=== PATIENT | female | born 1985 | race Caucasian/White ===

== ENCOUNTER 2018-02-16 07:00 | Inpatient (IN) | payer OTHER, SELFPAY ==
[2018-02-16 07:14] VITALS: BMI 42.7
[2018-02-16] MEDS: Lactated Ringers 1,000 ML 50 ML IV ×3 (07:30→11:59)
[2018-02-16 07:57] LABS: Hematocrit 37.3 % (37-47); Hemoglobin 12.9 g/dl (12.0-15.0); Mean Corp Hgb Conc 34.6 g/gl (32-36); Mean Corpuscular Hgb 30.1 pg (27.0-32.0); Mean Corpuscular Volume 87.1 fL (81-99); Mean Platelet Vol. 11.5 fl (6.2-12.0); Platelet Count 181 K/mm3 (150-450); RBC Distribution Width CV 13.4 % (11.6-14.6); RBC Distribution Width SD 41.1 fl (35.1-43.9); Red Blood Count 4.28 M/mm3 (4.2-5.4); Scan Indicated on CBC? Y/N NO; White Blood Count 13.9 K/mm3 (4.4-11.0)
[2018-02-16] MEDS: Oxytocin 30 units/NS 500 ml 30 UNITS/500 ML IV.SOLN IV (07:57)
[2018-02-16] MEDS: fentaNYL-bupivacaine (epidural) 100 ML BAG EPIDURAL ×2 (09:15→13:30)
[2018-02-16 10:41] LABS: Bedside Glucose 97 mg/dL (70-110)
[2018-02-16] MEDS: proMETHazine 25 MG/ML Syringe IV (14:07)
[2018-02-16] MEDS: Oxytocin 30 units/NS 500 ml 30 UNITS/500 ML IV.SOLN 334 UNITS IV (16:33)
[2018-02-16] MEDS: Oxytocin 30 units/NS 500 ml 30 UNITS/500 ML IV.SOLN 167 UNITS IV (17:03)
[2018-02-16] MEDS: 0.9% Saline Lock 10 ML Syringe IV (18:36)
[2018-02-16 20:10] VITALS: BP 120/65; PULSE 79; RESP 17; TEMP 36.6; O2SAT 99
[2018-02-16] MEDS: Naproxen 250 MG Tablet PO (21:39)
[2018-02-16 23:40] VITALS: BP 125/62; PULSE 66; RESP 18; TEMP 36.2; O2SAT 100
[2018-02-17] MEDS: Acetaminophen 500 MG Tablet 1000 MG PO (02:41)
[2018-02-17 04:30] VITALS: BP 128/66; PULSE 53; RESP 18; TEMP 35.8; O2SAT 99
[2018-02-17] MEDS: Naproxen 250 MG Tablet PO ×2 (05:49→18:12)
--- NOTE | 2018-02-17 07:47 | PCM.HP.OB ---
History Date of Admission: 02/16/18 Final MIGUEL: 02/14/18 Gestational age: 40 Weeks and 3 Days History of this : 35 yo @ 40w3d presents IOL postdates and AMA Pertinent Past Medical History: PFSH PMH negative PSH negative Family History Grandmother Diabetes Mother Cancer Brain Tumor Social History Smoking Status: Never smoker alcohol intake: never substance use type: does not use caffeine: Yes frequency: 3-4 times per week seatbelt use: always do you feel safe at home: Yes additional social history: [employer] History 4 Elective abortions Hx Para 2 Spontaneous abortions Hx # Term Pregnancies Ectopic pregnancies Hx # Pregnancies Multiple births # of living children Past Pregnancies Del. Date Name GA/Weeks Outcome Route Bth Weight Infant Gen Labor Lgth Anesthesia Del Locatn Provider FOB Unknown 2002 Daniella Unknown 2005 Mary Allergies shellfish derived Allergy (Verified 02/16/18 20:56) Vomiting Current Medications Acetaminophen (Tylenol) 1,000 mg PO Q8H PRN PRN PRN Reason: MILD PAIN (1-3/10)/Temp>99.6F Last Admin: 02/17/18 02:41 Dose: 1,000 mg Bisacodyl (Dulcolax) 10 mg RECTAL UD PRN PRN Reason: If no BM Dibucaine (Dibucaine) 1 applic TOPICAL TID PRN PRN; Protocol PRN Reason: Discomfort Hydrocortisone (Hytone) 1 applic TOPICAL TID PRN PRN; Protocol PRN Reason: Discomfort Lactated Ringer's () 1,000 mls @ 15 mls/hr IV .Q48H MARY PRN Reason: KVO Last Admin: 02/16/18 19:45 Dose: Not Given Methylergonovine Maleate (Methergine) 0.2 mg IM X1 PRN PRN Reason: Excess bleeding/uterine atony Naproxen (Naprosyn) 250 - 500 mg PO Q8H PRN PRN PRN Reason: MILD PAIN (1-3/10) Last Admin: 02/17/18 05:49 Dose: 500 mg Ondansetron HCl (Zofran) 4 mg IV Q4H PRN PRN PRN Reason: Nausea Oxycodone HCl (Oxyir) 5 - 10 mg PO Q4H PRN PRN PRN Reason: MOD-SEVERE PAIN (-09/05) Senna/Docusate Sodium (Senokot-S, Babs-Colace) 1 - 2 tablet PO DAILY PRN PRN PRN Reason: Constipation Simethicone (Mylicon) 80 mg PO PCHS PRN PRN Reason: Indigestion/Stomach pain Sodium Chloride () 5 - 15 ml IV UD PRN PRN Reason: SALINE FLUSH Smoking Status: Never smoker Alcohol: None Drug Use: none Number of Fetus(es): 1 - 130s moderate variability reactive no decls Review of Systems Constitutional: Denies: Chills, Fever, Weight Change HEENT: Denies: Head Aches, Sinus Congestion, Sinus Drainage Cardiovascular: Denies: Chest Pain, Palpitations Respiratory: Denies: Cough, Shortness of breath at rest, Sputum production Gastrointestinal: Denies: Abdominal Pain, Nausea, Vomiting Genitourinary: Denies: Dysuria Musculoskeletal: Denies: Joint Pain, Joint Tenderness Skin: Denies: Rash, Wounds Neurological: Denies: Numbness, Tingling, Focal weakness Psychiatric: Denies: Anxiety, Depression, Homicidal Ideations, Suicidal Ideations Hematologic/ Lymphatic: Denies: Easy Bruising, Easy Bleeding Physical Exam Vitals: Vital Signs Temp Pulse Resp BP Pulse Ox 96.5 F L 53 L 18 128/66 H 99 02/17/18 04:30 02/17/18 04:30 02/17/18 04:30 02/17/18 04:30 02/17/18 04:30 General: Alert, Oriented x3, No apparent distress Cardiovascular: Regular rate Lungs: Normal air movement Abdomen: Soft, Non Tender, Gravid Estimated gestational size: Appropriate for gestational size Presentation: Cephalic Cervix Dilation (cm): 4 Station: -2 Effacement (%): 50 Assessment/Plan 35 yo G3P 2 @ 40w3d IOL postdates ama pit iol arom clear flui epi prn
--- NOTE | 2018-02-17 07:49 | PCM.OB.VAG ---
Vaginal Delivery Maternal Presentation: Medically Indicated Induction iol postdates ama 40w3d Method of Induction: Pitocin Amniotic Membrane Rupture Type: Artificial Amniotic Fluid Description: Clear Final MIGUEL: 02/14/18 Gestational age: 40 Weeks and 3 Days Date of Procedure: 02/16/18 Pre-Operative Diagnosis: iol Post-Operative Diagnosis: same Surgery/ Procedure Performed: Spontaneous Vaginal Delivery Type of Anesthesia: Epidural Description of Procedure: Patient began pushing and delivered the head in the ANTON presentation. The head was delivered atraumatically. The anterior and posterior shoulders delivered without complication followed by the rest of the and the was placed on the maternal abdomen. Delayed cord clamping was employed for approximately 60 seconds. Cord was clamped and cut and gentle traction was applied to the cord and the placenta delivered spontaneously immediately following it was noted to be intact with three-vessel cord. The perineum and vagina were inspected and noted to have no laceration. EBL was 100 cc. Patient and tolerated delivery well. Presentation: ANTON Placental Delivery Description: Spontaneous Episiotomy Description: None Laceration: None Medications given after delivery: IV Pitocin Complications: None
--- NOTE | 2018-02-17 07:52 | PCM.PN.OB ---
Subjective: doing well no complaints - Physical Exam General: Alert, Oriented x3 Abdomen: Soft, Non Tender Vital Signs Temp Pulse Resp BP Pulse Ox 96.5 F L 53 L 18 128/66 H 99 02/17/18 04:30 02/17/18 04:30 02/17/18 04:30 02/17/18 04:30 02/17/18 04:30 Oxygen Delivery Method Room Air Weight: 240 lb 15.444 oz Body Mass Index (BMI) 42.7 Intake and Output for Last 24 Hours 02/15/18 02/16/18 02/17/18 23:59 23:59 23:59 Output Total 1500 / 1500 Balance -1500 / -1500 Laboratory Tests Past 24 Hrs 02/16/18 02/16/18 07:30 07:30 WBC 13.9 H RBC 4.28 Hgb 12.9 Hct 37.3 MCV 87.1 MCH 30.1 MCHC 34.6 RDW 13.4 RDW Differential 41.1 Plt Count 181 MPV 11.5 Blood Type A POSITIVE Antibody Screen NEGATIVE POC Glucose 02/16/18 09:51 POC Glucose 97 Medical Necessity - Tobacco Use Smoking Status: Never smoker Assessment/Plan s/p routine care de home
--- NOTE | 2018-02-17 07:53 | DCINST_ITS ---
Discharge Diet: No Restrictions Discharge Activity: Return to Normal Activity, May not drive while taking narcotic pain medications., May Shower May resume sexual activity in: 4-6 weeks Call your doctor if your incision/area has: Continuous Slow Oozing, Sudden Increased Bleeding, Increased Pain/ Swelling, Increased Redness, Foul Smelling Discharge Additional Instructions: If you experience any of the following, contact your healthcare provider. * Bleeding that soaks a pad every hour for 2 hours * Fever 100.4 or higher * Unrelieved incision or abdominal pain * Swelling, redness, discharge or bleeding from your incision or episiotomy site * Your incision begins to separate * Problems urinating (including inability to urinate or burning while urinating) . * Visual changes * Severe headache * Flu-like symptoms * Pain or redness in one of both of your breasts * Pain, warmth, tenderness or swelling in your legs, especially the calf area * Frequent nausea and vomiting * Symptoms of depression or anxiety If you experience any of the following, call 911 or go to the nearest Emergency Room. * Chest pain * Problems breathing * Seizure activity * Partial or complete paralysis of a body part, slurred speech, weakness or drooping of the face, or a sudden inability to walk or hold your balance Allergies/Adverse Reactions: Allergies shellfish derived Allergy (Verified 02/16/18 20:56) Vomiting Medications to take at Discharge Naproxen [Naprosyn] 250 - 500 mg PO Q8H PRN PRN #30 tab 02/17/18 The following prescriptions were given: Naproxen [Naprosyn] 250 - 500 mg PO Q8H PRN PRN #30 tab PRN Reason: MILD PAIN Please Follow Up With: Rut Main MD - [phone] When: Call to make an appointment with your doctor in 6 weeks. If you had elevated Blood pressure or 4th degree laceration you will need to be seen in 2 weeks. Primary Care Physician: Care Physician,No Primary [Primary Care Provider] -
--- NOTE | 2018-02-17 07:53 | PCM.DCVAG ---
Discharge Diet: No Restrictions Discharge Activity: Return to Normal Activity, May not drive while taking narcotic pain medications., May Shower May resume sexual activity in: 4-6 weeks Call your doctor if your incision/area has: Continuous Slow Oozing, Sudden Increased Bleeding, Increased Pain/ Swelling, Increased Redness, Foul Smelling Discharge Additional Instructions: If you experience any of the following, contact your healthcare provider. Bleeding that soaks a pad every hour for 2 hours Fever 100.4 or higher Unrelieved incision or abdominal pain Swelling, redness, discharge or bleeding from your incision or episiotomy site Your incision begins to separate Problems urinating (including inability to urinate or burning while urinating). Visual changes Severe headache Flu-like symptoms Pain or redness in one of both of your breasts Pain, warmth, tenderness or swelling in your legs, especially the calf area Frequent nausea and vomiting Symptoms of depression or anxiety If you experience any of the following, call 911 or go to the nearest Emergency Room. Chest pain Problems breathing Seizure activity Partial or complete paralysis of a body part, slurred speech, weakness or drooping of the face, or a sudden inability to walk or hold your balance Allergies/Adverse Reactions: Allergies shellfish derived Allergy (Verified 02/16/18 20:56) Vomiting Medications to take at Discharge Naproxen [Naprosyn] 250 - 500 mg PO Q8H PRN PRN #30 tab 02/17/18 The following prescriptions were given: Naproxen [Naprosyn] 250 - 500 mg PO Q8H PRN PRN #30 tab PRN Reason: MILD PAIN Please Follow Up With: Rut Main MD - [phone] When: Call to make an appointment with your doctor in 6 weeks. If you had elevated Blood pressure or 4th degree laceration you will need to be seen in 2 weeks. Primary Care Physician: Care Physician,No Primary [Primary Care Provider] -
[2018-02-17 07:55] VITALS: BP 135/60; PULSE 60; RESP 16; TEMP 36.3; O2SAT 99
[2018-02-17 12:10] VITALS: BP 118/64; PULSE 68; RESP 18; TEMP 36.2; O2SAT 99
[2018-02-17 16:27] VITALS: BP 128/69; PULSE 60; RESP 16; TEMP 36.1; O2SAT 99
== END 2018-02-17 18:40 | disposition home or self-care (01) | DRG 775 ==
PROVIDERS: Admitting Provider Obstetrics & Gynecology; Visit Provider Obstetrics & Gynecology
DX: O48.0 Post-term pregnancy (principal); Z37.0 Single live birth; Z3A.40 40 weeks gestation of pregnancy
CPT/HCPCS: 59025; 59050; 82962; 85027; 86850; 86900; 99218; J7120; A4216; G0378

== ENCOUNTER 2018-06-14 11:17 | Day surgery (SDC) | payer OTHER, SELFPAY ==
[2018-06-14] VITALS (7 sets, daily range): BP systolic 118–127; BP diastolic 60–78; PULSE 56–84; RESP 18; TEMP 36.2–36.8; O2SAT 97–100; BMI 48.2
--- NOTE | 2018-06-14 | GALL_PTH ---
PATIENT: JUVENAL CHOE LOC: [facility] [place] U#:[id number] AGE/SX: 33/F ROOM: RE06/14/[address]: Dr. Bonnie Vasquez MD : [id number] BED: DIS: 06/14/2018 SPEC #: [id number] RECD: 06/15/18 14:28 STATUS: ANY JILLIAN #: [id number] DARINEL: 06/14/18 00:[address]: Bonnie Vasquez DEPT: SURGICAL PATHOLOGY RECD BY: Zan Herron ENTERED: 06/15/18 14:28 SP TYPE: RITA LEVINE DR: No Primary Care Phys Tissues: Gallbladder, NOS Procedures: Surgery Specimen Level III HEADER OPERATION: Laparoscopic cholecystectomy PRE-OP DIAGNOSIS: Cholelithiasis TISSUE SUBMITTED: Gallbladder MICROSCOPIC DIAGNOSIS Gallbladder: Chronic cholecystitis and cholelithiasis. SJ:mary 06/18/18 MICROSCOPIC DESCRIPTION Slides are reviewed. GROSS DESCRIPTION Received is one container labeled with the patient's name and designated gallbladder. The specimen consists of a gallbladder measuring 9 cm in length and up to 3 cm in diameter. The external surface is pink-arizmendi, smooth and glistening for the most part. Focally it is granular, hemorrhagic and contains cautery artifact. The gallbladder contains green-yellow mucoid bile and multiple greenish-brown to black stones, sludge material and stone fragments measuring in aggregate 7 x 5.5 x 1 cm and 0.3 to 1 cm in greatest dimension. The mucosa is bile-stained and without any mass lesions. The gallbladder wall measures up to 0.3 cm in thickness. Focal areas of mucosal ulceration are also noted. Panel Gluer sections from the gallbladder and the cystic duct are submitted in one cassette. / SJ:mary 06/15/18 TC:3 CPT: 89985
--- NOTE | 2018-06-14 11:25 | EKG12_ITS ---
Test Reason : PRE-OP Blood Pressure : / mmHG Vent. Rate : 076 BPM Atrial Rate : 076 BPM P-R Int : 156 ms QRS Dur : 084 ms QT Int : 366 ms P-R-T Axes : 040 045 034 degrees QTc Int : 411 ms Normal sinus rhythm with sinus arrhythmia Normal ECG No previous ECGs available Confirmed by YARA WILSON ([id number]), editor magazine SHAVON DUEÑAS ([id number]) on 06/19/2018 2:07:55 PM Referred By: Bonnie Vasquez Confirmed By:YARA WILSON
[2018-06-14 11:36] LABS: Internal QC Validated? YES +Cl - CLEAR BKGD; Pregnancy, Urine Negative Negative
--- NOTE | 2018-06-14 12:14 | OP.PN_ITS ---
Immediate Post-Op Note Date of Procedure: 06/14/18 Primary Surgeon/Physician: Bonnie Vasquez senior database engineer: Suzan Abdalla Pre-Operative Diagnosis: cholelithiasis Post-Operative Diagnosis: cholelithiasis Surgery/Procedure Performed:: laparoscopic cholecystectomy Description of Surgical Findings:: acute on chronic cholecystitis, large stone in gallbladder, IOC aborted - too technically difficult and critical angle was visualized Estimated Blood Loss: 20 ml Specimen's removed: gallbladder and contents Type of Anesthesia:: General ASA Class: ASA2 Mod Systematic Disease - Admit VTE Documentation VTE Present on Admission: Yes VTE Mechan Device Prophylaxis: SCD's
--- NOTE | 2018-06-14 12:15 | DCINST_ITS ---
Discharge Diet: No Restrictions Discharge Activity: Return to Normal Activity, May not drive while taking narcotic pain medications. Lifting Restrictions: no lifting greater than 20 pounds Call your doctor if your incision/area has: Continuous Slow Oozing, Foul Smelling Discharge Call your doctor if you observe: Fever of 101 or Higher Additional Dressing/Incision Instructions:: Leave dressings in place. May get wet in shower. Do not soak - no tub baths/swimming Allergies/Adverse Reactions: Allergies shellfish derived Allergy (Verified 06/12/18 09:32) Vomiting Medications to take at Discharge NK [NK] 06/12/18 Primary Care Physician: Care Physician,No Primary [Primary Care Provider] - Test Results: Test results from this visit will be discussed in further detail at your follow- up appointment, if applicable. Please Follow Up With: Bonnie Vasquez MD - call When: to be seen in 7-10 days, please call for date and time, thank you
[2018-06-14] MEDS: Bupivacaine 0.25% 30 ML Vial (13:41)
--- NOTE | 2018-06-14 13:41 | PCM.OPRPT ---
Report of Operation Date of Procedure: 06/14/18 Pre-Operative Diagnosis: cholelithiasis Post-Operative Diagnosis: cholelithiasis Surgery/Procedure Performed:: laparoscopic cholecystectomy Description of Surgical Findings:: acute on chronic cholecystitis, large stone in gallbladder, IOC aborted - too technically difficult and critical angle was visualized sales enablement manager: Suzan Abdalla Type of Anesthesia:: General Anesthesiologist: Manuel Chahal Specimen's removed: gallbladder and contents Drains: none Estimated Blood Loss (mL): 20 ml Fluids Replaced: 1000 ml RL Description of Procedure: After informed consent was given, the patient was brought to the Operating Room and placed in the supine position. Appropriate time out protocol was followed. The patient was then placed under general endotracheal anesthesia. The abdomen was then prepped with a sterile surgical skin preparation and sterile surgical drapes were placed. An area above the umbilical dimple was grasped with penetrating clamps and the skin and subcutaneous tissues were infiltrated with local anesthetic. A skin incision was then made with a 15 blade scalpel. The anterior abdominal wall was elevated and a Veress needle was carefully inserted into the intraabdominal cavity. It was checked to be in the proper position with a normal saline drop test. A CO2 pneumoperitoneum was then created. Once this was achieved, then the Veress needle was removed and an 11mm trocar was placed in its stead. A 10mm laparoscope was then inserted into the trocar and careful attention was directed to the intraabdominal contents. There was no evidence of injury to any intraabdominal organs from insertion of the Veress needle or the trocar. Under direct visualization, a 5mm subxiphoid trocar and two lateral 5mm right subcostal trocars were placed. The skin and subcutaneous tissues at these sites were infiltrated with local anesthetic prior to placement of these trocars. Attention was then directed to the right upper quadrant of the abdomen. Graspers were placed in the lateral trocars to grasp the distal aspect of the gallbladder and direct it cephalad and to grasp the gallbladder at Hartmans pouch and direct it laterally. Dissection then began on the proximal gallbladder continuing down to the area of the triangle of Calot to bluntly dissect out the cystic duct. The inferior border of the gallbladder was then also bluntly dissected out and thus the critical view of safety triangle was completely delineated. The lower portion of the gallbladder was from the liver bed, thus exposing the inferior edge of the liver. As the cystic duct was visualized, it was noted that the cystic artery was densely attached to it. The neck of the gallbladder was identified and blunt dissection continued to dissect out a segment of the cystic duct. A clip was then placed on the neck of the gallbladder. A small ductotomy was then made. A Ranfac catheter was brought in through a separate skin incision and attempted to be placed into the cystic duct. However, despite multiple attempts, this could not be achieved. The patient's body habitus precluded threading the catheter into the duct. Therefore the intraoperative cholangiogram was aborted. The Ranfac catheter was then removed and two clips were placed proximal to the ductotomy and the cystic duct was then transected. The cystic artery was also within these clips. The gallbladder was then from the liver bed using electrocautery and thus able to be brought out of the umbilical port. It was then forwarded to pathology for analysis. The liver bed was carefully examined. There was no evidence of bile leakage or bleeding. The cystic duct and cystic artery stump had their clips intact and there was no evidence of bile leakage or bleeding. The remainder of the abdomen was grossly normal. The CO2 was released and all trocars removed intact. The periumbilical fascia was approximated with a [id number]-[id number] 0 vicryl suture. All skin incision were closed with 4-0 monocryl in a subdermal fashion. Cavilol and Steristrips were used to reinforce the skin closure. Sterile dressings were applied to all wounds. The patient was extubated and brought to the Recovery Room in stable condition. - Complications none noted - Admit VTE Documentation VTE Present on Admission: Yes VTE Mechan Device Prophylaxis: SCD's
[2018-06-14] MEDS: HYDROcodone Bitartrate/Apap 5/325 Tablet PO (15:04)
== END 2018-06-14 15:39 | disposition home or self-care (01) ==
LOC: SDC 11:18 → AC 11:18
PROVIDERS: Visit Provider Surgery
PROC: (CPT 47610; principal; 2018-06-14 12:25)
DX: K80.10 Calculus of gallbladder with chronic cholecystitis without obstruction (principal); E66.09 Other obesity due to excess calories; Z68.39 Body mass index [BMI] 39.0-39.9, adult
CPT/HCPCS: 47562; 81025; 88304; 93005; J7120; J2405

== ENCOUNTER 2021-09-17 20:30 | Emergency (ER) | payer OTHER, SELFPAY ==
[2021-09-17 20:30] VITALS: BP 164/99; PULSE 114; RESP 18; TEMP 36.3; O2SAT 99; BMI 52.2
[2021-09-17 20:32] VITALS: BP 164/99; PULSE 114; RESP 18; TEMP 36.3; O2SAT 99
--- NOTE | 2021-09-17 20:54 | EDS_ITS ---
HPI History of Present Illness Chief Complaint: General Illness Informant: patient Narrative Narrative: Patient presents with 3 days of soft stools. This is not watery diarrhea. She was concerned because occasionally when she wipes she sees some dark spots. But the stool is not black and there is no visible blood. She occasionally gets a little bit of abdominal cramping but not all the time. She has no dysuria frequency or urgency. She does have some lower back pain across both sides of her back. She gets back pain on occasion. But she is concerned because she is also had UTIs when she has had back pain. Yet she has no urinary symptoms at this time. Last menstrual period is unknown as she is on Mirena ring and does not really have menstrual cycles. No abdominal surgery. No fevers. She has never had nausea or vomiting with this. She is eating and drinking normally. No known sick contacts. No antibiotics for approximately 3 months. No known exposures to infections. No exposure to bad water. No vqdr-xie-dghqlhj meds. Nothing specifically makes her symptoms better or worse. PFSH PFSH Medical History no medical history Home Medications hydrocodone-acetaminophen 1 tab PO Q6H PRN PRN 5 Days #15 tab 06/14/18 [Rx Last Taken Unknown] Allergy/AdvReac Type Severity Reaction Status Date / Time shellfish derived Allergy Vomiting Verified 09/17/21 20:34 Family History Grandmother Diabetes Mother Cancer Brain Tumor Social History Smoking Status: Never smoker alcohol intake: never substance use type: does not use caffeine: Yes frequency: 3-4 times per week seatbelt use: always do you feel safe at home: Yes additional social history: [employer] ROS ROS ED Constitutional Constitutional ED: Denies chills, fever(s) or subjective ENT ENT ED: Denies rhinorrhea or sore throat Cardiovascular Cardiovascular: Denies chest pain or palpitations Respiratory/Chest Respiratory/Chest: Denies cough, dyspnea or sputum Gastrointestinal Gastrointestinal: Reports diarrhea; Denies abdominal pain, constipation, melena, nausea or vomiting Genitourinary Genitourinary ED: Denies dysuria, hematuria or urinary frequency Musculoskeletal Musculoskeletal: Reports back pain; Denies arthralgias, myalgias or neck pain Integumentary Denies abscess or rash Neurologic Neurologic: Denies headache(s), paresthesias or weakness Endocrine Endocrinology: Denies polydipsia or polyuria Allergic/Immunologic Allergic/Immunologic ED: Denies urticaria EXAM Physical Exam Const Vital Signs: 09/17/21 20:30 09/17/21 20:32 09/17/21 20:36 Temperature 97.4 F L 97.4 F L Temperature Source Temporal Temporal Pulse Rate 114 H 114 H Respiratory Rate 18 18 Respiratory Effort Normal Non-Labored Blood Pressure 164/99 H 164/99 H Blood Pressure Mean 120 120 Pulse Ox 99 99 Oxygen Delivery Method Room Air Room Air Positive well nourished, well developed and obese General Appearance ED: well developed and NAD Nutritional Appearance: obese HEENT Reports moist mucous membranes Negative for trauma Eyes General Eye ED: Negative for pale conjunctiva or scleral icterus Neck no JVD Resp normal respiratory effort and clear to auscultation bilaterally Effort and Inspection: Negative for pain with movement Auscultation: Negative for rales, rhonchi or wheezes Cardio regular rate and regular rhythm GI normal to inspection, nondistended, normoactive bowel sounds and non-tender GI Narrative: Obese but there is no tenderness in any quadrant or suprapubic area. No rebound or guarding. Bowel sounds are normal. Palpation: soft Narrative: No CVA tenderness. No suprapubic tenderness. By history, she has no discharge or bleeding. Back/Spine no CVA tenderness Back/Spine Narrative: No real CVA tenderness. She has mild tenderness with very low paraspinal on both sides closer to L4-5 and the sacral area. No skin changes. Extremity normal to inspection Neuro oriented x3 Sensorium / Orientation: alert Psych mental status grossly normal Mood & Affect: anxious Skin no rashes or lesions noted and no wounds MDM MDM MDM Narrative Medical decision making narrative: Urine shows negative leukocyte esterase, negative nitrites, clear urine, 0-5 white cells. is negative. There is also no bacteria in the urine. This does not meet criteria for UTI. We will not treat with antibiotics. Patient will decrease her fluid intake. She has been drinking very large amounts of fluid with a sore back thinking that might have been a UTI. However she had no urinary symptoms. This might also be contributing to her soft stools. If she develops fevers pains or other concerns she should return. Lab Data Attestation: I reviewed the patient's lab results. Labs: Laboratory Results - last 24 hr 09/17/21 20:35 Urine Color Yellow Urine Clarity Clear Urine pH 6.5 Ur Specific [place] 1.010 Urine Protein Negative Urine Glucose (UA) Normal Urine Ketones Negative Urine Occult Blood 10 H Urine Nitrite Negative Urine Bilirubin Negative Urine Urobilinogen Normal Ur Leukocyte Esterase Negative Urine RBC 0 SEEN Urine WBC 0-5 SEEN Ur Squamous Epith Cells 0-5 SEEN Urine Bacteria 0 SEEN Urine Mucus 0 SEEN Urine Test Negative Discharge Plan Triage Chief Complaint: General Illness ED Provider: Pablo Mabry Dx/Rx/DC Orders Clinical Impression: Diarrhea Instructions: ED Diarrhea, Unknown Cause Prescriptions: No Action hydrocodone-acetaminophen 1 TABLET tablet 1 tab PO Q6H PRN PRN (Reason: Pain) 5 Days Qty: 15 RF: 0 Primary Care Provider: Shira Gates Referrals: Shira Gates MD [Primary Care Provider] - 3-5 Days if not improving Disposition Disposition: Home, Self Care
[2021-09-17 21:13] LABS: Bacteria 0 SEEN /hpf (None Seen); Mucous, Urine 0 SEEN /hpf (<or=2+); Red Blood Cells-Urine 0 SEEN /hpf (0-5)
[2021-09-17 21:16] LABS: Color, Urine Yellow (Yellow); Glucose, Dipstick Normal (Normal); Ketone-Dipstick Negative (Negative); Leukocyte Esterase-Dipstick Negative /ul (Negative); Nitrite-Dipstick Negative (Negative); Occult Blood-Urine 10 /ul (Negative); Protein-Dipstick Negative (Negative); Urine Bilirubin Dipstick Negative (Negative); Urine Clarity Clear (Clear); Urine Urobilinogen Normal (Normal); Urine pH 6.5 (5.0 - 8.0)
[2021-09-17 21:47] LABS: Internal QC Validated? YES +Cl - CLEAR BKGD; Pregnancy, Urine Negative Negative; Squamous Epithelial Cells - UA 0-5 SEEN /hpf (5-10); White Blood Cells 0-5 SEEN /hpf (0-5)
== END 2021-09-17 22:32 | disposition home or self-care (01) ==
PROVIDERS: Emergency Provider Emergency Medicine; PCP Internal Medicine
DX: R19.7 Diarrhea, unspecified (principal); M54.50 Low back pain, unspecified; E66.9 Obesity, unspecified; Z68.43 Body mass index [BMI] 50.0-59.9, adult
CPT/HCPCS: 81001; 81025; 99282

== ENCOUNTER 2024-03-06 14:16 | Emergency (ER) | payer OTHER, SELFPAY ==
[2024-03-06 14:17] VITALS: BP 152/94; PULSE 82; RESP 18; TEMP 36.1; O2SAT 96; BMI 51.3
--- NOTE | 2024-03-06 14:27 | EKG12_ITS ---
Test Reason : CP Blood Pressure : / mmHG Vent. Rate : 075 BPM Atrial Rate : 075 BPM P-R Int : 150 ms QRS Dur : 086 ms QT Int : 390 ms P-R-T Axes : 021 070 013 degrees QTc Int : 435 ms Normal sinus rhythm Normal ECG Confirmed by Ramses Yanes ([id number]), newspaper managing editor NAILA FR[place] ([id number]) on 03/08/2024 7:18:07 AM Referred By: AR/TA Confirmed By:Ramses Yanes
[2024-03-06 15:04] LABS: Absolute Lymphocyte Count 3.17 X10^3/uL (0.83-4.51); Absolute Neutrophil Count 10.2 X10^3/uL (2.0-7.7); Basophil% 0.7 % (0-1); Eosinophil# 0.34 X10^3/uL; Eosinophils% 2.3 % (0-5); Hematocrit 47.7 % (37-47); Hemoglobin 16.2 g/dL (12.0-15.0); Lymphocyte # 3.17 X10^3/ul (0.83-4.51); Lymphocyte % 21.6 % (19-41); Mean Corpuscular Hgb 30.6 pg (27.0-32.0); Mean Corpuscular Volume 90.2 fL (81-99); Mean Platelet Vol. 10.3 fl (6.2-12.0); Monocyte# 0.74 X10^3/uL; Monocyte% 5.1 % (0-10); NRBC Flagged by Analyzer 0 % (0-5); Neutrophil # 10.16 X10^3/uL (2.7-7.7); Neutrophil % 69.3 % (47-70); Platelet Count 280 K/mm3 (150-450); RBC Distribution Width CV 12.5 % (11.6-14.6); RBC Distribution Width SD 40.8 fl (35.1-43.9); Red Blood Count 5.29 M/mm3 (4.2-5.4); White Blood Count 14.7 K/mm3 (4.4-11.0)
--- NOTE | 2024-03-06 15:08 | EDS_ITS ---
HPI History of Present Illness Chief Complaint: Chest Pain Narrative Narrative: 39-year-old female who denies significant past medical history presents with left-sided chest pain that she has had since yesterday evening around 10 PM. She does state that she believes she has a diagnosis of irritable bowel syndrome, and may have had indigestion previously, but it never affects her chest. She states her pain which is hard for her to describe, is on the left side underneath her breast. She denies any fevers or chills, no cough, no nausea or vomiting, no diaphoresis. Pain is not pleuritic. No real exacerbating or alleviating factors. She denies any leg swelling. Of note, she does have a Mirena in place is a form of control. She states that lasted for few hours yesterday evening, then went away, and then when she woke up this morning, it had returned. Currently, she states she does not really feel any pain or pressure. [facility] Medical History (Updated 03/06/24 @ 17:57 by Tod Boyd MD) Miscarriage Home Medications hydrocodone-acetaminophen 5-325mg 5mg-325mg 1 tab PO Q6H PRN PRN Pain 5 days #15 tabs 06/14/18 [Rx Last Taken Unknown] Allergy/AdvReac Type Severity Reaction Status Date / Time shellfish derived Allergy Vomiting Verified 03/06/24 14:19 Family History Grandmother Diabetes Mother Cancer Brain Tumor Surgical History (Updated 03/06/24 @ 15:17 by Essie Jc) History of cholecystectomy Social History Smoking Status: Never smoker alcohol intake: never substance use type: does not use caffeine: Yes frequency: 3-4 times per week seatbelt use: always do you feel safe at home: Yes additional social history: [employer] ROS ROS ED ROS Narrative Constitutional: No fever, no chills. HEENT: No sore throat. No neck pain. No loss of vision. No rhinorrhea. Cardiovascular: Left-sided chest pain. No palpitations. No pedal edema. Respiratory: No cough, no shortness of breath. Abdominal: No abdominal pain. No nausea. No vomiting. Genitourinary: No dysuria. No hematuria. Musculoskeletal: No myalgias. No arthralgias. Neurologic: No headaches. No dizziness. No lightheadedness. Skin: No rash. No change in color. Psychiatric: No depression. No anxiety. EXAM Physical Exam Narrative Exam Narrative: Afebrile. Vital signs noted. HEENT: Normocephalic. Atraumatic. PERRL, EOMI. Neck soft and supple. No point tenderness or step off. Cardiovascular: Regular rate and rhythm. No murmurs, rubs, or gallops appreciated. Respiratory: No tachypnea. Lungs clear to auscultation bilaterally. Gastrointestinal: Abdomen soft, nontender, with normoactive bowel sounds. No rebound or guarding. Neurological: Awake. Alert. Nonfocal, nonlateralizing. Skin: No rash. Normal color. No pallor. Musculoskeletal: No pedal edema. Full range of motion extremities. Const Vital Signs: 03/06/24 14:17 03/06/24 15:15 03/06/24 15:15 Temperature 96.9 F L Temperature Source Temporal Pulse Rate 82 Respiratory Rate 18 Respiratory Pattern Normal Blood Pressure 152/94 H Blood Pressure Mean 113 Pulse Ox 96 Oxygen Delivery Method Room Air Room Air 03/06/24 15:17 03/06/24 16:00 03/06/24 17:00 Temperature Temperature Source Pulse Rate 77 81 79 Respiratory Rate 14 17 16 Respiratory Pattern Blood Pressure 166/69 H 154/85 H 138/84 H Blood Pressure Mean 101 104 102 Pulse Ox 97 94 98 Oxygen Delivery Method Room Air Room Air 03/06/24 18:00 03/06/24 18:00 Temperature 98.7 F Temperature Source Pulse Rate 79 79 Respiratory Rate 6 L 16 Respiratory Pattern Blood Pressure 128/80 H 128/80 H Blood Pressure Mean 96 96 Pulse Ox 97 97 Oxygen Delivery Method Room Air Heart Score History: Slightly/Non-Suspicious ECG: Normal Age: </= 45 years Risk Factors: No Risk Factors Score: 0 MDM MDM MDM Narrative Medical decision making narrative: In the differential diagnosis is ACS versus pneumonia versus pneumothorax versus pulmonary embolism. History and physical does not support pneumonia as she is not febrile. Additionally, does not support pneumothorax. EKG was obtained and interpreted by myself independently as normal sinus rhythm at 75 bpm without ectopy or acute ST changes. No STEMI. I reviewed her laboratory work and she has an elevated white count of 14.7 which I think is nonspecific, but appears chronic when compared to prior laboratories. Hemoglobin hemoconcentrated at 16.2. Hematocrit is 47.7 with normal platelet count of 280. D-dimer is negative at 0.32, I do not feel that she has a pulmonary embolism. I reviewed her basic metabolic panel and she has a chloride of 108 and elevated which I think is nonspecific, glucose appropriately elevated at 129 with anion gap low at 4 so I have low suspicion for diabetic ketoacidosis. Troponin initially is 14 with repeat being 13. I feel she has been ruled out with biomarkers for acute coronary syndrome/ischemia. Chest x-ray in 1 view interpreted by myself independently shows no evidence of pneumothorax or pneumonia. I reviewed the radiology report which confirms my independent interpretation. At this point in time I do not feel that she requires observation. I feel she can be discharged safely home with follow-up to her primary care provider. Return instructions to the emergency department were reviewed. There may be some anxiety component to her chest discomfort as well. Disposition is discharged home in stable condition. History & Record Review Discussion w/independent historian: Patient and Family Additional record(s) reviewed:: Prior labs Lab Data Attestation: I reviewed the patient's lab results. Labs: Laboratory Results - last 24 hr 03/06/24 03/06/24 03/06/24 14:45 15:20 17:10 WBC 14.7 H RBC 5.29 Hgb 16.2 H Hct 47.7 H MCV 90.2 MCH 30.6 MCHC 34.0 RDW Std Deviation 40.8 RDW Coeff of Richard 12.5 Plt Count 280 MPV 10.3 Immature Gran % (Auto) 1.000 H Neut % (Auto) 69.3 Lymph % (Auto) 21.6 Bonner % (Auto) 5.1 Eos % (Auto) 2.3 Baso % (Auto) 0.7 Absolute Neuts (auto) 10.2 H Absolute Lymphs (auto) 3.17 Nucleated RBC % 0 D-Dimer Quant (PE/DVT) 0.32 Sodium 137 Potassium 3.7 Chloride 108 H Carbon Dioxide 25.0 Anion Gap 4 L BUN 9 Creatinine 0.86 Estim Creat Clear Calc 114.23 Est GFR (MDRD) Af Amer 94 Est GFR (MDRD) Non-Af 78 BUN/Creatinine Ratio 10.5 Glucose 129 H Calcium 8.8 Troponin I High Sens 14 13 Radiography Diagnostic Testing: Clinical Impression(s) from Imaging Studies Chest X-Ray 03/06/24 15:25 IMPRESSION: Normal x-ray examination of the chest. Electronically Signed: Carlos Stahl MD at 15:40 EDT Reading Location ID and State: [facility] / [place] , Service support , Discharge Plan Triage Chief Complaint: Chest Pain ED Provider: Tod Boyd Dx/Rx/DC Orders Clinical Impression: Chest pain Instructions: ED Chest Pain, Uncertain Cause Prescriptions: No Action hydrocodone-acetaminophen 1 TABLET tablet 1 tab PO Q6H PRN PRN (Reason: Pain) 5 Days Qty: 15 0RF Primary Care Provider: Shira Gates Referrals: Shira Gates MD [Primary Care Provider] - 3-5 Days if not improving Disposition Disposition: Home, Self Care
[2024-03-06 15:16] LABS: Anion Gap 4 (5-15); BUN 9 mg/dL (7-18); BUN/Creat Ratio 10.5 RATIO (10-20); Calcium,Total 8.8 mg/dL (8.5-10.1); Chloride 108 mmol/L (98-107); Creatinine, Serum 0.86 mg/dL (0.55-1.02); EST Glomerular Filtration Rate 78 mL/min (>60); Est Glom Filt Rate - Afr Amer 94 mL/min (>60); Estimated Creatinine Clearance 114.23 ml/min; Glucose 129 mg/dL (74-106); Potassium 3.7 mmol/L (3.5-5.1); Sodium Level 137 mmol/L (136-145); Troponin-I HS (w/2H Reflex) 14 pg/mL (3.0-54.0)
[2024-03-06 15:17] VITALS: BP 166/69; PULSE 77; RESP 14; O2SAT 97
--- NOTE | 2024-03-06 15:25 | RAD_ITS ---
STUDY: X-RAY CHEST REASON FOR EXAM: Female, 39 years old. Chest pain TECHNIQUE: Single AP portable view of the chest. COMPARISON: None. FINDINGS: EKG electrodes are seen. The lungs are clear and expanded. There is no demonstrated pleural abnormality. Normal size heart. Normal mediastinum and joshua. Normal visualized pulmonary arteries. Normal visualized aortic arch and descending thoracic aorta. Normal visualized thoracic spine. Normal visualized ribs, clavicles, and shoulders. There is no demonstrated abnormality of the visualized soft tissue structures of the upper abdomen. RAD/Chest 1 View (Portable) IMPRESSION: Normal x-ray examination of the chest. Electronically Signed: Carlos Stahl MD at 15:40 EDT ,
[2024-03-06 15:41] LABS: D-Dimer Quantitative (DVT/PE) 0.32 FEU/ug/m (0.27-0.49)
[2024-03-06 16:00] VITALS: BP 154/85; PULSE 81; RESP 17; O2SAT 94
[2024-03-06 16:57] LABS: Reflex Troponin-HS? (from REC) Y
[2024-03-06 17:00] VITALS: BP 138/84; PULSE 79; RESP 16; O2SAT 98
[2024-03-06 17:41] LABS: Troponin-I HS 13 pg/mL (3.0-54.0)
[2024-03-06 18:00] VITALS: BP 128/80; PULSE 79; RESP 16; RESP 6; TEMP 37.1; O2SAT 97
== END 2024-03-06 18:25 | disposition home or self-care (01) ==
PROVIDERS: Emergency Provider Emergency Medicine; PCP Internal Medicine; Visit Provider Emergency Medicine
DX: R07.9 Chest pain, unspecified (principal)
CPT/HCPCS: 71045; 80048; 84484; 85025; 85379; 93005; 99284; A4216

== ENCOUNTER 2025-05-20 05:29 | Emergency (ER) | payer OTHER, SELFPAY ==
[2025-05-20 05:29] VITALS: BP 186/62; PULSE 92; RESP 18; TEMP 35.5; O2SAT 98; BMI 52.2
[2025-05-20 05:36] VITALS: BP 186/62; PULSE 85; RESP 16; TEMP 36.1; O2SAT 99
--- NOTE | 2025-05-20 05:55 | CT_ITS ---
PROCEDURE: ORB SELLA POST FOSSA EAR W/O 05/20/2025 REASON FOR EXAM: BILAT EAR DISCOMFORT, DYSEQUILIBRIUM TECHNIQUE: ORB SELLA POST FOSSA EAR W/O CONTRAST: None. One or more dose reduction techniques were used (e.g., Automated exposure control, adjustment of the mA and/or kV according to patient size, use of iterative reconstruction technique). RADIATION DOSE SUMMARY: CTDlvol: 67.58 mGy DLP: 624 mGycm COMPARISON: None. FINDINGS: Minimal bilateral soft tissue thickening/secretions in the mastoid air cells, possibly minimal acute inflammatory pathology. Unremarkable middle ear cavities. Unremarkable middle ear ossicles. Unremarkable internal auditory canals and the cerebellopontine angles. Unremarkable external auditory canals. CT/Orb Sella Post Fossa Ear w/o IMPRESSION: Minimal bilateral soft tissue thickening/secretions in the mastoid air cells, p ossibly minimal acute inflammatory pathology. No other abnormality is noted. Reading [facility]
--- NOTE | 2025-05-20 05:57 | EX.ED.DYSGE1 ---
HPI History of Present Illness Chief Complaint: Ear Problem Informant: patient Narrative Narrative: Patient presents for disequilibrium she has had for a couple days now that is making her feel nauseated. It is worse with position changes. She denies any syncope or lateralizing peripheral neurologic symptoms, vision changes. She has had issues with the left ear and some hearing loss for about a year, she has been having pain and some crackling in both ears for the past 3 to 4 weeks. She saw [facility] urgent care and was placed on a course of antibiotics although she was told that her ears look like maybe there was fluid behind them and not necessarily an infection, some of the pain improved, but then it got worse and she was having more trouble with ear discomfort so she was placed on prednisone but it made her blood sugar go up so she stopped that 3 or 4 days ago, after taking it for about 5 days. Now she has disequilibrium. She is having trouble with balance. She has fullness in her head and ears. She denies otorrhea. Denies neck stiffness. No fevers or chills. Feels like she has problem popping her ears. When she tries she gets crackling. [facility] Medical History Miscarriage Home Medications ?Medication ?Instructions ?Recorded ?Last Taken ?Type fluticasone propionate 50 1 spray intranasal DAILY 05/20/25 Unknown History mcg/actuation nasal spray,suspension meclizine 25 mg tablet 25 mg PO TID PRN dizziness #20 tabs 05/20/25 Unknown Rx ondansetron 8 mg disintegrating 8 mg PO Q8H PRN nausea and 05/20/25 Unknown Rx tablet vomiting #20 tabs Allergy/AdvReac Type Severity Reaction Status Date / Time shellfish derived Allergy Vomiting Verified 05/20/25 05:30 Family History Grandmother Diabetes Mother Cancer Brain Tumor Surgical History History of cholecystectomy Social History Smoking Status: Never smoker alcohol intake: never substance use type: does not use caffeine: Yes frequency: 3-4 times per week seatbelt use: always do you feel safe at home: Yes additional social history: Brian- ROS ROS ED Constitutional Constitutional ED: Denies chills or fever(s) Eyes Eyes: Denies change in vision or diplopia ENT ENT ED: Reports as per HPI, abnormal hearing, disequillibrium, ear pain bilateral and other Details: Some tinnitus yesterday, resolved ; Denies ear discharge, rhinorrhea or sore throat Cardiovascular Cardiovascular: Denies chest pain or palpitations Respiratory/Chest Respiratory/Chest: Denies cough or dyspnea Gastrointestinal Gastrointestinal: Reports nausea; Denies abdominal pain, diarrhea or vomiting Genitourinary Genitourinary ED: Denies dysuria or hematuria Musculoskeletal Musculoskeletal: Denies back pain or neck pain Integumentary Denies abscess or rash Neurologic Neurologic: Reports headache(s); Denies paresthesias or weakness Psychiatric Psychiatric: Denies suicidal thoughts EXAM Physical Exam Const Vital Signs: 05/20/25 05:29 05/20/25 05:36 Temperature 95.9 F L 97 F L Temperature Source Temporal Oral Pulse Rate 92 85 Respiratory Rate 18 16 Blood Pressure 186/62 H 186/62 H Blood Pressure Mean 103 103 Pulse Ox 98 99 Oxygen Delivery Method Room Air Room Air Positive well nourished and well developed General Appearance ED: well developed and NAD HEENT Reports moist mucous membranes HEENT Narrative: TMs appear unremarkable bilaterally. Insufflation not available. Normal EAC bilaterally, no discomfort with manipulation of the pinna or the tragus bilaterally. Mastoid processes are benign and without erythema or tenderness bilaterally. No significant facial sinus tenderness. normocephalic and atraumatic Eyes PERRL and EOMs intact bilaterally Eyes Narrative: No pathologic nystagmus or direction changing nystagmus. Neck full ROM and supple Resp normal respiratory effort and clear to auscultation bilaterally Cardio regular rate, regular rhythm and no murmurs GI non-tender and non-distended Auscultation: normoactive bowel sounds Palpation: soft Back/Spine no CVA tenderness General Back: other FROM Extremity normal to inspection General Extremety ED: Negative for edema, pulses abnormal or tenderness General Extremity: Negative for edema or pulses abnormal Neuro oriented x3, CN's II-XII intact bilaterally and no sensory deficits noted Neuro Narrative: Normal speech no aphasia or dysarthria. Normal [id number] and [id number] without any dysmetria. Normal peripheral and central neurologic exams. NIHSS 0. Sensorium / Orientation: awake and alert Motor Exam: strength 5/5 throughout Psych Mood & Affect: anxious Skin no rashes or lesions noted and no wounds MDM MDM MDM Narrative Medical decision making narrative: Given the persistence of this patient's symptoms would certainly sound ear-related, with disequilibrium that is peripheral, I obtained a CT of the sella/temporal bone including both ears, I reviewed the images and report which I agree with, it basically shows nothing acute except for some minimal bilateral soft tissue thickening secretions in the mastoid air cells. I do not think this is indicative of an acute infection especially given the bilateral nature of it. Furthermore, the rest of her sinuses including the sphenoid sinus are clear of acute disease. I suspect this is an inner ear issue with or without eustachian tube dysfunction but since she has had symptoms that have been persistent for the past 3 to 4 weeks and has already been on daily nasal fluticasone, I recommend seeing ENT. Will prescribe meclizine and Zofran for supportive care in the meantime which helped her here. Radiography Diagnostic Testing: Clinical Impression(s) from Imaging Studies CT Orbit Sella Inner 05/20/25 05:55 IMPRESSION: Minimal bilateral soft tissue thickening/secretions in the mastoid air cells, possibly minimal acute inflammatory pathology. No other abnormality is noted. Reading Location: [place] [address] Discharge Plan Triage Chief Complaint: Ear Problem ED Provider: Ricco Dickey Dx/Rx/DC Orders Clinical Impression: Peripheral vertigo of both ears, Acute dysfunction of both eustachian tubes, Otalgia of both ears Instructions: Inner Ear Balance Prescriptions: New ondansetron 8 mg tablet,disintegrating 8 mg PO Q8H PRN (Reason: nausea and vomiting) Qty: 20 0RF meclizine 25 mg tablet 25 mg PO TID PRN (Reason: dizziness) Qty: 20 0RF No Action fluticasone propionate 50 mcg/actuation spray,suspension 1 spray INTRANASAL DAILY Primary Care Provider: Shira Gates Referrals: Napoleon Rojas MD [Med Staff - Active Staff] - As soon as possible Print Language: Ukrainian Disposition Disposition: Home, Self Care
--- OUTSIDE RECORDS SUMMARY | 2025-05-20 06:13 | XMS RPT_ITS | CCD ---
Author Organization [facility] Care Team Providers Care Flexo Press Operator Name Role Phone Bronson Medrano MD Primary Care Provider Tod Boyd Attending Unavailable Bronson Medrano Primary Care Unavailable Bronson Medrano MD Primary Care Provider Syed COMMERCIAL INTERNSHIP.STOCKKEEPER, Yasmin Unavailable Wanda COMMERCIAL INTERNSHIP.BEVERAGE HOST, Jeanine Unavailable Wanda COMMERCIAL INTERNSHIP.BEVERAGE HOST, Jeanine Unavailable Syed COMMERCIAL INTERNSHIP.STOCKKEEPER, Yasmin Unavailable [phone] TALAMPAS, BRONSON D Primary Care Unavailable TALAMPAS, BRONSON D Primary Care Unavailable SELF Referring Unavailable TALAMPAS, BRONSON D Attending Unavailable TALAMPAS, BRONSON D Primary Care Unavailable ROYCE BLOOM Attending Unavailable TALAMPAS, BRONSON D Primary Care Unavailable CLANDRES LUONG Attending Unavailable Allergies Allergy Classification Reported Allergen(s) Allergy Type Date of Onset Reaction(s) Facility (20 sources) Seasonal allergy; Translations: [SEASONAL ALLERGIES] Allergy to substance 1 Other: See Comments [facility] (20 sources) Shellfish; Translations: [SHELLFISH CONTAINING PRODUCTS] Drug Intolerance 8 Vomiting [facility] Work Phone: (1 source) Shellfish Drug allergy (disorder) 4 [facility] Repository Medications Current Medications Medication Drug Class(es) Dates Sig (Normalized) Sig (Original) acetaminophen 325 mg / HYDROcodone bitartrate 5 mg oral tablet (1 source) Opioid Agonist Start: 06-14-2018 take 1 tablet by mouth every six hours as needed Hydrocodone-Acet aminophen Active 1 TABLET PO EVERY 6 HOURS NEEDED 15 5 June 14, 2018 12:00am amoxicillin 875 mg / clavulanate 125 mg oral tablet (2 sources) Penicillin-class Antibacterial Start: 05-01-2025 End: 05-06-2025 take 1 tablet by mouth twice daily amoxicillin-clav ulanate potassium (AUGMENTIN) 875-125 mg per tablet Take 1 tablet by mouth two times a day for 5 days. 10 tablet 05/01/2025 05/06/2025 Active Start: 06-07-2024 End: 06-12-2024 take 1 tablet by mouth twice daily at mealtime amoxicillin-clavulanate potassium (AUGMENTIN) 875-125 mg per tablet Take 1 tablet by mouth two times a day for 5 days. Take with food 10 tablet 0 06/07/2024 06/12/2024 Active benzonatate 100 mg oral capsule (3 sources) Non-narcotic Antitussive Start: 05-01-2025 take 2 capsules by mouth three times daily as needed benzonatate (TESSALON PERLE) 100 mg capsule Indications: Acute non-recurrent maxillary sinusitis Take 2 capsules by mouth three times a day as needed. 21 capsule 05/01/2025 Active cetirizine hydrochloride 10 mg oral tablet (3 sources) Histamine-1 Receptor Antagonist take 1 tablet by mouth once daily cetirizine (ZYRTEC) 10 mg tablet Take 10 mg by mouth once daily. Active fluconazole 150 mg oral tablet (1 source) Azole Antifungal Start: 03-04-2022 End: 03-04-2022 fluconazole (DIFLUCAN) 150 mg tablet Take 1 tablet by mouth one time only for 1 dose. Repeat in 3 days as needed. 2 tablet 0 03/04/2022 03/04/2022 Active Comment on above: Take 1 tablet by [facility] one time only for 1 dose. Repeat in 3 days as needed. fluticasone propionate 0.05 mg/actuat metered dose nasal spray (10 sources) Corticosteroid Start: 05-01-2025 take 1 spray(s) nasal route once daily fluticasone (FLONASE ALLERGY RELIEF) 50 mcg/actuation nasal spray Use 1 spray in each nostril once daily. 11.1 mL 3 05/01/2025 Active Start: 04-16-2024 take 2 spray(s) by m out once daily fluticasone (FLONASE) 50 mcg/actuation nasal spray Indications: ETD (Eustachian tube dysfunction), left Use 2 Sprays in each nostril once daily. Rinse mouth after use. 1 Each 04/16/2024 Active levonorgestrel 0.199323 mg/hr intrauterine system (20 sources) Progestin, Progestin-containing Intrauterine Device levonorgestrel (MIRENA) 20 mcg/24 hours (7 yrs) 52 mg IUD 1 Each by INTRAUTERINE route one time only. Active Comment on above: 1 Each by INTRAUTERI NE route one time only. mupirocin 0.02 mg/mg topical ointment (1 source) RNA Synthetase Inhibitor Antibacterial Start: 2023 End: 2023 mupirocin (BACTROBAN) 2 % ointment Apply to affected area three times a day for 5 days. 30 g 0 06/07/2024 06/12/2024 Active nitrofurantoin, macrocrystals 25 mg / nitrofurantoin, monohydrate 75 mg oral capsule (6 sources) Nitrofuran Antibacterial Start: 2021 End: 2021 take 1 capsule by mouth twice daily nitrofurantoin monohydrate and macrocrystal (MACROBID) 100 mg capsule Take 1 capsule by mouth twice daily for 5 days. 10 capsule 0 03/04/2022 03/09/2022 Active Comment on above: Take 1 capsule by [facility] twice daily for 5 days. nystatin 100 unt/mg topical ointment (2 sources) Polyene Antifungal Start: 2021 End: 2021 nystatin (MYCOSTATIN) ointment Apply to affected area twice daily for 7 days. 30 g 2 08/16/2022 08/23/2022 Active Comment on above: Apply to affected ar ea twice daily for 7 days. predniSONE 20 mg oral tablet (3 sources) Start: 2024 End: 2024 take 1 tablet by mouth twice daily predniSONE (DELTASONE) 20 mg tablet Indications: Dysfunction of left eustachian tube Take 1 tablet by mouth two times a day for 5 days. 10 tablet 05/13/2025 05/18/2025 Active Start: 04-16-2024 End: 04-28-2024 predniSONE (DELTASONE) 10 mg tablet Indications: ETD (Eustachian tube dysfunction), left Take 4 tabs daily x 3 days, then 3 tabs x 3 days, 2 tabs x 3 days, then 1 tab x3 days with food. 30 tablet 0 04/16/2024 04/28/2024 Active 12 hr pseudoephedrine hydrochloride 120 mg extended release oral tablet (2 sources) alpha-Adrenergic Agonist Start: 05-13-2025 End: 05-23-2025 take 1 tablet by mouth every twelve hours Pseudoephedrine HCl (SUDAFED 12 HOUR) 120 mg TbER Indications: Dysfunction of left eustachian tube Take 1 tablet by mouth every 12 hours for 10 days. 20 tablet 05/13/2025 05/23/2025 Active sulfamethoxazole 800 mg / trimethoprim 160 mg oral tablet (4 sources) Dihydrofolate Reductase Inhibitor Antibacterial, Sulfonamide Antimicrobial Start: 06-13-2023 End: 06-16-2023 take 1 tablet by mouth twice daily at mealtime sulfamethoxazole-tr imethoprim (BACTRIM DS) 800-160 mg per tablet Indications: Dysuria Take 1 tablet by mouth twice daily for 3 days. Take with food 6 tablet 1 06/13/2023 06/16/2023 Active Start: 06-21-2022 End: 06-24-2022 take 1 tablet by mouth twice daily sulfamethoxazole-trimethoprim (BACTRIM D S) 800-160 mg per tablet Indications: Dysuria Take 1 tablet by mouth twice daily for 3 days. 6 tablet 0 06/21/2022 06/24/2022 Active Comment on above: Take 1 tablet by ryan twice daily for 3 days. Take 1 tablet by ryan twice daily for 3 days. Take with food Completed/Discontinued Medications Medication Drug Class(es) Dates Sig (Normalized) Sig (Original) [id number] 200 actuat albuterol 0.09 mg/actuat metered dose inhaler (2 sources) beta2-Adrenergic Agonist Start: 10-05-2022 End: 03-28-2023 take 2 puff(s) by inhalation every four hours as needed for wheezing albuterol HFA (VENTOLIN HFA) 90 mcg/actuation inhaler Inhale 2 Puffs as instructed every 4 hours as needed for wheezing/shortness of breath. 1 Each 0 10/05/2022 03/28/2023 Discontinued Comment on above: Inhale 2 Puffs as in structed every 4 hours as needed for wheezing/shortness of breath. Breast Pump (2 sources) Start: 01-02-2018 End: 01-02-2018 Breast Pump Discontinued 0 .Route .MEDSUPPLY January 02, 2018 1:00am January 02, 2018 1:13pm As directed Start: 12-19-2017 End: 04-05-2018 Breast Pump Discontinued 0 . Route .MEDSUPPLY December 19, 2017 1:00am April 05, 2018 4:36pm As directed codeine phosphate 2 mg/ml / guaiFENesin 20 mg/ml oral solution (1 source) Opioid Agonist Start: 10-05-2022 End: 10-12-2022 take 5 mL by mouth four times daily as needed for cough codeine-guaiFENesin (GUAIFENESIN AC) 10-100 mg/5 mL syrup Indications: Post-COVID chronic cough Take 5 mL by mouth four times daily as needed for cough for up to 7 days. 118 mL 0 10/05/2022 10/12/2022 Comment on above: Take 5 mL by mouth f our times daily as needed for cough for up to 7 days. fluticasone / salmeterol (2 sources) Corticosteroi d, beta2-Adrener gic Agonist Start: 10-05-2022 End: 03-28-2023 take 1 puff(s) by inhalation twice daily fluticasone-salmeterol (ADVAIR DISKUS) 250-50 mcg/dose inhaler Inhale 1 Puff as instructed twice daily. As directed 1 Each 0 10/05/2022 03/28/2023 Discontinued Start: 10-05-2022 take 1 puff(s) by in halation twice daily fluticasone-salmeterol (ADVAIR DISKUS) 250-50 mcg/dose inhaler Inhale 1 Puff as instructed twice daily. As directed 1 Each 0 10/05/2022 Active Comment on above: Inhale 1 Puff as ins tructed twice daily. As directed Prenat.Vits,Ld,Min- Iron-Folic ( Vitamin) tablet (1 source) Start: 12-06-19 End: 04-05-20 18 take 1 tablet by mouth once daily Prenat.Vits,Ld,Min- Iron-Folic ( Vitamin) tablet Discontinued 1 TABLET PO daily December 06, 2017 1:00am April 05, 2018 4:36pm 72 hr scopolamine 0.0139 mg/hr transdermal system (13 sources) Anticholinergic Start: 10-05-20 End: 03-28-20 scopolamine (TRANSDERM-SCOP) patch 1.5 mg/72 hr (delivers 1 mg over 3 days) Apply 1 Patch as directed every 72 hours. Apply patch to skin behind ear 4hrs prior to travel. 4 Patch 0 10/05/2022 03/28/2023 Discontinued Start: 02-25-2022 End: 08-08-2022 scopolamine (TRANSDERM-SCOP) patch 1.5 mg/72 hr (1 mg over 3 days) Indications: Motion Sickness Apply 1 Patch as directed every 72 hours. 3 Patch 0 02/25/2022 08/08/2022 Discontinued (Course of therapy completed) Comment on above: Apply 1 Patch as dir ected every 72 hours. Apply 1 Patch as dir ected every 72 hours. Apply patch to skin behind ear 4hrs prior to travel. Problems Problem Classification Problem Date Documented Da te Episodic/Chronic Contraceptive and procreative management (1 source) Contraception status; Translations: [Encounter for other general counseling and advice on contraception] 01-26-2024 Episodic Diabetes or abnormal glucose tolerance complicating ; childbirth; or the puerperium (1 source) Abnormal glucose level; Translations: [Abnormal glucose complicating ] 06-19-2018 Episodic Essential hypertension (1 source) Essential hypertension; Translations: [Essential (primary) hypertension] 08-13-2024 Chronic Genitourinary symptoms and ill-defined conditions (4 sources) Cloudy urine; Translations: [Unspecified abnormal findings in urine] Episodic Immunizations and screening for infectious disease (15 sources) Patient encounter status; Translations: [Encounter for screening for human papillomavirus (HPV)] Episodic Nonmalignant breast conditions (6 sources) Discharge from nipple; Translations: [Nipple discharge] Episodic Nonspecific chest pain (3 sources) Chest pain; Translations: [Chest pain, unspecified] Onset: 03-12-2024 03-06-2024 Episodic Open wounds of head; neck; and trunk (1 source) Complication of ear piercing; Translations: [Puncture wound without foreign body of right ear, initial encounter] 06-07-2024 Episodic Other complications of (1 source) Multigravida of advanced maternal age; Translations: [Supervision of elderly multigravida, unspecified trimester] 06-19-2018 Episodic Other female genital disorders (1 source) Vaginal discharge; Translations: [Other specified noninflammatory disorders of vagina] Episodic Other gastrointestinal disorders (1 source) Diarrhea; Translations: [Diarrhea, unspecified] 09-25-2021 Episodic Other lower respiratory disease (1 source) Cough; Translations: [Post-COVID chronic cough] Episodic Other nutritional; endocrine; and metabolic disorders (2 sources) Severe obesity; Translations: [Morbid (severe) obesity due to excess calories] Chronic Other nutritional; endocrine; and metabolic disorders (1 source) Unintentional weight gain; Translations: [Abnormal weight gain] Episodic Other and delivery including normal (1 source) Normal ; Translations: [Encounter for supervision of normal , unspecified, unspecified trimester] 06-19-2018 Episodic Other screening for suspected conditions (not mental disorders or infectious disease) (1 source) Cancer cervix screening status; Translations: [Encounter for screening for malignant neoplasm of cervix] 01-26-2024 Episodic Other skin disorders (1 source) Hirsutism; Translations: [Hirsutism] Episodic Other skin disorders (1 source) Loss of hair; Translations: [Nonscarring hair loss, unspecified] Episodic Other skin disorders (1 source) Skin lesion; Translations: [Disorder of the skin and subcutaneous tissue, unspecified] Episodic Other upper respiratory infections (2 sources) Acute maxillary sinusitis; Translations: [Acute maxillary sinusitis, unspecified] Onset: 05-01-2025 05-01-2025 Episodic Otitis media and related conditions (4 sources) Dysfunction of left eustachian tube; Translations: [Unspecified Eustachian tube disorder, left ear] Onset: 05-13-2025 04-16-2024 Episodic Residual codes; unclassified (1 source) Daytime somnolence; Translations: [Other hypersomnia] 08-13-2024 Chronic Results Test Name Value Interpretation Reference Range Facility [facility] 05-13-2025 CNOV Office Visit (UCWSTR) BEE CHURCH ([id number]) 1985 F Date Time Provider Department 05/13/25 6:15 PM ANDRES ORTEGA [facility] During your visit today, we recorded the following information about you: Temperature Pulse Respiration Blood pressure 97.9 degrees 92/minute 18/minute 128/82 Weight 134.8 kg Andres Ortega PA-C 05/13/2025 6:49 PM Signed This note was created using [email or web address]. Subjective Bee Church is a 40 year old female. Patient is a 40-year-old female who complains of left ear pain that she has been experiencing for the past 2 days. Patient was seen evaluated at this facility on 01 May 2025 at which time she was diagnosed with acute sinusitis and placed on Augmentin. Patient states that she did complete the Augmentin course as directed. Patient states that she was feeling improvement until development of left ear pain 2 days ago. Patient states that her right ear is asymptomatic and nontender. Patient reports that the left ear pain does radiate to her left jaw. Patient states that her sore throat and cough have resolved. Patient denies fever, chills or other illness symptoms. Ear Pain Review of Systems HENT: Positive for ear pain. All other systems reviewed and are negative. Objective BP 128/82 Pulse 92 Temp 36.6 ?C (97.9 ?F) Resp 18 Wt 134.8 kg (297 lb 2.9 oz) LMP (LMP Unknown) SpO2 96% BMI 51.36 kg/m? Physical Exam Vitals and nursing note reviewed. Constitutional: Appearance: Normal appearance. She is normal weight. HENT: Head: Normocephalic and atraumatic. Right Ear: Tympanic membrane, ear canal and external ear normal. Left Ear: Tympanic membrane, ear canal and external ear normal. Ears: Comments: Tympanic membranes are clear with excellent color and light reflex bilaterally. Left external canal is unremarkable and the patient experienced no tenderness with speculum insertion and otic exam. Left auricle is clear without erythema or edema. Exam of the right external canal is unremarkable. Nose: Nose normal. Mouth/Throat: Mouth: Mucous membranes are moist. Pharynx: Oropharynx is clear. Eyes: Extraocular Movements: Extraocular movements intact. Conjunctiva/sclera: Conjunctivae normal. Pupils: Pupils are equal, round, and reactive to light. Cardiovascular: Rate and Rhythm: Normal rate and regular rhythm. Pulses: Normal pulses. Heart sounds: Normal heart sounds. Pulmonary: Effort: Pulmonary effort is normal. Breath sounds: Normal breath sounds. Musculoskeletal: Cervical back: Normal range of motion and neck supple. Skin: General: Skin is warm and dry. Capillary Refill: Capillary refill takes less than 2 seconds. Neurological: General: No focal deficit present. Mental Status: She is alert and oriented to person, place, and time. Psychiatric: Mood and Affect: Mood normal. Behavior: Behavior normal. Thought Content: Thought content normal. Judgment: Judgment normal. Assessment and Plan Physical exam findings as noted above. Patient was provided with prescriptions for prednisone 20 mg and Sudafed 120 mg. Patient was assured that there is no evidence of bacterial infection at this time requiring further antibiotic treatment. Supportive care instructions were discussed and the patient verbalizes clear understanding of same. CLINICAL IMPRESSION: ETD Left Ear ASSESSMENT/PLAN: 1. Dysfunction of left eustachian tube - ICD9: 381.81, ICD10: H69.92 - PREDNISONE 20 MG TABLET - PSEUDOEPHEDRINE ER 120 MG TABLET,EXTENDED RELEASE MDM Risk of Complications, Morbidity, and/or Mortality Presenting problems: low Diagnostic procedures: low Management options: elio Ortega PA-C Allergies As of Date: 05/13/2025 Noted Allergy Reaction SEASONAL ALLERGIES 09/21/2021 14 - Other: See Comments SHELLFISH CONTAINING PRODUCTS 06/01/2018 11 - Vomiting Date Reviewed: 05/13/2025 Reviewed by: Caroline Robbins MA - Fully Assessed Reason for Visit: Ear Pain [817] Cmt: left ear, sinus drainage on left side x 2 days Primary Visit Diagnosis:Dysfunctio n of left eustachian tube [H69.92] Order(s):predniSONE (DELTASONE) 20 mg tabletTake 1 tablet by mouth two times a day for 5 days.Disp: 10 tabletRfl: 0 Pseudoephedrine HCl (SUDAFED 12 HOUR) 120 mg TbERTake 1 tablet by mouth every 12 hours for 10 days.Disp: 20 tabletRfl: 0 Prescriptions as of 05/13/2025 - predniSONE (DELTASONE) 20 mg tablet Take 1 tablet by mouth two times a day for 5 days. - Pseudoephedrine HCl (SUDAFED 12 HOUR) 120 mg TbER Take 1 tablet by mouth every 12 hours for 10 days. - cetirizine (ZYRTEC) 10 mg tablet Take 10 mg by mouth once daily. - benzonatate (TESSALON PERLE) 100 mg capsule Take 2 capsules by mouth three times a day as needed. - fluticasone (FLONASE ALLERGY RELIEF) 50 mcg/actuation nasal spray Use 1 spray in each nostril once daily. - fluticaso (more content not included)... Normal [facility] CNOVon 05-01-2025 CN Office Visit (UCWSTR) ДМИТРИЙBEE WILL Janie ([id number]) 1985 F Date Time Provider Department 05/01/25 3:15 PM ROYCE BLOOM [facility] During your visit today, we recorded the following information about you: Temperature Pulse Respiration Blood pressure 97 degrees 84/minute 20/minute 150/87 Weight 134 kg Royce Bloom APRN.[facility] 05/01/2025 4:16 PM Signed [facility] Subjective Bee Church is a 40 year old female. Patient presents with: Head Congestion: Chest congestion, headache,fullness in head, bilat ear pain, throat, tightness in chest with cough x 10 days HPI Review of Systems Constitutional: Negative for fatigue and fever. HENT: Positive for congestion, postnasal drip, rhinorrhea, sinus pressure, sinus pain and sore throat. Respiratory: Negative for cough and shortness of breath. Cardiovascular: Negative for chest pain. Gastrointestinal: Negative for abdominal pain, constipation and diarrhea. Objective BP 150/87 Pulse 84 Temp 36.1 ?C (97 ?F) Resp 20 Wt 134 kg (295 lb 6.7 oz) LMP (LMP Unknown) SpO2 99% BMI 51.06 kg/m? No past medical history on file. PAST SURGICAL HISTORY Procedure Laterality Date D AND C MIRENA IUD 02/2018 ALLERGIES Seasonal Allergies and Shellfish Containing Products MEDICATIONS cetirizine (ZYRTEC) 10 mg tablet Take 10 mg by mouth once daily. levonorgestrel (MIRENA) 20 mcg/24 hours (7 yrs) 52 mg IUD 1 Each by INTRAUTERINE route one time only. amoxicillin-clavulan ate potassium (AUGMENTIN) 875-125 mg per tablet Take 1 tablet by mouth two times a day for 5 days. benzonatate (TESSALON PERLE) 100 mg capsule Take 2 capsules by mouth three times a day as needed. fluticasone (FLONASE ALLERGY RELIEF) 50 mcg/actuation nasal spray Use 1 spray in each nostril once daily. fluticasone (FLONASE) 50 mcg/actuation nasal spray Use 2 Sprays in each nostril once daily. Rinse mouth after use. (Patient not taking: Reported on 05/01/2025) FAMILY HISTORY Problem Relation Age of Onset other (brain tumor) Mother other (heart murmur) Sister Breast Cancer Sister 43 with metastases to live and bonesr; not aggressive Drug abuse Sister other (lung ca) Sister Social History Tobacco Use Smoking status: Never Smokeless tobacco: Never Vaping Use Vaping status: Never Used Substance Use Topics Alcohol use: Not Currently Comment: socially Drug use: Never Physical Exam Vitals reviewed. HENT: Head: Salivary Glands: Right salivary gland is not tender. Left salivary gland is not tender. Right Ear: Ear canal and external ear normal. A middle ear effusion is present. Left Ear: Ear canal and external ear normal. A middle ear effusion is present. Nose: Congestion and rhinorrhea present. Right Sinus: Maxillary sinus tenderness present. Left Sinus: Maxillary sinus tenderness present. Mouth/Throat: Pharynx: Uvula midline. Postnasal drip present. No uvula swelling. Tonsils: No tonsillar exudate or tonsillar abscesses. Cardiovascular: Rate and Rhythm: Normal rate and regular rhythm. Heart sounds: Normal heart sounds, S1 normal and S2 normal. Pulmonary: Effort: Pulmonary effort is normal. Breath sounds: Normal breath sounds and air entry. Neurological: Mental Status: She is alert. {ASSESSMENT/PLAN: 1. Acute non-recurrent maxillary sinusitis - ICD9: 461.0, ICD10: J01.00 - Will begin treatment with Augmentin 875 mg PO BID for 5 days - Supportive care with plenty of fluids, rest, and analgesia prn. - Follow up in 3-5 days if symptoms persist or worsen. - Flonase - BENZONATATE 100 MG CAPSULE Royce Bloom APRN.BEVER[employer] HOST History and Record Review External record(s) reviewed: prior outpatient record. Findings from review of outpatient records: PRevious medical history Differential Diagnoses - sinusitis is more likely for the following reason(s): suggested by HANDP - Pneumonia is less likely for the following reason(s): HANDP not suggestive Disposition The patient was discharged. OTC Medications were advised: Flonase patient well-appearing nontoxic in no acute respiratory distress 40-year-old female presents with acute sinusitis patient symptoms were improving over the last 2 days worsening even with decongestants. Patient started on Augmentin, Flonase and tessalon. No concerns of pneumonia or acute cardiopulmonary process today Allergies As of Date: 05/01/2025 Noted Allergy Reaction SEASONAL ALLERGIES 09/21/2021 14 - Other: See Comments SHELLFISH CONTAINING PRODUCTS 06/01/2018 11 - Vomiting Date Reviewed: 05/01/2025 Reviewed by: Cara Mccrary LPN - Fully Assessed Reason for Visit: Head Congestion [234] Cmt: Chest congestion, headache,fullness in head, bilat ear pain, throat, tightness in chest with cough x 10 days Primary Visit Diagnosis:Acute non-recurrent maxillary sinusitis [J01.00] Order(s):amoxicillin -clavulana (more content not included)... Normal [facility] CNOVon 08-13-2024 CNOV Office Visit (INTMWS) BEE CHURCH ([id number]) 1985 F Date Time Provider Department 08/13/24 1:20 PM BRONSON MEDRANO [facility] During your visit today, we recorded the following information about you: Temperature Pulse Respiration Blood pressure 98.6 degrees 89/minute 16/minute 138/104 Weight Height 127.8 kg 1.62 m Bronson Medrano MD 09/22/2024 6:12 PM Signed This note was created using [email or web address]. Subjective Bee Church is a 39 year old female. HISTORY Bee Church is a 39 year old lady here for yearly exam and follow up appointment. She follows with [facility]. The patient is a 39-year-old female with a history of PCOS, presenting with concerns about ear pressure, weight management, and anxiety. The patient reports experiencing ear pressure and discomfort since March, described as a painful, twingy, poppy sensation, similar to the feeling of being on an airplane. This sensation has evolved into a constant tinny sound, which has improved but not completely resolved. She was evaluated in March and was advised that the symptoms would resolve on their own. She was prescribed a steroid, which she did not use due to concerns about potential side effects on blood pressure and blood glucose levels. She did use Flonase, which alleviated some symptoms. She denies current nasal congestion but reports occasional pressure changes related to weather and allergies. She expresses concern about an upcoming flight on Monday. The patient also reports a history of chest pain in February, for which she was evaluated in the ER. She was told the chest pain was likely due to stress and was advised to de-stress. She continues to experience occasional chest pain when feeling overwhelmed. The patient has a significant family history of cancer, including two sisters with breast cancer (one with metastasis to the liver and bones), a maternal aunt with breast cancer, and a grandmother with pancreatic cancer. She is concerned about her own risk and has been advised to update her medical records accordingly. The patient has been diagnosed with PCOS and reports symptoms of hair loss and hirsutism. She has been unable to lose weight despite regular aerobic exercise (30-45 minutes, 5-6 days a week) and a healthy diet. She has been trying to lose weight for three years without success. She reports a weight plateau at 280 lbs, despite losing 9 lbs over the summer. She follows a diet low in processed foods, high in fruits, vegetables, and whole grains, and avoids sugary drinks. She monitors her blood glucose levels and reports morning readings of 120 mg/dL, with postprandial readings never exceeding 140 mg/dL. She also monitors her blood pressure, which she reports as occasionally reaching 135/80 mmHg, but usually around 120/80 mmHg. The patient has been using a Mirena IUD for contraception and reports irregular spotting. She expresses a desire to have the IUD removed due to concerns about weight gain and anxiety, which she attributes to the IUD. She reports gaining 90 lbs in one year after the IUD was placed. The patient reports poor sleep quality, which she attributes to stress and anxiety, as well as her yib-wlma-mig daughter's separation anxiety at night. She denies symptoms of sleep apnea, such as snoring or observed apneas. She reports daytime fatigue and low energy levels. The patient reports high levels of stress and anxiety, which she attributes to her sister's cancer diagnosis and her own health concerns. She denies feelings of depression but reports feeling overwhelmed. She has not been on medication for anxiety or depression but is considering it. She reports drinking alcohol socially, with no more than 1-2 drinks per occasion, and denies ever consuming six or more drinks on one occasion. No past medical history on file. Current Outpatient Medications Medication Sig fluticasone (FLONASE) 50 mcg/actuation nasal spray Use 2 Sprays in each nostril once daily. Rinse mouth after use. levonorgestrel (MIRENA) 20 mcg/24 hours (7 yrs) 52 mg IUD 1 Each by INTRAUTERINE route one time only. No current facility-administere d medications for this visit. ALLERGIES Allergen Reactions Seasonal Allergies Other: See Comments Shellfish Containin* Vomiting FAMILY HISTORY Problem Relation Age of Onset other (brain tumor) Mother other (heart murmur) Sister Drug abuse Sister other (lung ca) Sister Social History Tobacco Use Smoking status: Never Smokeless tobacco: Never Vaping Use Vaping status: Never Used Substance Use Topics Alcohol use: Not Currently Comment: socially Drug use: Never Review of Systems Objective BP 138/104 Pulse 89 Temp 37 ?C (98.6 ?F) Resp 16 Ht 162 cm (5' 3.78) Wt 127.8 kg (281 lb 12 oz) LMP (LMP Unknown) SpO2 97% BMI 48.70 kg/m? Last 5 Encount (more content not included)... Normal [facility] 12 Lead EKGon 03-06-2024 12 Lead EKG [facility] Cardiovascular Services [address] [place] [address] 12 Lead EKG 03/06/24 1425 MR#: [id number] Acct: [id number] Name: BEE CHURCH Rep #: [id number] : 1985 39 From: Ramses Yanes MD Attending Dr: Status: DEP ER Ordering Dr: Tod Boyd MD Date: 03/06/24 Location: ED Sex: F C Admitted: Test Reason : CP Blood Pressure : / mmHG Vent. Rate : 075 BPM Atrial Rate : 075 BPM P-R Int : 150 ms QRS Dur : 086 ms QT Int : 390 ms P-R-T Axes : 021 070 013 degrees QTc Int : 435 ms Normal sinus rhythm Normal ECG Confirmed by Ramses Yanes ([id number]), editor farm journal NAILA FRANCE ([id number]) on 03/08/2024 7:18:07 AM Referred By: AR/TA Confirmed By:Ramses Yanes 03/08/24717 Ramses Yanes MD CC: Dr. Tod Boyd MD; Dr. Bronson Medrano MD Signed Normal [facility] Absolute lymphocyte countOrd ered By: Tod Boyd on 03-06-2024 Lymphocytes Auto (Unsp spec) [#/Vol] 3.17 10*3/uL 0.83-4.51 [facility] Automated lymphocyte count a s percentage of total leukocytesOrdered By: Tod Boyd on 03-06-2024 Lymphocytes/100 WBC Auto (Unsp spec) 21.6 % 19-41 [facility] Basic Metabolic Profile (BMP )on 03-06-2024 BUN/CRE 10.5 RATIO Normal 10- [facility] Comment on above: Order Comment: 1 Y Performed By: #### L 501.5425, L100.0100, L500.2500 #### [facility] [address] [place], [address] CA,Total 8.8 mg/dL Normal 8.5-10.1 [facility] Comment on above: Order Comment: 1 Y Performed By: #### L 501.5425, L100.0100, L500.2500 #### [facility] [address] [place], [address] Chloride [Moles/Vol] 108 mmol/L High 98-107 [facility] Comment on above: Order Comment: 1 Y Performed By: #### L 501.5425, L100.0100, L500.2500 #### [facility] [address] [place], [address] CO2 [Moles/Vol] 25.0 mmol/L Normal 21.0-32.0 [facility] Comment on above: Order Comment: 1 Y Performed By: #### L 501.5425, L100.0100, L500.2500 #### [facility] [address] [place], [address] Creatinine [Mass/Vol] 0.86 mg/dL Normal 0.55-1.[address] [facility] Comment on above: Order Comment: 1 Y Result Comment: The validity of the calculated GFR GFRAA in patients over 70 years has not been determined. Clinical correlation is essential. Performed By: #### L 501.5425, L100.0100, L500.2500 #### [facility] [address] [place], [address] ECRCL 114.23 ml/min Normal [facility] Comment on above: Order Comment: 1 Y Performed By: #### L 501.5425, L100.0100, L500.2500 #### [facility] [address] [place], [address] EST GFR - AA 94 mL/min Normal >60 [facility] Comment on above: Order Comment: 1 Y Result Comment: Afri can Singaporean GFR Calc Performed By: #### L 501.5425, L100.0100, L500.2500 #### [facility] [address] [place], [address] GAP 4 Low 5-15 [facility] Comment on above: Order Comment: 1 Y Performed By: #### L 501.5425, L100.0100, L500.2500 #### [facility] [address] [place], [address] GFR/1.73 sq M.predicted among non-blacks MDRD (S/P/Bld) [Vol rate/Area] 78 mL/min/{1.73_m2} Normal >60 [facility] Comment on above: Order Comment: 1 Y Result Comment: Non- GFR Calc Performed By: #### L 501.5425, L100.0100, L500.2500 #### [facility] [address] [place], [address] Glucose [Mass/Vol] 129 mg/dL High 74-106 [facility] Comment on above: Order Comment: 1 Y Result Comment: Fast ing Glucose result greater than or equal to 126 mg/dL suggests DIABETES MELLITUS per A.D.A. criteria. Performed By: #### L 501.5425, L100.0100, L500.2500 #### [facility] [address] [place], [address] Potassium [Moles/Vol] 3.7 mmol/L Normal 3.5-5.[address] [facility] Comment on above: Order Comment: 1 Y Performed By: #### L 501.5425, L100.0100, L500.2500 #### [facility] [address] [place], [address] Sodium [Moles/Vol] 137 mmol/L Normal 136-145 [facility] Comment on above: Order Comment: 1 Y Performed By: #### L 501.5425, L100.0100, L500.2500 #### [facility] [address] [place], [address] Urea nitrogen [Mass/Vol] 9 mg/dL Normal 7-18 [facility] Comment on above: Order Comment: 1 Y Performed By: #### L 501.5425, L100.0100, L500.2500 #### [facility] [address] [place], [place], [address] Basophil percentageOrdered B y: Tod Boyd on 03-06-2024 Basophils/100 WBC (Bld) 0.7 % 0-1 [facility] Chloride [Moles/Vol] 108 mmol/L 98-107 [facility] Eosinophils/100 WBC (Bld) 2.3 % 0-5 [facility] Glucose [Mass/Vol] 129 mg/dL 74-106 [facility] Comment on above: Fasting Glucose resu lt greater than or equal to 126 mg/dL suggests DIABETES MELLITUS per A.D.A. criteria. Hemoglobin (Bld) [Mass/Vol] 16.2 g/dL 12.0-15.0 [facility] Monocytes/100 WBC (Bld) 5.1 % 0-10 [facility] Neutrophils (Bld) [#/Vol] 10.2 10*3/uL 2.0-7.7 [facility] Neutrophils/100 WBC (Bld) 69.3 % 47-70 [facility] Potassium [Moles/Vol] 3.7 mmol/L 3.5-5.[address] [facility] Sodium [Moles/Vol] 137 mmol/L 136-145 [facility] WBC (Bld) [#/Vol] 14.7 10*3/uL 4.4-11.0 [facility] CBC W/Diff, Automatedon 02-25 Absolute Lymph 3.17 X10 3/uL Normal 0.83-4.51 [facility] Comment on above: Performed By: #### L 501.5425, L100.0100, L500.2500 #### [facility] [address] [place], [address] Absolute Neut 10.2 X10 3/uL High 2.0-7.7 [facility] Comment on above: Performed By: #### L 501.5425, L100.0100, L500.2500 #### [facility] [address] [place], [address] Basophils/100 WBC (Bld) 0.7 % Normal 0-1 [facility] Comment on above: Performed By: #### L 501.5425, L100.0100, L500.2500 #### [facility] [address] [place], [address] Eosinophils/100 WBC (Bld) 2.3 % Normal 0-5 [facility] Comment on above: Performed By: #### L 501.5425, L100.0100, L500.2500 #### [facility] [address] [place], [address] Erythrocyte distribution width (RBC) [Ratio] 12.5 % Normal 11.6-14.6 [facility] Comment on above: Performed By: #### L 501.5425, L100.0100, L500.2500 #### [facility] [address] [place], [address] Hematocrit (Bld) [Volume fraction] 47.7 % High 37-47 [facility] Comment on above: Performed By: #### L 501.5425, L100.0100, L500.2500 #### [facility] [address] [place], [address] Hemoglobin (Bld) [Mass/Vol] 16.2 g/dL High 12.0-15.0 [facility] Comment on above: Performed By: #### L 501.5425, L100.0100, L500.2500 #### [facility] [address] [place], [address] IG% 1.000 High 0.0-0.9 [facility] Comment on above: Result Comment: IG% - Immature Granulocytes (promyelocytes, myelocytes and metamyelocytes) > 1% indicates that a LEFT SHIFT is Present. Performed By: #### L 501.5425, L100.0100, L500.2500 #### [facility] [address] [place], [address] Lymphocytes/100 WBC (Bld) 21.6 % Normal 19-41 [facility] Comment on above: Performed By: #### L 501.5425, L100.0100, L500.2500 #### [facility] [address] [place], [address] MCH (RBC) [Entitic mass] 30.6 pg Normal 27.0-32.0 [facility] Comment on above: Performed By: #### L 501.5425, L100.0100, L500.2500 #### [facility] [address] [place], [address] MCHC (RBC) [Mass/Vol] 34.0 g/dL Normal 32-[address] [facility] Comment on above: Performed By: #### L 501.5425, L100.0100, L500.2500 #### [facility] [address] [place], [address] MCV (RBC) [Entitic vol] 90.2 fL Normal 81-99 [facility] Comment on above: Performed By: #### L 501.5425, L100.0100, L500.2500 #### [facility] [address] [place], [address] Monocytes/100 WBC (Bld) 5.1 % Normal 0-10 [facility] Comment on above: Performed By: #### L 501.5425, L100.0100, L500.2500 #### [facility] [address] [place], [address] Neutrophils/100 WBC (Bld) 69.3 % Normal 47-70 [facility] Comment on above: Performed By: #### L 501.5425, L100.0100, L500.2500 #### [facility] [address] [place], [address] Nucleated RBC (Bld) [#/Vol] 0 10*3/uL Normal 0-5 [facility] Comment on above: Performed By: #### L 501.5425, L100.0100, L500.2500 #### [facility] [address] [place], [address] Platelet mean volume (Bld) [Entitic vol] 10.3 fL Normal 6.2-12.0 [facility] Comment on above: Performed By: #### L 501.5425, L100.0100, L500.2500 #### [facility] [address] [place], [address] Platelets (Bld) [#/Vol] 280 10*3/uL Normal 150-450 [facility] Comment on above: Performed By: #### L 501.5425, L100.0100, L500.2500 #### [facility] [address] [place], [address] RBC (Bld) [#/Vol] 5.29 10*6/uL Normal 4.2-5.4 [facility] Comment on above: Performed By: #### L 501.5425, L100.0100, L500.2500 #### [facility] [address] [place], [address] RDW SD 40.8 fl Normal 35.1-43.9 [facility] Comment on above: Performed By: #### L 501.5425, L100.0100, L500.2500 #### [facility] [address] [place], [place], [address] WBC (Bld) [#/Vol] 14.7 10*3/uL High 4.4-11.0 [facility] Comment on above: Performed By: #### L 501.5425, L100.0100, L500.2500 #### [facility] [address] [place], [place], [address] Chest 1 View (Portable)on Chest 1 View (Portable) [facility] Imaging Services [address] [place] [address] Chest 1 View (Portable) MR#: [id number] Acct: [id number] Name: BEE CHURCH Rep #: [id number] : 1985 F 39 From: Carlos thomas MD PCP: Dr. Bronson Medrano MD Status: [place] ER Study: Chest 1 View (Portable) Date of Exam: 03/06/24 Exam# [id number] Ordering Dr: Tod Boyd MD [id number] STUDY: X-RAY CHEST REASON FOR EXAM: Female, 39 years old. Chest pain TECHNIQUE: Single AP portable view of the chest. COMPARISON: None. FINDINGS: EKG electrodes are seen. The lungs are clear and expanded. There is no demonstrated pleural abnormality. Normal size heart. Normal mediastinum and joshua. Normal visualized pulmonary arteries. Normal visualized aortic arch and descending thoracic aorta. Normal visualized thoracic spine. Normal visualized ribs, clavicles, and shoulders. There is no demonstrated abnormality of the visualized soft tissue structures of the upper abdomen. RAD/Chest 1 View (Portable) IMPRESSION: Normal x-ray examination of the chest. Electronically Signed: Carlos Stahl MD at 15:40 EDT , CC: Dr. Tod Boyd MD; Dr. Bronson Medrano MD [employer]: Signed Normal [facility] D-Dimer Quantitative (DVT/PE )on 03-06-2024 D-DIMER QUANT 0.32 FEU/ug/m Normal 0.27-0.49 [facility] Comment on above: Result Comment: NORM AL D-Dimer level (<0.50) indicates no DVT or PE. Performed By: #### L 300.8000 #### [facility] [address] [place], [address] Determination of erythrocyte mean corpuscular volume (MCV)Ordered By: Tod Boyd on 03-06-2024 MCV (RBC) [Entitic vol] 90.2 fL 81-99 [facility] Emergency Department Summary on 03-06-2024 Emergency Department Summary [facility] Medical Records Department [address] [place] [address] Emergency Department Summary 03/06/24 MR#: [id number] Acct: [id number] Name: BEE CHURCH Rep #: [id number] : 1985 39 From: Tod Boyd MD PCP: Dr. Bronson Medrano MD Status:REG ER Location: ED HPI History of Present Illness Chief Complaint: Chest Pain Narrative Narrative: 39-year-old female who denies significant past medical history presents with left-sided chest pain that she has had since yesterday evening around 10 PM. She does state that she believes she has a diagnosis of irritable bowel syndrome, and may have had indigestion previously, but it never affects her chest. She states her pain which is hard for her to describe, is on the left side underneath her breast. She denies any fevers or chills, no cough, no nausea or vomiting, no diaphoresis. Pain is not pleuritic. No real exacerbating or alleviating factors. She denies any leg swelling. Of note, she does have a Mirena in place is a form of control. She states that lasted for few hours yesterday evening, then went away, and then when she woke up this morning, it had returned. Currently, she states she does not really feel any pain or pressure. [facility] Medical History (Updated 03/06/24 @ 17:57 by Tod Boyd MD) Miscarriage Home Medications hydrocodone-acetamin ophen 5-325mg 5mg-325mg 1 tab PO Q6H PRN PRN Pain 5 days #15 tabs 06/14/18 [Rx Last Taken Unknown] Allergy/AdvReac Type Severity Reaction Status Date / Time shellfish derived Allergy Vomiting Verified 03/06/24 14:19 Family History Grandmother Diabetes Mother Cancer Brain Tumor Surgical History (Updated 03/06/24 @ 15:17 by Essie Jc) History of cholecystectomy Social History Smoking Status: Never smoker alcohol intake: never substance use type: does not use caffeine: Yes frequency: 3-4 times per week seatbelt use: always do you feel safe at home: Yes additional social history: [email or web address] ROS ROS ED ROS Narrative Constitutional: No fever, no chills. HEENT: No sore throat. No neck pain. No loss of vision. No rhinorrhea. Cardiovascular: Left-sided chest pain. No palpitations. No pedal edema. Respiratory: No cough, no shortness of breath. Abdominal: No abdominal pain. No nausea. No vomiting. Genitourinary: No dysuria. No hematuria. Musculoskeletal: No myalgias. No arthralgias. Neurologic: No headaches. No dizziness. No lightheadedness. Skin: No rash. No change in color. Psychiatric: No depression. No anxiety. EXAM Physical Exam Narrative Exam Narrative: Afebrile. Vital signs noted. HEENT: Normocephalic. Atraumatic. PERRL, EOMI. Neck soft and supple. No point tenderness or step off. Cardiovascular: Regular rate and rhythm. No murmurs, rubs, or gallops appreciated. Respiratory: No tachypnea. Lungs clear to auscultation bilaterally. Gastrointestinal: Abdomen soft, nontender, with normoactive bowel sounds. No rebound or guarding. Neurological: Awake. Alert. Nonfocal, nonlateralizing. Skin: No rash. Normal color. No pallor. Musculoskeletal: No pedal edema. Full range of motion extremities. Const Vital Signs: 03/06/24 14:17 03/06/24 15:15 03/06/24 15:15 Temperature 96.9 F L Temperature Source Temporal Pulse Rate 82 Respiratory Rate 18 Respiratory Pattern Normal Blood Pressure 152/94 H Blood Pressure Mean 113 Pulse Ox 96 Oxygen Delivery Method Room Air Room Air 03/06/24 15:17 03/06/24 16:00 03/06/24 17:00 Temperature Temperature Source Pulse Rate 77 81 79 Respiratory Rate 14 17 16 Respiratory Pattern Blood Pressure 166/69 H 154/85 H 138/84 H Blood Pressure Mean 101 104 102 Pulse Ox 97 94 98 Oxygen Delivery Method Room Air Room Air 03/06/24 18:00 03/06/24 18:00 Temperature 98.7 F Temperature Source Pulse Rate 79 79 Respiratory Rate 6 L 16 Respiratory Pattern Blood Pressure 128/80 H 128/80 H Blood Pressure Mean 96 96 Pulse Ox 97 97 Oxygen Delivery Method Room Air Heart Score History: Slightly/Non-Suspici ous ECG: Normal Age: Risk Factors: No Risk Factors Score: 0 MDM MDM MDM Narrative Medical decision making narrative: In the differential diagnosis is ACS versus pneumonia versus pneumothorax versus pulmonary embolism. History and physical does not support pneumonia as she is not febrile. Additionally, does not support pneumothorax. EKG was obtained and interpreted by myself independently as normal sinus rhythm at 75 bpm without ectopy or acute ST changes. No STEMI. I reviewed her laboratory work and she has an elevated white count of 14.7 which I think is nonspecific, but ap (more content not included)... Normal [facility] Erythrocyte distribution wid th ratioOrdered By: Tod Boyd on 03-06-2024 Erythrocyte distribution width (RBC) [Ratio] 12.5 % 11.6-14.6 [facility] Erythrocyte distribution wid th standard deviationOrdered By: Tod Boyd on 03-06-2024 Erythrocyte distribution width (RBC) [Entitic vol] 40.8 fL 35.1-43.9 [facility] Hematocrit Auto (Bld) [Volum e fraction]Ordered By: Tod Boyd on 03-06-2024 Hematocrit (Bld) [Volume fraction] 47.7 % 37-47 [facility] Immature granulocytes/100 WB C Auto (Bld)Ordered By: Tod Boyd on 03-06-2024 Immature granulocytes/100 WBC (Bld) 1.000 % 0.0-0.9 [facility] Comment on above: IG% - Immature Granu locytes (promyelocytes, myelocytes and metamyelocytes) > 1% indicates that a LEFT SHIFT is Present. L501.4020on 03-06-2024 TROPONIN-I HS 13 pg/mL Normal 3.0-54.0 [facility] Comment on above: Result Comment: Grace warner Note: New Test Units and Gender Specific Reference Ranges. For more information see Policy Stat Procedure [place] High Sensitivity Troponin (TNIH) and attachments. Performed By: #### L 501.4020 #### [facility] [address] [facility] [place], [place], [address] L501.5425on 03-06-2024 TROPONIN-I HS 14 pg/mL Normal 3.0-54.0 [facility] Comment on above: Order Comment: 1 Y Result Comment: Grace warner Note: New Test Units and Gender Specific Reference Ranges. For more information see Policy Stat Procedure [place] High Sensitivity Troponin (TNIH) and attachments. Performed By: #### L 501.5425, L100.0100, L500.2500 #### [facility] [address] [place], [place], [address] Laboratory - Chemistry and C hemistry - challengeOrdered By: Tod Boyd on 03-06-2024 CO2 [Moles/Vol] 25.0 mmol/L 21.0-32.0 [facility] Urea nitrogen/Creatinine [Mass ratio] 10.5 mg/mg 10-20 [facility] - Hematology and Cell countsOrdered By: Tod Boyd on 03-06-2024 MCH (RBC) [Entitic mass] 30.6 pg 27.0-32.0 [facility] MCHC (RBC) [Mass/Vol] 34.0 g/dL 32-[address] [facility] Nucleated RBC/100 WBC (Bld) [Ratio] 0 % 0-5 [facility] Platelet mean volume (Bld) [Entitic vol] 10.3 fL 6.2-12.0 [facility] Platelets (Bld) [#/Vol] 280 10*3/uL 150-450 [facility] No Panel InformationOrdered By: Tod Boyd on 03-06-2024 Troponin I High Sensitivity 13 pg/mL 3.0-54.0 [facility] Comment on above: Please Note: New [place] t Units and Gender Specific Reference Ranges. For more information see Policy Stat Procedure [place] High Sensitivity Troponin (TNIH) and attachments. D-Dimer Quantitative (PE/DVT) 0.32 FEU/ug/m 0.27-0.49 [facility] Comment on above: NORMAL D-Dimer level (<0.50) indicates no DVT or PE. Estimated Creatinine Clearance Calc 114.23 ml/min [facility] Estimated GFR (MDRD) Amer 94 mL/min >60 [facility] Comment on above: GFR Calc Estimated GFR (MDRD) Non-Af Amer 78 mL/min >60 [facility] Comment on above: Non- GFR Calc RBC Auto (Bld) [#/Vol]Ordere d By: Tod Boyd on 03-06-2024 RBC (Bld) [#/Vol] 5.29 10*6/uL 4.2-5.4 [facility] Serum or plasma calcium eddie urement (mass/volume)Ordered By: Tod Boyd on 03-06-2024 Calcium [Mass/Vol] 8.8 mg/dL 8.5-10.1 [facility] Serum or plasma creatinine m easurement (mass/volume)Ordered By: Tod Boyd on 03-06-2024 Creatinine [Mass/Vol] 0.86 mg/dL 0.55-1.[address] [facility] Comment on above: The validity of the calculated GFR & GFRAA in patients over 70 years has not been determined. Clinical correlation is essential. Serum or plasma urea nitroge n measurement (mass/volume)Ordered By: Tod Boyd on 03-06-2024 Urea nitrogen [Mass/Vol] 9 mg/dL 7-18 [facility] Thin prep Papanicolaou smear with manual screeningOrdered By: Tod Boyd on 03-06-2024 Thin prep Papanicolaou smear with manual screening 4 5-15 [facility] UA DIP, URINE (POC)on 2022 BILIRUBIN UA (POCT) Negative Negative [facility] CLARITY UA (POCT) Cloudy [facility] COLOR UA (POCT) Yellow [facility] GLUCOSE UA (POCT) Negative Negative mg/dL [facility] HEMOGLOBIN/BLOOD UA (POCT) Large Abnormal Negative [facility] KETONE UA (POCT) Negative Negative mg/dL [facility] LEUKOCYTES UA (POCT) Large Abnormal Negative [facility] NITRITE UA (POCT) Negative Negative [facility] PH UA (POCT) 7.0 4.5 - 8.0 [facility] Protein Ql (U) Negative Negative mg/dL [facility] SPECIFIC GRAVITY UA (POCT) 1.010 1.005 - 1.030 [facility] UROBILINOGEN UA (POCT) 0.2 E.U./dL Normal E.U./ dL [facility] DIANE DIAG W LUISITO BILATon 07-29 [facility] No Panel Informationon 08-16 [facility] HCG QUAL UR B/Oon 08-08-2022 status Negative neg - pos [facility] Quality Check Yes [facility] UA DIP, URINE (POC)on 2021 BILIRUBIN UA (POCT) Negative Negative [facility] CLARITY UA (POCT) Clear [facility] COLOR UA (POCT) Yellow [facility] GLUCOSE UA (POCT) Negative Negative mg/dL [facility] HEMOGLOBIN/BLOOD UA (POCT) Moderate Abnormal Negative [facility] KETONE UA (POCT) Negative Negative mg/dL [facility] LEUKOCYTES UA (POCT) Trace Abnormal Negative [facility] NITRITE UA (POCT) Negative Negative [facility] PH UA (POCT) 7.0 4.5 - 8.0 [facility] Protein Ql (U) Negative Negative mg/dL [facility] SPECIFIC GRAVITY UA (POCT) 1.010 1.005 - 1.030 [facility] UROBILINOGEN UA (POCT) 0.2 E.U./dL Normal E.U./ dL [facility] UA DIP, URINE (POC)on 2021 BILIRUBIN UA (POCT) Negative Negative [facility] CLARITY UA (POCT) Slightly Cloudy Cl [facility] COLOR UA (POCT) Yellow [facility] GLUCOSE UA (POCT) Negative Negative mg/dL [facility] HEMOGLOBIN/BLOOD UA (POCT) Small Abnormal Negative [facility] KETONE UA (POCT) Negative Negative mg/dL [facility] LEUKOCYTES UA (POCT) Small Abnormal Negative [facility] NITRITE UA (POCT) Negative Negative [facility] PH UA (POCT) 6.5 4.5 - 8.0 [facility] Protein Ql (U) Negative Negative mg/dL [facility] SPECIFIC GRAVITY UA (POCT) 1.010 1.005 - 1.030 [facility] UROBILINOGEN UA (POCT) 0.2 E.U./dL Normal E.U./ dL [facility] Vital Signs Date Time Vital Sign Value Performing Clinician Facility 05-13-2025 18:14-0400 Body mass index (BMI) [Ratio] 51.36 kg/m2 Andres Clutter PA-C Work Phone: [facility] 05-13-2025 18:14-0400 Body temperature 97.9 [degF] Andres Clutter PA-C Work Phone: [facility] 05-13-2025 18:14-0400 Body weight 134.8 kg Andres Clutter PA-C Work Phone: [facility] 05-13-2025 18:14-0400 Diastolic blood pressure 82 mm[Hg] Andres Clutter PA-C Work Phone: [facility] 05-13-2025 18:14-0400 Heart rate 92 /min Andres Clutter PA-C Work Phone: [facility] 05-13-2025 18:14-0400 Respiratory rate 18 /min Andres Clutter PA-C Work Phone: [facility] 05-13-2025 18:14-0400 SaO2% (BldA) [Mass fraction] 96 % Andres Clutter PA-C Work Phone: [facility] 05-13-2025 18:14-0400 Systolic blood pressure 128 mm[Hg] Andres Clutter [place] Work Phone: [facility] 05-01-2025 15:09-0400 Body mass index (BMI) [Ratio] 51.06 kg/m2 Royce Swank [employer] Work Phone: [facility] 05-01-2025 15:09-0400 Body temperature 97 [degF] Royce Swank [employer] H[employer] Work Phone: [facility] 05-01-2025 15:09-0400 Body weight 134 kg Royce Swank [employer] H[employer] Work Phone: [facility] 05-01-2025 15:09-0400 Diastolic blood pressure 87 mm[Hg] Royce Swank [employer]EVER[employer] H[employer] Work Phone: [facility] Comment on above: checked BP x 2 05-01-2025 15:09-0400 Heart rate 84 /min Royce Swank [employer] H[employer] Work Phone: [facility] 05-01-2025 15:09-0400 Respiratory rate 20 /min Royce Swank [employer]EVER[employer] HOST Work Phone: [facility] 05-01-2025 15:09-0400 SaO2% (BldA) [Mass fraction] 99 % Royce Swank [employer]EVER[employer] HOST Work Phone: [facility] 05-01-2025 15:09-0400 Systolic blood pressure 150 mm[Hg] Royce Swank [employer]EVER[employer] HOST Work Phone: [facility] Comment on above: checked BP x 2 08-13-2024 13:37-0400 Body height 162 cm Bronson Medrano MD Work Phone: [facility] 08-13-2024 13:37-0400 Body mass index (BMI) [Ratio] 48.7 kg/m2 Bronson Medrano MD Work Phone: [facility] 08-13-2024 13:37-0400 Body temperature 98.6 [degF] Bronson Medrano MD Work Phone: [facility] 08-13-2024 13:37-0400 Body weight 127.8 kg Bronson Medrano MD Work Phone: [facility] 08-13-2024 13:37-0400 Diastolic blood pressure 104 mm[Hg] Bronson Medrano MD Work Phone: [facility] 08-13-2024 13:37-0400 Heart rate 89 /min Bronson Medrano MD Work Phone: [facility] 08-13-2024 13:37-0400 Respiratory rate 16 /min Bronson Medrano MD Work Phone: [facility] 08-13-2024 13:37-0400 SaO2% (BldA) [Mass fraction] 97 % Bronson Medrano MD Work Phone: [facility] 08-13-2024 13:37-0400 Systolic blood pressure 138 mm[Hg] Bronson Medrano MD Work Phone: [facility] 04-16-2024 11:43-0400 Body mass index (BMI) [Ratio] 50.47 kg/m2 Maurice Dodge [employer] HOST Work Phone: [facility] 04-16-2024 11:43-0400 Body temperature 98.01 [degF] Maurice Dodge [employer]EVER[employer] HOST Work Phone: [facility] 04-16-2024 11:43-0400 Body weight 131.3 kg Maurice Dodge [employer] HOST Work Phone: [facility] 04-16-2024 11:43-0400 Diastolic blood pressure 80 mm[Hg] Maurice Dar [employer] H[employer] Work Phone: [facility] 04-16-2024 11:43-0400 Heart rate 98 /min Maurice Dar [employer] HOST Work Phone: [facility] 04-16-2024 11:43-0400 Respiratory rate 16 /min Maurice Dodge [employer]EVER[employer] HOST Work Phone: [facility] 04-16-2024 11:43-0400 SaO2% (BldA) [Mass fraction] 98 % Maurice Dodge [employer] H[employer] Work Phone: [facility] 04-16-2024 11:43-0400 Systolic blood pressure 132 mm[Hg] Maurice Dar [employer] HOST Work Phone: [facility] 03-06-2024 18:00-0400 Body temperature 98.7 [degF] [facility] 03-06-2024 18:00-0400 Diastolic blood pressure 80 mm[Hg] [facility] 03-06-2024 18:00-0400 Heart rate 79 /min [facility] 03-06-2024 18:00-0400 Respiratory rate 16 /min [facility] 03-06-2024 18:00-0400 SaO2% (BldA) [Mass fraction] 97 % [facility] 03-06-2024 18:00-0400 Systolic blood pressure 128 mm[Hg] [facility] 03-06-2024 14:17-0400 Body height 160.02 cm [facility] 03-06-2024 14:17-0400 Body mass index (BMI) [Ratio] 51.3 kg/m2 [facility] 03-06-2024 14:17-0400 Body weight 131.54 kg [facility] 01-26-2024 14:08-0500 Body height 161.[address] MD Work Phone: [facility] 01-26-2024 14:08-0500 Body weight 131.[address] MD Work Phone: [facility] 01-26-2024 14:08-0500 Diastolic blood pressure 104 mm[Hg] Johnson Lane MD Work Phone: [facility] 01-26-2024 14:08-0500 Systolic blood pressure 154 mm[Hg] Johnson Lane MD Work Phone: [facility] 06-13-2023 10:13-0400 Body weight 129.28 kg Yasminsha Syed [employer]OCKKEE[employer] Work Phone: [facility] 06-13-2023 10:13-0400 Diastolic blood pressure 88 mm[Hg] Yasmin Syed [employer]OCKKEEPER Work Phone: [facility] 06-13-2023 10:13-0400 Heart rate 80 /min Yasmin Syed [employer]OCKKEEPER Work Phone: [facility] 06-13-2023 10:13-0400 Respiratory rate 16 /min Yasmin Syed [employer]OCKKEEPER Work Phone: [facility] 06-13-2023 10:13-0400 Systolic blood pressure 138 mm[Hg] Yasmin Syed [employer]OCKKEEPER Work Phone: [facility] 03-28-2023 10:22-0400 Body weight 130.[address] MD Work Phone: [facility] 03-28-2023 10:22-0400 Diastolic blood pressure 90 mm[Hg] Johnson Lane MD Work Phone: [facility] 03-28-2023 10:22-0400 Systolic blood pressure 146 mm[Hg] Johnson Lane MD Work Phone: [facility] 10-05-2022 17:01-0500 Body height 161.5 cm Bronson Medrano MD Work Phone: [facility] 10-05-2022 17:01-0500 Body weight 126.55 kg Bronson Medrano MD Work Phone: [facility] 10-05-2022 17:01-0500 Diastolic blood pressure 86 mm[Hg] Bronson Medrano MD Work Phone: [facility] 10-05-2022 17:01-0500 Heart rate 93 /min Bronson Medrano MD Work Phone: [facility] 10-05-2022 17:01-0500 SaO2% (BldA) [Mass fraction] 97 % Bronson Medrano MD Work Phone: [facility] 10-05-2022 17:01-0500 Systolic blood pressure 146 mm[Hg] Bronson Medrano MD Work Phone: [facility] 08-16-2022 14:37-0400 Body height 161.[address] MD Work Phone: [facility] 08-16-2022 14:37-0400 Body weight 127.[address] MD Work Phone: [facility] 08-16-2022 14:37-0400 Diastolic blood pressure 92 mm[Hg] Johnson Lane MD Work Phone: [facility] 08-16-2022 14:37-0400 Systolic blood pressure 144 mm[Hg] Johnson Lane MD Work Phone: [facility] 08-08-2022 10:25-0400 Body temperature 98.8 [degF] Marne Podlogar [employer] HOST Work Phone: [facility] 08-08-2022 10:25-0400 Body weight 128.46 kg Maren Podlogar [employer] H[employer] Work Phone: [facility] 08-08-2022 10:25-0400 Diastolic blood pressure 96 mm[Hg] Maren Podlogar [employer] H[employer] Work Phone: [facility] 08-08-2022 10:25-0400 Heart rate 102 /min Amren Podlogar [employer] H[employer] Work Phone: [facility] 08-08-2022 10:25-0400 Respiratory rate 18 /min Maren Podlogar [employer] H[employer] Work Phone: [facility] 08-08-2022 10:25-0400 SaO2% (BldA) [Mass fraction] 97 % Maren Podlogar [employer] H[employer] Work Phone: [facility] 08-08-2022 10:25-0400 Systolic blood pressure 138 mm[Hg] Maren Podlogar [employer] H[employer] Work Phone: [facility] 06-21-2022 16:09-0400 Body temperature 98.6 [degF] Napoleon Johnson MD Work Phone: [facility] 06-21-2022 16:09-0400 Body weight 129.73 kg Napoleon Johnson MD Work Phone: [facility] 06-21-2022 16:09-0400 Diastolic blood pressure 80 mm[Hg] Napoleon Johnson MD Work Phone: [facility] 06-21-2022 16:09-0400 Heart rate 93 /min Napoleon Johnson MD Work Phone: [facility] 06-21-2022 16:09-0400 Respiratory rate 16 /min Napoleon Johnson MD Work Phone: [facility] 06-21-2022 16:09-0400 SaO2% (BldA) [Mass fraction] 97 % Napoleon Johnson MD Work Phone: [facility] 06-21-2022 16:09-0400 Systolic blood pressure 128 mm[Hg] Napoleon Johnson MD Work Phone: [facility] 03-04-2022 16:22-0400 Body temperature 97.59 [degF] Estefani Luiza [employer] H[employer] Work Phone: [facility] 03-04-2022 16:22-0400 Body weight 134.63 kg Estefani Luiza [employer] H[employer] Work Phone: [facility] 03-04-2022 16:22-0400 Diastolic blood pressure 88 mm[Hg] Estefani Luiza [employer] H[employer] Work Phone: [facility] 03-04-2022 16:22-0400 Heart rate 99 /min Estefani Luiza [employer] H[employer] Work Phone: [facility] 03-04-2022 16:22-0400 Respiratory rate 20 /min Estefani Luiza [employer] HOST Work Phone: [facility] 03-04-2022 16:22-0400 SaO2% (BldA) [Mass fraction] 99 % Estefani Luiza [employer] HOST Work Phone: [facility] 04-08-2022 16:22-0400 Systolic blood pressure 124 mm[Hg] Estefani Jarrett [employer] H[employer] Work Phone: [facility] Encounters Encounter Date Encounter Type Care Provider Facility Start: 05-15-2025 End: 05-16-2025 ambulatory Bronson Medrano MD Work Phone: [facility] [place] Comment on above: Steroid affecting bl ood sugar Start: 05-13-2025 End: 05-13-2025 Office outpatient visit 15 minutes Andres Ortega PA-C Work Phone: [facility] Comment on above: Dysfunction of left eustachian tube (Primary Dx) Start: 05-13-2025 End: 05-13-2025 ambulatory BRONSON MEDRANO Facility:[facility] Start: 05-01-2025 End: 05-01-2025 Patient encounter procedure Royce Bloom [employer] H[employer] Work Phone: [facility] Comment on above: Acute non-recurrent maxillary sinusitis (Primary Dx) Start: 05-01-2025 End: 05-01-2025 ambulatory BRONSON MEDRANO Facility:[facility] Start: 01-09-2025 End: 01-09-2025 E-mail encounter from caregiver Kassie Casillas MD Work Phone: OB/Gynecology Start: 01-09-2025 End: 01-09-2025 Patient encounter procedure Kassie Casillas MD Work Phone: OB/Gynecology Comment on above: Dr. Casillas Appoint ment 01/14/2025 Start: 08-13-2024 End: 08-13-2024 ambulatory BRONSON MEDRANO Facility:[facility] Start: 08-13-2024 End: 08-13-2024 Patient encounter status Bronson Medrano MD Work Phone: [facility] Work Phone: Start: 08-13-2024 End: 08-13-2024 Periodic preventive med est patient 40-64yrs Bronson Medrano MD Work Phone: [facility] [place] Comment on above: Routine medical exam (Primary Dx); Dysfunction of left eustachian tube; Atypical chest pain; Class 3 severe obesity due to excess calories with body mass index (BMI) of 45.0 to 49.9 in adult, unspecified whether serious comorbidity present (HCC); Excessive daytime sleepiness; White coat syndrome with ?HTN; Encounter for immunization; Screening for depression; Encounter for screening examination for other mental health and behavioral disorders Start: 06-07-2024 End: 06-07-2024 ambulatory BRONSON MEDRANO Facility:[facility] Start: 06-07-2024 End: 06-07-2024 Telemedicine consultation with patient Tere Lema LELA.BEVERAGE HOST Work Phone: Telemedicine Comment on above: Pierced ear infectio n, right, initial encounter (Primary Dx) Start: 04-16-2024 End: 04-16-2024 Patient encounter procedure Maurice Dodge APRN.AKANKSHA Work Phone: [facility] Comment on above: ETD (Eustachian tube dysfunction), left (Primary Dx) Start: 03-06-2024 End: 03-06-2024 [facility] Start: 03-06-2024 End: 03-06-2024 Emergency department patient visit [facility] Work Phone: Start: 01-27-2024 Documentation procedure Mammog robin Coordinator [facility] Start: 01-27-2024 Letter encounter Mammography Coordinator [facility] Department Start: 01-26-2024 End: 01-26-[address] Johnson Lane MD Work Phone: OB/Gynecology Comment on above: Encounter for gyneco logical examination (general) (routine) without abnormal findings (Primary Dx); Screening for cervical cancer; Encounter for screening for human papillomavirus (HPV); Encounter for screening mammogram for breast cancer; Dense breast tissue; Breast discharge; Counseling for control regarding intrauterine device (IUD); Encounter for removal of intrauterine contraceptive device Start: 01-26-2024 End: 01-26-2024 Patient encounter status Johnson Lane MD Work Phone: [facility] Start: 01-26-2024 End: 01-26-2024 Subsequent hospital visit by physician [facility] Comment on above: Encounter for screen ing mammogram for breast cancer [Z12.31] Start: 09-20-2023 ambulatory Brosnon trivedi MD Work Phone: [facility] [place] Start: 07-10-2023 ambulatory Johnson Lee Work Phone: OB/Gynecology Comment on above: Spotting/light perio ds Start: 06-15-2023 Telephone encounter Yasmin eisenberg [employer] Work Phone: [facility] [place] Comment on above: urine culture result s Start: 06-13-2023 End: 06-13-2023 Office outpatient visit 15 minutes Yasmin Syed [employer]OCKKEEPER Work Phone: [facility] [place] Comment on above: Dysuria (Primary Dx) ; Gross hematuria Start: 06-01-2023 Telephone encounter Kassie Casillas MD Work Phone: OB/Gynecology Comment on above: Appointment (Left me ssage for patient to call office. Appt on 06/14 needs cancelled. Patient was rescheduled for 06/16 at 10:20am. Please make sure patient arrives by 10:05am. If this date doesn't workPlease find education spot to reschedule. Thanks) Start: 03-29-2023 ambulatory Bronson trivedi MD Work Phone: [facility] [place] Comment on above: Question on newer ea r peircing problem Start: 03-28-2023 End: 03-28-[address] MD Work Phone: OB/Gynecology Comment on above: Hirsutism (Primary D x); Hair loss; Unintended weight gain; Nipple discharge Start: 10-05-2022 End: 10-05-2022 Patient encounter procedure Bronson Medrano MD Work Phone: [facility] [place] Comment on above: Routine medical exam (Primary Dx); Need for immunization against influenza; Post-COVID chronic cough; Class 3 severe obesity due to excess calories without serious comorbidity with body mass index (BMI) of 45.0 to 49.9 in adult (HCC) Start: 10-05-2022 End: 10-05-2022 Patient encounter status Bronson Medrano MD Work Phone: [facility] [place] Start: 09-29-2022 Patient encounter status Bronson Medrano MD Work Phone: [facility] [place] Start: 09-29-2022 Telephone encounter Bronson turner MD Work Phone: [facility] [place] Comment on above: Orders Start: 09-14-2022 ambulatory Bronson trivedi MD Work Phone: [facility] [place] Start: 09-14-2022 Patient encounter procedure Bronson Medrano MD Work Phone: [facility] [place] Comment on above: Oct 05 appointment ? Start: 09-14-2022 Patient encounter status Bronson Medrano MD Work Phone: [facility] [place] Start: 08-17-2022 Telephone encounter Maren segovia APRN.BEVERAGE HOST Work Phone: [facility] [place] Comment on above: Results Start: 08-16-2022 End: 08-16-[address] MD Work Phone: OB/Gynecology Comment on above: Encounter for gyneco logical examination without abnormal finding (Primary Dx); Encounter for screening for malignant neoplasm of cervix; Special screening examination for human papillomavirus (HPV); Encounter for screening mammogram for malignant neoplasm of breast Start: 08-16-2022 End: 08-16-20[address] Patient encounter status Johnson Lane MD Work Phone: OB/Gynecology Start: 08-16-2022 End: 08-16-2022 Subsequent hospital visit by physician [facility] Work Phone: Radiology Comment on above: Nipple discharge [N6 4.52] Start: 08-09-2022 Telephone encounter Maren segovia APRN.BEVERAGE HOST Work Phone: [facility] [place] Comment on above: Results Start: 08-08-2022 End: 08-08-2022 Patient encounter procedure Maren Justo [employer] HOST Work Phone: [facility] [place] Comment on above: Nipple discharge (Pr imary Dx) Start: 06-24-2022 Telephone encounter Bronson turner MD Work Phone: [facility] [place] Comment on above: Results Start: 06-21-2022 End: 06-21-2022 Patient encounter procedure Napoleon Johnson MD Work Phone: [facility] [place] Comment on above: Dysuria (Primary Dx) Start: 03-06-2022 ambulatory Abi Perez RN N [facility] ICU SPECIALIST Comment on above: Medication Question Results Question regarding U RINE CULTURE LAB USE ON Start: 03-05-2022 ambulatory Bronson trivedi MD Work Phone: [facility] [place] Comment on above: Question regarding C ANDIDA / TRICHOMONAS AMPLIFICATION Start: 03-04-2022 End: 03-04-2022 Patient encounter procedure Estefani Jarrett [employer]EVER[employer] HOST Work Phone: [facility] Comment on above: Cloudy urine (Primar y Dx); Vaginal discharge Start: 02-28-2022 ambulatory Bronson trivedi MD Work Phone: [facility] [place] Comment on above: Question regarding U S ABD SPLEEN - NB Start: 02-25-2022 Telephone encounter Bronson turner MD Work Phone: [facility] [place] Comment on above: Patient Question Procedures Date Procedure Procedure Detail Performing Clinician Start: 08-13-2024 Adult depression scr eening assessment Bronson Medrano MD Work Phone: Start: 03-06-2024 Plain chest X-ray Start: 06-13-2023 Urnls dip stick/tabl et rgnt auto w/o microscopy Yasmin Syed [employer]KEEPER Work Phone: Start: 10-05-2022 INFLUENZA VACCINE QUADRIVALENT 6 MO - 64 YRS IM Bronson Medrano MD Work Phone: Start: 08-16-2022 Us breast uni real t beverly with image limited [facility] Provider Start: 08-16-2022 End: 08-16-2022 Digital breast tomosynthesis bilateral Maren Podlogar [employer] HOST Work Phone: Start: 08-08-2022 Urine test visual color cmprsn meths Maren Podlogar [employer]EVER[employer] HOST Work Phone: Start: 06-21-2022 Urnls dip stick/tabl et rgnt auto w/o microscopy Napoleon Johnson MD Work Phone: Start: 03-04-2022 Urnls dip stick/tabl et rgnt auto w/o microscopy Sofia Sánchez [employer] HOST Work Phone: Start: 09-15-2021 Adult depression scr eening assessment Bronson Medrano MD Work Phone: Plan of Treatment Date Care Activity Detail Author Start: 12-06-2027 Urine microalbumin profile [facility] Start: 08-16-2027 HPV TESTING HPV TESTING [facility] Start: 08-16-2027 PAP TESTING PAP TESTING [facility] Start: 08-16-2027 Screening for malign ant neoplasm of cervix [facility] Start: 08-26-2025 End: 08-26-2025 Patient encounter procedure 08/26/2025 5:20 PM EDT Office Visit [facility] [place] [address] [place] [address] Bronson Medrano MD [address] [place] [address] Yearly physical [facility] [place] Comment on above: Yearly physical Start: 08-13-2025 Anxiety Screening Anxiety Screening [facility] Start: 08-13-2025 Covid-19 Vaccine ( season) Covid-19 Vaccine ( season) [facility] Comment on above: Postponed from 07/28 (Declined at this time) Start: 08-13-2025 Depression Screening Depression Scre ening [facility] Start: 06-03-2025 End: 06-03-2025 Patient encounter procedure Mammogram Comment on above: mammo Annual Exam - Start: 05-28-2025 End: 05-28-2025 Patient encounter procedure 05/28/2025 10:40 AM EDT Office Visit [facility] [place] [address] [facility] [place] [address] Bronson Medrano MD [address] [facility] [place] [address] Yearly physical [facility] [place] Comment on above: Yearly physical Start: 05-21-2025 End: 05-21-2025 Patient encounter procedure 05/21/2025 11:40 AM EDT Office Visit Internal Medicine [facility] [address] [facility] [place] [address] Jeanine Muñoz APRN.[facility]EVERAGE HOST [address] [facility] [place] [address] Weight management/Medications [facility] [place] Comment on above: Weight management/Me dications Start: 05-02-2025 End: 05-02-2025 Patient encounter procedure 05/02/2025 11:00 AM EDT Office Visit Internal Medicine [place] [address] [facility] [place] [address] Jeanine Muñoz APRN.[facility]EVERAGE HOST [address] [facility] [place] [address] Weight management/Medications [facility] [place] Comment on above: Weight management/Me dications Start: 04-08-2025 End: 04-08-2025 Patient encounter procedure 04/08/2025 1:20 PM EDT Office Visit Internal Medicine [facility] [address] [facility] [place] [address] Bronson Medrano MD [address] [facility] [place] [address] Yearly physical Internal Medicine [facility] Comment on above: Yearly physical Start: 01-28-2025 End: 01-28-2025 Patient encounter procedure Mammogram Comment on above: DIANE SCREENING W [facility] annual Start: 01-25-2025 Screening for malign ant neoplasm of breast Mammogram Screening [facility] Start: 01-14-2025 End: 01-14-2025 Patient encounter procedure 01/14/2025 10:20 AM EST Office Visit OB/Gynecology [address] [place] [address] Kassie Chatterjee MD [address] [place] [address] New weight management OB/Gynecology Comment on above: New weight managemen t Start: 01-10-2025 End: 01-10-2025 Patient encounter procedure 01/10/2025 10:20 AM EST Office Visit OB/Gynecology [address] [place] [address] Kassie Chatterjee MD [address] [place] [address] New weight management OB/Gynecology Comment on above: New weight managemen t Start: 09-27-2024 End: 09-27-2024 Patient encounter procedure 09/27/2024 3:00 PM EDT Office Visit Internal Medicine [place] [address] [place] [id number] Jeanine Muñoz APRN.[facility] [address] [place] [address] weight loss management/medication options. [facility] [place] Comment on above: weight loss manageme nt/medication options. Start: 08-13-2024 End: 11-12-2024 CBC panel - Blood by Automated count COMPLETE BLOOD COUNT Lab Routine Class 3 severe obesity due to excess calories with body mass index (BMI) of 45.0 to 49.9 in adult, unspecified whether serious comorbidity present (HCC) White coat syndrome with ?HTN Expected: 08/13/2024, Expires: 11/12/2024 [facility] Comment on above: Expected: 08/13/2024 , Expires: 11/12/2024 Start: 08-13-2024 End: 11-12-2024 Comprehensive metabolic 2000 panel - Serum or Plasma COMPREHENSIVE METABOLIC PANEL Lab Routine Class 3 severe obesity due to excess calories with body mass index (BMI) of 45.0 to 49.9 in adult, unspecified whether serious comorbidity present (HCC) White coat syndrome with ?HTN Expected: 08/13/2024, Expires: 11/12/2024 [facility] Comment on above: Expected: 08/13/2024 , Expires: 11/12/2024 Start: 08-13-2024 End: 11-12-2024 Hemoglobin A1c in Blood HEMOGLOBIN A1C Lab Routine Class 3 severe obesity due to excess calories with body mass index (BMI) of 45.0 to 49.9 in adult, unspecified whether serious comorbidity present (HCC) Expected: 08/13/2024, Expires: 11/12/2024 [facility] Comment on above: Expected: 08/13/2024 , Expires: 11/12/2024 Start: 08-13-2024 End: 11-12-2024 Lipid 1996 panel - Serum or Plasma LIPID PANEL BASIC Lab Routine Class 3 severe obesity due to excess calories with body mass index (BMI) of 45.0 to 49.9 in adult, unspecified whether serious comorbidity present (HCC) White coat syndrome with ?HTN Expected: 08/13/2024, Expires: 11/12/2024 [facility] Comment on above: Expected: 08/13/2024 , Expires: 11/12/2024 Start: 07-28-2024 Influenza vaccination [facility] Start: 07-22-2024 End: 07-22-2024 Patient encounter procedure 07/22/2024 3:20 PM EDT Office Visit OB/Gynecology [address] [place] [address] Kassie Chatterjee MD [address] [place] [address] weight management consult OB/Gynecology Comment on above: weight management co nsult Start: 07-02-2024 End: 07-02-2024 Patient encounter procedure 07/02/2024 1:20 PM EDT Office Visit Internal Medicine [place] [address] [place] [id number] Bronson Medrano MD [address] [place] [address] Yearly check up/Wellness visit [facility] Medicine [place] Comment on above: Yearly check up/Well ness visit Start: 05-15-2024 End: 05-15-2024 Patient encounter procedure 05/15/2024 1:20 PM EDT Office Visit Internal Medicine [place] [address] [place] [address] Bronson Medrano MD [address] [place] [address] Yearly check up/Wellness visit [facility] [place] Comment on above: Yearly check up/Well ness visit Start: 03-06-2024 [facility] Start: 03-06-2024 [facility] Start: 11-27-2023 Behavioral Health Screening Behavioral Health Screening [facility] Start: 11-27-2023 Depression Assessment Depression Ass essment [facility] Start: 10-05-2023 COVID-19 VACCINE (2 - Booster for Andrey series) COVID-19 VACCINE (2 - Booster for Andrey series) [facility] Comment on above: Postponed from 08/19 (Declined at this time) Start: 08-16-2023 Mammography [facility] Start: 08-16-2023 Screening for malign ant neoplasm of breast Mammogram Screening [facility] Start: 07-28-2023 Covid-19 Vaccine ( season) Covid-19 Vaccine () [facility] Start: 07-28-2023 Influenza vaccination [facility] Start: 07-14-2023 End: 09-13-2023 Urinalysis complete panel - Urine URINALYSIS, WITH MICROSCOPIC Lab Routine Dysuria Gross hematuria Expected: 07/14/2023 (Approximate), Expires: 09/13/2023 [facility] Work Phone: Comment on above: Expected: 07/14/2023 (Approximate), Expires: 09/13/2023 Start: 06-13-2023 End: 06-13-2024 Bacteria identified in Urine by Culture [facility] Work Phone: Comment on above: Expected: 06/13/2023 , Expires: 06/13/2024 Start: 03-28-2023 End: 05-28-2023 17-Hydroxyprogesterone [Mass/volume] in Serum or Plasma HYDROXYPROGESTERO-17 Lab Routine Hirsutism Unintended weight gain Expected: 03/28/2023, Expires: 05/28/2023 [facility] Work Phone: Comment on above: Expected: 03/28/2023 , Expires: 05/28/2023 Start: 03-28-2023 End: 05-28-2023 DHEA-S BLD DHEA-S BLD Lab Routine Hirsutism Unintended weight gain Expected: 03/28/2023, Expires: 05/28/2023 [facility] Work Phone: Comment on above: Expected: 03/28/2023 , Expires: 05/28/2023 Start: 03-28-2023 End: 05-28-2023 Estradiol (E2) [Mass/volume] in Serum or Plasma ESTRADIOL-17B BLD Lab Routine Hirsutism Unintended weight gain Expected: 03/28/2023, Expires: 05/28/2023 [facility] Work Phone: Comment on above: Expected: 03/28/2023 , Expires: 05/28/2023 Start: 03-28-2023 End: 05-28-2023 Follitropin [Units/volume] in Serum or Plasma FSH BLD Lab Routine Hirsutism Unintended weight gain Expected: 03/28/2023, Expires: 05/28/2023 [facility] Work Phone: Comment on above: Expected: 03/28/2023 , Expires: 05/28/2023 Start: 03-28-2023 End: 05-28-2023 Hemoglobin A1c in Blood HGB A1C Lab Routine Hirsutism Unintended weight gain Expected: 03/28/2023, Expires: 05/28/2023 [facility] Work Phone: Comment on above: Expected: 03/28/2023 , Expires: 05/28/2023 Start: 03-28-2023 End: 05-28-2023 Lutropin [Units/volume] in Serum or Plasma LUTEINIZING HORMONE Lab Routine Hirsutism Unintended weight gain Expected: 03/28/2023, Expires: 05/28/2023 [facility] Work Phone: Comment on above: Expected: 03/28/2023 , Expires: 05/28/2023 Start: 03-28-2023 End: 03-28-2024 PELVIC US WHI PELVIC US WHI Anc Imaging Routine Hirsutism Unintended weight gain Expected: 03/28/2023, Expires: 03/28/2024 [facility] Work Phone: Comment on above: Expected: 03/28/2023 , Expires: 03/28/2024 Start: 03-28-2023 End: 05-28-2023 Prolactin [Mass/volume] in Serum or Plasma PROLACTIN BLD Lab Routine Hirsutism Unintended weight gain Expected: 03/28/2023, Expires: 05/28/2023 [facility] Work Phone: Comment on above: Expected: 03/28/2023 , Expires: 05/28/2023 Start: 03-28-2023 End: 05-28-2023 TESTOSTERONE, FREE AND TOTAL TESTOSTERONE, FREE AND TOTAL Lab Routine Hirsutism Unintended weight gain Expected: 03/28/2023, Expires: 05/28/2023 [facility] Work Phone: Comment on above: Expected: 03/28/2023 , Expires: 05/28/2023 Start: 03-28-2023 End: 05-28-2023 Thyrotropin [Units/volume] in Serum or Plasma TSH BLD Lab Routine Hirsutism Hair loss Unintended weight gain Expected: 03/28/2023, Expires: 05/28/2023 [facility] Work Phone: Comment on above: Expected: 03/28/2023 , Expires: 05/28/2023 Start: 11-27-2022 DEPRESSION ASSESSMENT DEPRESSION ASS ESSMENT [facility] Start: 09-29-2022 End: 01-03-2023 LIPID PANEL, NONFASTING LIPID PANEL, NONFASTING Lab Routine Routine general medical examination at a health [facility] facility Screening, lipid Expected: 09/29/2022, Expires: 11/29/2022 [facility] Work Phone: Comment on above: Expected: 09/29/2022 , Expires: 11/29/2022 Start: 09-27-2022 End: 11-27-2022 CBC W Auto Differential panel - Blood CBC + DIFF Lab Routine Routine medical exam Expected: 09/27/2022, Expires: 11/27/2022 [facility] Work Phone: Comment on above: Expected: 09/27/2022 , Expires: 11/27/2022 Start: 09-27-2022 End: 11-27-2022 Comprehensive metabolic 2000 panel - Serum or Plasma COMP METABOLIC PANEL Lab Routine Routine medical exam Expected: 09/27/2022, Expires: 11/27/2022 [facility] Work Phone: Comment on above: Expected: 09/27/2022 , Expires: 11/27/2022 Start: 09-27-2022 End: 11-27-2022 Lipid 1996 panel - Serum or Plasma LIPID PANEL BASIC Lab Routine Routine medical exam Screening, lipid Expected: 09/27/2022, Expires: 11/27/2022 [facility] Work Phone: Comment on above: Expected: 09/27/2022 , Expires: 11/27/2022 Start: 09-15-2022 Adult depression screening assessment DEPRESSION SCREENING [facility] Start: 08-08-2022 End: 10-08-2022 Comprehensive metabolic 2000 panel - Serum or Plasma [facility] Work Phone: Comment on above: Expected: 08/08/2022 , Expires: 10/08/2022 Start: 08-08-2022 End: 10-08-2022 Prolactin [Mass/volume] in Serum or Plasma [facility] Work Phone: Comment on above: Expected: 08/08/2022 , Expires: 10/08/2022 Start: 08-08-2022 End: 10-08-2022 Thyrotropin [Units/volume] in Serum or Plasma [facility] Work Phone: Comment on above: Expected: 08/08/2022 , Expires: 10/08/2022 Start: 07-28-2022 Influenza vaccination INFLUENZA (#1) [facility] Start: 11-27-2021 DEPRESSION ASSESSMENT DEPRESSION ASS ESSMENT [facility] Start: 08-19-2021 COVID-19 VACCINE (2 - Booster for Andrey series) COVID-19 VACCINE (2 - Booster for Andrey series) [facility] Start: 2013 HPV TESTING HPV TESTING [facility] Start: 2004 PAP TESTING PAP TESTING [facility] Start: 2001 HIV SCREENING HIV SCREENING [facility] Bacteria identified in Urine by Culture URINE CULTURE Microbiology Routine Cloudy urine Ordered: 03/04/2022 [facility] Work Phone: Comment on above: Ordered: 03/04/2022 Bacteria identified in Urine by Culture URINE CULTURE Microbiology Routine Dysuria 06/21/2022 4:29 PM EDT [facility] Work Phone: BACTERIAL VAGINOSIS AMPLIFICATION BACTERIAL VAGINOSIS AMPLIFICATION Lab Routine Vaginal discharge Ordered: 03/04/2022 [facility] Work Phone: Comment on above: Ordered: 03/04/2022 KIA / TRICHOMONA S AMPLIFICATION KIA / TRICHOMONAS AMPLIFICATION Lab Routine Vaginal discharge Ordered: 03/04/2022 [facility] Work Phone: Comment on above: Ordered: 03/04/2022 End: 02-24-2025 DBT Breast - bilateral screening DIANE SCREENING [facility] Radiology Routine Encounter for screening mammogram for breast cancer Dense breast tissue 1 Occurrences starting 01/26/2024 until 02/24/2025 [facility] Work Phone: Comment on above: 1 Occurrences starti ng 01/26/2024 until 02/24/2025 DBT Breast - bilater al screening DIANE SCREENING [facility] Radiology Routine Encounter for screening mammogram for breast cancer 01/26/2024 12:53 PM EST [facility] Work Phone: End: 09-07-2023 Diagnostic mammography computer-aided detcj uni DIANE DIAGNOSTIC RT Radiology Routine Nipple discharge 1 Occurrences starting 08/08/2022 until 09/07/2023 [facility] Work Phone: Comment on above: 1 Occurrences starti ng 08/08/2022 until 09/07/2023 End: 08-13-2025 HOME SLEEP APNEA TEST (HSAT) HOME SLEEP APNEA TEST (HSAT) Procedures Routine Class 3 severe obesity due to excess calories with body mass index (BMI) of 45.0 to 49.9 in adult, unspecified whether serious comorbidity present (HCC) Excessive daytime sleepiness White coat syndrome with ?HTN 1 Occurrences starting 08/13/2024 until 08/13/2025 [facility] Work Phone: Comment on above: 1 Occurrences starti ng 08/13/2024 until 08/13/2025 Insertion intrauteri ne device iud INSERT INTRAUTERINE DEVICE Procedures Routine Counseling for control regarding intrauterine device (IUD) Encounter for removal of intrauterine contraceptive device Ordered: 01/26/2024 [facility] Work Phone: Comment on above: Ordered: 01/26/2024 End: 10-19-2024 DIANE SCREENING W [facility] DIANE SCREENING W [facility] Radiology Routine Encounter for screening mammogram for breast cancer 1 Occurrences starting 09/20/2023 until 10/19/2024 [facility] Work Phone: Comment on above: 1 Occurrences starti ng 09/20/2023 until 10/19/2024 PAP FLUID CERVICAL SCREENING PAP FLUID CERVICAL SCREENING Lab Routine Encounter for screening for malignant neoplasm of cervix Special screening examination for human papillomavirus (HPV) 08/16/2022 3:24 PM EDT [facility] Work Phone: Patient Education ED Chest Pain, Uncertain Cause [facility] Work Phone: Patient referral [facility] Work Phone: Removal intrauterine device iud REMOVE INTRAUTERINE DEVICE Procedures Routine Encounter for removal of intrauterine contraceptive device Ordered: 01/26/2024 [facility] Work Phone: Comment on above: Ordered: 01/26/2024 End: 09-15-2023 Screening mammography bi 2-view breast inc cad DIANE SCREENING Radiology Routine Encounter for screening mammogram for malignant neoplasm of breast 1 Occurrences starting 08/16/2022 until 09/15/2023 [facility] Work Phone: Comment on above: 1 Occurrences starti ng 08/16/2022 until 09/15/2023 UA DIP B/O UA DIP B/O Lab R outine Dysuria Ordered: 06/13/2023 [facility] Work Phone: Comment on above: Ordered: 06/13/2023 End: 09-07-2023 Us breast uni real time with image limited US BREAST LTD RT Radiology Routine Nipple discharge 1 Occurrences starting 08/08/2022 until 09/07/2023 [facility] Work Phone: Comment on above: 1 Occurrences starti ng 08/08/2022 until 09/07/2023 End: 04-26-2024 Us pelvic nonobstetric image dcmtn limited/f/u US FEMALE PELVIS TRANSABD LTD Radiology Routine Hirsutism Hair loss Unintended weight gain 1 Occurrences starting 03/28/2023 until 04/26/2024 [facility] Work Phone: Comment on above: 1 Occurrences starti ng 03/28/2023 until 04/26/2024 End: 04-26-2024 Us transvaginal US FEMALE PELVIS TRANSVAG Radiology Routine Hirsutism Hair loss Unintended weight gain 1 Occurrences starting 03/28/2023 until 04/26/2024 [facility] Work Phone: Comment on above: 1 Occurrences starti ng 03/28/2023 until 04/26/2024 [facility] Immunizations Immunization Date Immunization Notes Care Provider Joselito keenan 08-13-2024 influenza, seasonal, injectable Bronson Medrano MD Work Phone: [facility] 10-05-2022 influenza, injectabl e, quadrivalent, contains preservative Bronson Medrano MD Work Phone: [facility] 10-05-2022 influenza virus vacc ine, unspecified formulation Bronson Medrano MD Work Phone: [facility] 09-21-2021 influenza, injectabl e, quadrivalent, contains preservative Bronson Medrano MD Work Phone: [facility] 06-24-2021 COVID-19 vaccine (ANDREY) Bronson Medrano MD Work Phone: [facility] 12-06-2017 tetanus toxoid, redu larissa diphtheria toxoid, and acellular pertussis vaccine, adsorbed Bronson Medrano MD Work Phone: [facility] Payers Date Payer Category Payer Self-pay [id number] 2021 Unknown [facility] [id number] 2021-Present [phone] [address] [place] [address] Indemnity [id number] 2021 Government (not [facility] care or Medicaid) [id number] 2021 Unknown [id number] 2017 [employer] ( and others) [id number] Unknown [id number] Social History Date Type Detail Facility Start: 01-20-2012 End: 08-08-2022 Tobacco smoking status NHIS Never smoked tobacco [facility] Work Phone: Start: 01-20-2012 End: 08-08-2022 Tobacco use and exposure Smokeless tobacco non-user [facility] Work Phone: Start: 09-21-2021 End: 07-14-2023 Alcohol intake Current drinker of alcohol (finding) [facility] Start: 09-15-2021 History SDOH Alcohol Frequency 4 [facility] Start: 09-15-2021 End: 03-22-2022 History SDOH Alcohol Std Drinks 1 [facility] Start: 09-15-2021 End: 10-03-2022 History SDOH Alcohol Binge 2 [facility] Start: 06-01-2018 History SDOH Alcohol Comment socially [facility] Start: 09-15-2021 History SDOH Social Connections Phone 3 [facility] Start: 09-15-2021 History SDOH Financial 5 [facility] Start: 09-15-2021 Education 21 [facility] Start: 1985 Sex Assigned At Female [facility] Start: 12-28-2021 End: 10-05-2022 Exposure to SARS-CoV-2 (event) Not sure [facility] Start: 08-05-2022 End: 08-15-2022 Exposure to SARS-CoV-2 (event) Unable to assess [facility] Start: 09-15-2021 End: 07-14-2023 History of Social function [facility] Start: 09-15-2021 End: 07-14-2023 Social connection and isolation panel [facility] Do you belong to any clubs or organizations such as amish groups, unions, fraternal or athletic groups, or school groups? Yes [facility] Are you now , , , , never or living with a partner? [facility] How often to you hav e a drink containing alcohol? 2-3 time sa week [facility] How many standard dr inks containing alcohol do you have on a typical day? 1 or 2 [facility] How often do you hav e 6 or more drinks on 1 occasion? Less than monthly [facility] How hard is it for y ou to pay for the very basics like food, housing, medical care, and heating Not hard at all [facility] Do you feel stress - tense, restless, nervous, or anxious, or unable to sleep at night because your mind is troubled all the time - these days [OSQ] Only a little [facility] (I/We) worried wheth er (my/our) food would run out before (I/we) got money to buy more. Never true [facility] In the past 12 month s, was there a time when you were not able to pay the mortgage or rent on time? No [facility] Start: 10-15-2021 Sexual orientation Heterosexual (finding) [facility] Start: 01-26-2024 End: 05-01-2025 Alcohol intake Ex-drinker (finding) [facility] Start: 03-06-2024 Tobacco smoking status NHIS Unknown if ever smoked [facility] Start: 02-17-2018 None [facility] Start: 06-12-2018 Non-smoker [facility] How often to you hav e a drink containing alcohol? 2-4 times a month [facility] Do you feel stress - tense, restless, nervous, or anxious, or unable to sleep at night because your mind is troubled all the time - these days [OSQ] To some extent [facility] How often to you hav e a drink containing alcohol? Monthly or less [facility] How often do you hav e 6 or more drinks on 1 occasion? Never [facility] Medical Equipment Procedure Code Equipment Code Equipment Origin al Text Equipment Identifier Dates OLIVER ELLISON FDA Start: 06-14-2018 OLIVER ELLISON FDA Start: 06-14-2018 Blood Sugar Diagnostic (True Metrix Glucose Test Strip) strip Start: 01-02-2018 End: 04-05-2018 Mental Status Date Assessment Result Facility 03-06-2024 Cognitive function Voice/Name [facility] Work Phone: Clinical Notes 02-25-2022 to 05-13-2025 Andres Ortega PA-C - 05/13/2025 6:45 PM Royce Costa APRN.[facility] - 05/01/2025 3:37 PM Bronson Cardenas MD - 08/13/2024 1:20 PM Tere Mcgraw APRN.[facility]EVER[facility] HOST - 06/07/2024 11:23 AM EDT Note Date & Type Note Facility 05-13-2025 Note HNO ID: [id number] Author: ANDRES ORTEGA PA-C Service: ? Author Type: Physician Dulser Type: Progress Notes Filed: 05/13/2025 18:49 Note Text: This note was created using [email or web address]. Subjective Bee Church is a 40 year old female. Patient is a 40-year-old female who complains of left ear pain that she has been experiencing for the past 2 days. Patient was seen evaluated at this facility on 01 May 2025 at which time she was diagnosed with acute sinusitis and placed on Augmentin. Patient states that she did complete the Augmentin course as directed. Patient states that she was feeling improvement until development of left ear pain 2 days ago. Patient states that her right ear is asymptomatic and nontender. Patient reports that the left ear pain does radiate to her left jaw. Patient states that her sore throat and cough have resolved. Patient denies fever, chills or other illness symptoms. Ear Pain Review of Systems HENT: Positive for ear pain. All other systems reviewed and are negative. Objective BP 128/82 Pulse 92 Temp 36.6 ?C (97.9 ?F) Resp 18 Wt 134.8 kg (297 lb 2.9 oz) LMP (LMP Unknown) SpO2 96% BMI 51.36 kg/m? Physical Exam Vitals and nursing note reviewed. Constitutional: Appearance: Normal appearance. She is normal weight. HENT: Head: Normocephalic and atraumatic. Right Ear: Tympanic membrane, ear canal and external ear normal. Left Ear: Tympanic membrane, ear canal and external ear normal. Ears: Comments: Tympanic membranes are clear with excellent color and light reflex bilaterally. Left external canal is unremarkable and the patient experienced no tenderness with speculum insertion and otic exam. Left auricle is clear without erythema or edema. Exam of the right external canal is unremarkable. Nose: Nose normal. Mouth/Throat: Mouth: Mucous membranes are moist. Pharynx: Oropharynx is clear. Eyes: Extraocular Movements: Extraocular movements intact. Conjunctiva/sclera: Conjunctivae normal. Pupils: Pupils are equal, round, and reactive to light. Cardiovascular: Rate and Rhythm: Normal rate and regular rhythm. Pulses: Normal pulses. Heart sounds: Normal heart sounds. Pulmonary: Effort: Pulmonary effort is normal. Breath sounds: Normal breath sounds. Musculoskeletal: Cervical back: Normal range of motion and neck supple. Skin: General: Skin is warm and dry. Capillary Refill: Capillary refill takes less than 2 seconds. Neurological: General: No focal deficit present. Mental Status: She is alert and oriented to person, place, and time. Psychiatric: Mood and Affect: Mood normal. Behavior: Behavior normal. Thought Content: Thought content normal. Judgment: Judgment normal. Assessment and Plan Physical exam findings as noted above. Patient was provided with prescriptions for prednisone 20 mg and Sudafed 120 mg. Patient was assured that there is no evidence of bacterial infection at this time requiring further antibiotic treatment. Supportive care instructions were discussed and the patient verbalizes clear understanding of same. CLINICAL IMPRESSION: ETD Left Ear ASSESSMENT/PLAN: 1. Dysfunction of left eustachian tube - ICD9: 381.81, ICD10: H69.92 - PREDNISONE 20 MG TABLET - PSEUDOEPHEDRINE ER 120 MG TABLET,EXTENDED RELEASE MDM Risk of Complications, Morbidity, and/or Mortality Presenting problems: low Diagnostic procedures: low Management options: elio Ortega PA-C [facility] 05-13-2025 History of Present illness Narrative This note was created using [employer]. Subjective Bee Church is a 40 year old female. Patient is a 40-year-old female who complains of left ear pain that she has been experiencing for the past 2 days. Patient was seen evaluated at this facility on 01 May 2025 at which time she was diagnosed with acute sinusitis and placed on Augmentin. Patient states that she did complete the Augmentin course as directed. Patient states that she was feeling improvement until development of left ear pain 2 days ago. Patient states that her right ear is asymptomatic and nontender. Patient reports that the left ear pain does radiate to her left jaw. Patient states that her sore throat and cough have resolved. Patient denies fever, chills or other illness symptoms. Ear Pain Review of Systems HENT: Positive for ear pain. All other systems reviewed and are negative. Objective BP 128/82 Pulse 92 Temp 36.6 C (97.9 F) Resp 18 Wt 134.8 kg (297 lb 2.9 oz) LMP (LMP Unknown) SpO2 96% BMI 51.36 kg/m Physical Exam Vitals and nursing note reviewed. Constitutional: Appearance: Normal appearance. She is normal weight. HENT: Head: Normocephalic and atraumatic. Right Ear: Tympanic membrane, ear canal and external ear normal. Left Ear: Tympanic membrane, ear canal and external ear normal. Ears: Comments: Tympanic membranes are clear with excellent color and light reflex bilaterally. Left external canal is unremarkable and the patient experienced no tenderness with speculum insertion and otic exam. Left auricle is clear without erythema or edema. Exam of the right external canal is unremarkable. Nose: Nose normal. Mouth/Throat: Mouth: Mucous membranes are moist. Pharynx: Oropharynx is clear. Eyes: Extraocular Movements: Extraocular movements intact. Conjunctiva/sclera: Conjunctivae normal. Pupils: Pupils are equal, round, and reactive to light. Cardiovascular: Rate and Rhythm: Normal rate and regular rhythm. Pulses: Normal pulses. Heart sounds: Normal heart sounds. Pulmonary: Effort: Pulmonary effort is normal. Breath sounds: Normal breath sounds. Musculoskeletal: Cervical back: Normal range of motion and neck supple. Skin: General: Skin is warm and dry. Capillary Refill: Capillary refill takes less than 2 seconds. Neurological: General: No focal deficit present. Mental Status: She is alert and oriented to person, place, and time. Psychiatric: Mood and Affect: Mood normal. Behavior: Behavior normal. Thought Content: Thought content normal. Judgment: Judgment normal. Assessment and Plan Physical exam findings as noted above. Patient was provided with prescriptions for prednisone 20 mg and Sudafed 120 mg. Patient was assured that there is no evidence of bacterial infection at this time requiring further antibiotic treatment. Supportive care instructions were discussed and the patient verbalizes clear understanding of same. CLINICAL IMPRESSION: ETD Left Ear ASSESSMENT/PLAN: 1. Dysfunction of left eustachian tube - ICD9: 381.81, ICD10: H69.92 - PREDNISONE 20 MG TABLET - PSEUDOEPHEDRINE ER 120 MG TABLET,EXTENDED RELEASE MDM Risk of Complications, Morbidity, and/or Mortality Presenting problems: low Diagnostic procedures: low Management options: elio Ortega PA-C documented in this encounter [facility] 05-01-2025 Note HNO ID: [id number] Author: ROYCE BLOOM APRN.[facility]EVER[employer] HOST Service: ? Author Type: Nurse Practitioner Type: Progress Notes Filed: 05/01/2025 16:16 Note Text: [facility] Subjective Bee Church is a 40 year old female. Patient presents with: Head Congestion: Chest congestion, headache,fullness in head, bilat ear pain, throat, tightness in chest with cough x 10 days HPI Review of Systems Constitutional: Negative for fatigue and fever. HENT: Positive for congestion, postnasal drip, rhinorrhea, sinus pressure, sinus pain and sore throat. Respiratory: Negative for cough and shortness of breath. Cardiovascular: Negative for chest pain. Gastrointestinal: Negative for abdominal pain, constipation and diarrhea. Objective BP 150/87 Pulse 84 Temp 36.1 ?C (97 ?F) Resp 20 Wt 134 kg (295 lb 6.7 oz) LMP (LMP Unknown) SpO2 99% BMI 51.06 kg/m? No past medical history on file. PAST SURGICAL HISTORY Procedure Laterality Date D AND C MIRENA IUD 02/2018 ALLERGIES Seasonal Allergies and Shellfish Containing Products MEDICATIONS cetirizine (ZYRTEC) 10 mg tablet Take 10 mg by mouth once daily. levonorgestrel (MIRENA) 20 mcg/24 hours (7 yrs) 52 mg IUD 1 Each by INTRAUTERINE route one time only. amoxicillin-clavulanate potassium (AUGMENTIN) 875-125 mg per tablet Take 1 tablet by mouth two times a day for 5 days. benzonatate (TESSALON PERLE) 100 mg capsule Take 2 capsules by mouth three times a day as needed. fluticasone (FLONASE ALLERGY RELIEF) 50 mcg/actuation nasal spray Use 1 spray in each nostril once daily. fluticasone (FLONASE) 50 mcg/actuation nasal spray Use 2 Sprays in each nostril once daily. Rinse mouth after use. (Patient not taking: Reported on 05/01/2025) FAMILY HISTORY Problem Relation Age of Onset other (brain tumor) Mother other (heart murmur) Sister Breast Cancer Sister 43 with metastases to live and bonesr; not aggressive Drug abuse Sister other (lung ca) Sister Social History Tobacco Use Smoking status: Never Smokeless tobacco: Never Vaping Use Vaping status: Never Used Substance Use Topics Alcohol use: Not Currently Comment: socially Drug use: Never Physical Exam Vitals reviewed. HENT: Head: Salivary Glands: Right salivary gland is not tender. Left salivary gland is not tender. Right Ear: Ear canal and external ear normal. A middle ear effusion is present. Left Ear: Ear canal and external ear normal. A middle ear effusion is present. Nose: Congestion and rhinorrhea present. Right Sinus: Maxillary sinus tenderness present. Left Sinus: Maxillary sinus tenderness present. Mouth/Throat: Pharynx: Uvula midline. Postnasal drip present. No uvula swelling. Tonsils: No tonsillar exudate or tonsillar abscesses. Cardiovascular: Rate and Rhythm: Normal rate and regular rhythm. Heart sounds: Normal heart sounds, S1 normal and S2 normal. Pulmonary: Effort: Pulmonary effort is normal. Breath sounds: Normal breath sounds and air entry. Neurological: Mental Status: She is alert. {ASSESSMENT/PLAN: 1. Acute non-recurrent maxillary sinusitis - ICD9: 461.0, ICD10: J01.00 - Will begin treatment with Augmentin 875 mg PO BID for 5 days - Supportive care with plenty of fluids, rest, and analgesia prn. - Follow up in 3-5 days if symptoms persist or worsen. - Flonase - BENZONATATE 100 MG CAPSULE Royce Bloom APRN.[employer]EVERAGE HOST History and Record Review External record(s) reviewed: prior outpatient record. Findings from review of outpatient records: PRevious medical history Differential Diagnoses - sinusitis is more likely for the following reason(s): suggested by HANDP - Pneumonia is less likely for the following reason(s): HANDP not suggestive Disposition The patient was discharged. OTC Medications were advised: Flonase patient well-appearing nontoxic in no acute respiratory distress 40-year-old female presents with acute sinusitis patient symptoms were improving over the last 2 days worsening even with decongestants. Patient started on Augmentin, Flonase and tessalon. No concerns of pneumonia or acute cardiopulmonary process today [facility] 05-01-2025 History of Present illness Narrative [facility] Subjective Bee Church is a 40 year old female. Patient presents with: Head Congestion: Chest congestion, headache,fullness in head, bilat ear pain, throat, tightness in chest with cough x 10 days HPI Review of Systems Constitutional: Negative for fatigue and fever. HENT: Positive for congestion, postnasal drip, rhinorrhea, sinus pressure, sinus pain and sore throat. Respiratory: Negative for cough and shortness of breath. Cardiovascular: Negative for chest pain. Gastrointestinal: Negative for abdominal pain, constipation and diarrhea. Objective BP 150/87 Pulse 84 Temp 36.1 C (97 F) Resp 20 Wt 134 kg (295 lb 6.7 oz) LMP (LMP Unknown) SpO2 99% BMI 51.06 kg/m No past medical history on file. PAST SURGICAL HISTORY Procedure Laterality Date D AND C MIRENA IUD 02/2018 ALLERGIES Seasonal Allergies and Shellfish Containing Products MEDICATIONS cetirizine (ZYRTEC) 10 mg tablet Take 10 mg by mouth once daily. levonorgestrel (MIRENA) 20 mcg/24 hours (7 yrs) 52 mg IUD 1 Each by INTRAUTERINE route one time only. amoxicillin-clavulanate potassium (AUGMENTIN) 875-125 mg per tablet Take 1 tablet by mouth two times a day for 5 days. benzonatate (TESSALON PERLE) 100 mg capsule Take 2 capsules by mouth three times a day as needed. fluticasone (FLONASE ALLERGY RELIEF) 50 mcg/actuation nasal spray Use 1 spray in each nostril once daily. fluticasone (FLONASE) 50 mcg/actuation nasal spray Use 2 Sprays in each nostril once daily. Rinse mouth after use. (Patient not taking: Reported on 05/01/2025) FAMILY HISTORY Problem Relation Age of Onset other (brain tumor) Mother other (heart murmur) Sister Breast Cancer Sister 43 with metastases to live and bonesr; not aggressive Drug abuse Sister other (lung ca) Sister Social History Tobacco Use Smoking status: Never Smokeless tobacco: Never Vaping Use Vaping status: Never Used Substance Use Topics Alcohol use: Not Currently Comment: socially Drug use: Never Physical Exam Vitals reviewed. HENT: Head: Salivary Glands: Right salivary gland is not tender. Left salivary gland is not tender. Right Ear: Ear canal and external ear normal. A middle ear effusion is present. Left Ear: Ear canal and external ear normal. A middle ear effusion is present. Nose: Congestion and rhinorrhea present. Right Sinus: Maxillary sinus tenderness present. Left Sinus: Maxillary sinus tenderness present. Mouth/Throat: Pharynx: Uvula midline. Postnasal drip present. No uvula swelling. Tonsils: No tonsillar exudate or tonsillar abscesses. Cardiovascular: Rate and Rhythm: Normal rate and regular rhythm. Heart sounds: Normal heart sounds, S1 normal and S2 normal. Pulmonary: Effort: Pulmonary effort is normal. Breath sounds: Normal breath sounds and air entry. Neurological: Mental Status: She is alert. {ASSESSMENT/PLAN: 1. Acute non-recurrent maxillary sinusitis - ICD9: 461.0, ICD10: J01.00 - Will begin treatment with Augmentin 875 mg PO BID for 5 days - Supportive care with plenty of fluids, rest, and analgesia prn. - Follow up in 3-5 days if symptoms persist or worsen. - Flonase - BENZONATATE 100 MG CAPSULE Royce Bloom APRN.CNP History and Record Review External record(s) reviewed: prior outpatient record. Findings from review of outpatient records: PRevious medical history Differential Diagnoses - sinusitis is more likely for the following reason(s): suggested by H&P - Pneumonia is less likely for the following reason(s): H&P not suggestive Disposition The patient was discharged. OTC Medications were advised: Flonase patient well-appearing nontoxic in no acute respiratory distress 40-year-old female presents with acute sinusitis patient symptoms were improving over the last 2 days worsening even with decongestants. Patient started on Augmentin, Flonase and tessalon. No concerns of pneumonia or acute cardiopulmonary process today documented in this encounter [facility] 08-13-2024 History of Present illness Narrative This note was created using [email or web address]. Subjective Bee Church is a 39 year old female. HISTORY Bee Church is a 39 year old lady here for yearly exam and follow up appointment. She follows with [facility]. The patient is a 39-year-old female with a history of PCOS, presenting with concerns about ear pressure, weight management, and anxiety. The patient reports experiencing ear pressure and discomfort since March, described as a painful, twingy, poppy sensation, similar to the feeling of being on an airplane. This sensation has evolved into a constant tinny sound, which has improved but not completely resolved. She was evaluated in March and was advised that the symptoms would resolve on their own. She was prescribed a steroid, which she did not use due to concerns about potential side effects on blood pressure and blood glucose levels. She did use Flonase, which alleviated some symptoms. She denies current nasal congestion but reports occasional pressure changes related to weather and allergies. She expresses concern about an upcoming flight on Monday. The patient also reports a history of chest pain in February, for which she was evaluated in the ER. She was told the chest pain was likely due to stress and was advised to de-stress. She continues to experience occasional chest pain when feeling overwhelmed. The patient has a significant family history of cancer, including two sisters with breast cancer (one with metastasis to the liver and bones), a maternal aunt with breast cancer, and a grandmother with pancreatic cancer. She is concerned about her own risk and has been advised to update her medical records accordingly. The patient has been diagnosed with PCOS and reports symptoms of hair loss and hirsutism. She has been unable to lose weight despite regular aerobic exercise (30-45 minutes, 5-6 days a week) and a healthy diet. She has been trying to lose weight for three years without success. She reports a weight plateau at 280 lbs, despite losing 9 lbs over the summer. She follows a diet low in processed foods, high in fruits, vegetables, and whole grains, and avoids sugary drinks. She monitors her blood glucose levels and reports morning readings of 120 mg/dL, with postprandial readings never exceeding 140 mg/dL. She also monitors her blood pressure, which she reports as occasionally reaching 135/80 mmHg, but usually around 120/80 mmHg. The patient has been using a Mirena IUD for contraception and reports irregular spotting. She expresses a desire to have the IUD removed due to concerns about weight gain and anxiety, which she attributes to the IUD. She reports gaining 90 lbs in one year after the IUD was placed. The patient reports poor sleep quality, which she attributes to stress and anxiety, as well as her [id number] daughter's separation anxiety at night. She denies symptoms of sleep apnea, such as snoring or observed apneas. She reports daytime fatigue and low energy levels. The patient reports high levels of stress and anxiety, which she attributes to her sister's cancer diagnosis and her own health concerns. She denies feelings of depression but reports feeling overwhelmed. She has not been on medication for anxiety or depression but is considering it. She reports drinking alcohol socially, with no more than 1-2 drinks per occasion, and denies ever consuming six or more drinks on one occasion. No past medical history on file. Current Outpatient Medications Medication Sig fluticasone (FLONASE) 50 mcg/actuation nasal spray Use 2 Sprays in each nostril once daily. Rinse mouth after use. levonorgestrel (MIRENA) 20 mcg/24 hours (7 yrs) 52 mg IUD 1 Each by INTRAUTERINE route one time only. No current facility-administered medications for this visit. ALLERGIES Allergen Reactions Seasonal Allergies Other: See Comments Shellfish Containin* Vomiting FAMILY HISTORY Problem Relation Age of Onset other (brain tumor) Mother other (heart murmur) Sister Drug abuse Sister other (lung ca) Sister Social History Tobacco Use Smoking status: Never Smokeless tobacco: Never Vaping Use Vaping status: Never Used Substance Use Topics Alcohol use: Not Currently Comment: socially Drug use: Never Review of Systems Objective BP 138/104 Pulse 89 Temp 37 C (98.6 F) Resp 16 Ht 162 cm (5' 3.78) Wt 127.8 kg (281 lb 12 oz) LMP (LMP Unknown) SpO2 97% BMI 48.70 kg/m Last 5 Encounter Wt Readings: Date: Wt: 08/13/2024 127.8 kg (281 lb 12 oz) 04/16/2024 131.3 kg (289 lb 7.4 oz) 01/26/2024 131.7 kg (290 lb 6.4 oz) 07/14/2023 127.9 kg (282 lb) 06/13/2023 129.3 kg (285 lb) No waist measurement recorded Estimated body mass index is 48.7 kg/m as calculated from the following: Height as of this encounter: 162 cm (5' 3.78). Weight as of this encounter: 127.8 kg (281 lb 12 oz). Last 5 Encounter BP Readings: Date: BP: 08/13/2024 138/104 04/16/2024 132/80 01/26/2024 154/104[Provider notified of blood pressure- patient states she takes her blood pressure at home and it is within normal limits[ 07/14/2023 150/82 06/13/2023 138/88 Physical Exam Vitals reviewed. Constitutional: Appearance: Normal appearance. She is well-developed. HENT: Head: Normocephalic and atraumatic. Right Ear: Tympanic membrane, ear canal and external ear normal. Left Ear: Tympanic membrane, ear canal and external ear normal. Nose: Nose normal. Mouth/Throat: Mouth: Mucous membranes are moist. Eyes: Conjunctiva/sclera: Conjunctivae normal. Pupils: Pupils are equal, round, and reactive to light. Neck: Thyroid: No thyromegaly. Vascular: No carotid bruit. Cardiovascular: Rate and Rhythm: Normal rate and regular rhythm. Pulses: Normal pulses. Heart sounds: Normal heart sounds. No murmur heard. No friction rub. No gallop. Pulmonary: Effort: Pulmonary effort is normal. Breath sounds: Normal breath sounds. Abdominal: General: Bowel sounds are normal. There is no distension. Palpations: Abdomen is soft. There is no mass. Tenderness: There is no abdominal tenderness. Musculoskeletal: General: No deformity. Normal range of motion. Right lower leg: No edema. Left lower leg: No edema. Lymphadenopathy: Cervical: No cervical adenopathy. Skin: General: Skin is warm and dry. Coloration: Skin is not jaundiced or pale. Findings: No rash. Neurological: General: No focal deficit present. Mental Status: She is alert and oriented to person, place, and time. Cranial Nerves: No cranial nerve deficit. Sensory: No sensory deficit. Motor: No abnormal muscle tone. Coordination: Coordination normal. Deep Tendon Reflexes: Reflexes normal. Psychiatric: Attention and Perception: Attention and perception normal. Mood and Affect: Mood and affect normal. Speech: Speech normal. Behavior: Behavior normal. Thought Content: Thought content normal. Cognition and Memory: Cognition normal. Judgment: Judgment normal. Last labs: Latest Ref Rng 10/03/2022 04/05/2023 WBC 3.70 - 11.00 k/uL 11.39 (H) RBC 3.90 - 5.20 m/uL 4.90 Hemoglobin 11.5 - 15.5 g/dL 14.8 Hematocrit 36.0 - 46.0 % 44.6 MCV 80.0 - 100.0 fL 91.0 MCH 26.0 - 34.0 pg 30.2 MCHC 30.5 - 36.0 g/dL 33.2 RDW-CV 11.5 - 15.0 % 12.5 Platelet Count 150 - 400 k/uL 292 MPV 9.0 - 12.7 fL 10.6 Neut% % 65.6 Abs Neut (ANC) 1.45 - 7.50 k/uL 7.47 Lymph% % 23.4 Abs Lymph 1.00 - 4.00 k/uL 2.66 Woodruff% % 6.1 Abs Woodruff <0.87 k/uL 0.70 Eosin% % 3.7 Abs Eosin <0.46 k/uL 0.42 Baso% % 0.8 Abs Baso <0.11 k/uL 0.09 Immature Gran % % 0.4 IMMATURE GRANS (ABS) <0.10 k/uL 0.05 NRBC /100 WBC 0.0 Absolute nRBC <0.01 k/uL <0.01 DTYPE Auto Protein, Total 6.3 - 8.0 g/dL 7.2 Albumin 3.9 - 4.9 g/dL 4.1 Calcium 8.5 - 10.2 mg/dL 9.2 Bilirubin, Total 0.2 - 1.3 mg/dL 0.7 Alkaline Phosphatase 34 - 123 U/L 87 AST 13 - 35 U/L 26 ALT 7 - 38 U/L 25 Glucose 74 - 99 mg/dL 91 BUN 7 - 21 mg/dL 7 Creatinine 0.58 - 0.96 mg/dL 0.69 Sodium 136 - 144 mmol/L 139 Potassium 3.7 - 5.1 mmol/L 3.8 Chloride 97 - 105 mmol/L 106 (H) CO2 22 - 30 mmol/L 22 Anion Gap 9 - 18 mmol/L 11 eGFR >=60 mL/min/1.73m 113 Total Cholesterol, Nonfasting <200 mg/dL 180 Triglycerides, Nonfasting <150 mg/dL 113 HDL Cholesterol, Nonfasting >39 mg/dL 42 LDL Cholesterol, Nonfasting <100 mg/dL 115 (H) Non HDL Cholesterol, Nonfasting <130 mg/dL 138 (H) VLDL Cholesterol, Nonfasting <30 mg/dL 23 Total Chol/HDL Ratio, Nonfasting <5.10 mg/dL 4.29 LDL/HDL Ratio, Nonfasting <2.54 mg/dL 2.74 (H) Testosterone Free <0.13 - 0.98 ng/dL 0.59 Testosterone 8 - 60 ng/dL 22 Hemoglobin A1C 4.3 - 5.6 % 5.1 Estimated Average Glucose mg/dL 100 TSH 0.270 - 4.200 mIU/L 2.890 Prolactin 4.5 - 26.8 ng/mL 11.3 DHEA-S 60.9 - 337.0 ug/dL 153.7 Hydroxyprogesterone <=206.00 ng/dL 10.66 FSH See comment mIU/mL 9.6 LH See comment mIU/mL 6.9 Estradiol 17B pg/mL 58 Legend: (H) High The 10-year ASCVD risk score (Brian JOLLEY, et al., 2019) is: 0.9% Values used to calculate the score: Age: 39 years Sex: Female Is Non- : No Diabetic: No Tobacco smoker: No Systolic Blood Pressure: 132 mmHg Is BP treated: No HDL Cholesterol: 42 mg/dL Total Cholesterol: 180 mg/dL Assessment and Plan # Routine medical exam (Z00.00) - Comprehensive evaluation performed. - Discussed various health concerns including eustachian tube dysfunction, chest pain, obesity, sleepiness, and hypertension. - Addressed family history of cancer and current stressors. # Dysfunction of left eustachian tube (H69.92) - Symptoms improved with Flonase; advised to continue use. - Discussed use of Afrin before flights to prevent congestion. - Recommended earplanes to help equalize pressure during flights. - Advised against Sudafed due to potential blood pressure elevation. # Atypical chest pain (R07.89) - Previous ER visit in February ruled out myocardial infarction; labs and EKG were normal. - Discussed stress management techniques. # Class 3 severe obesity due to excess calories with body mass index (BMI) of 45.0 to 49.9 in adult, unspecified whether serious comorbidity present (HCC) (E66.813) - Current weight 280 lbs, BMI 45.5. - Patient has lost 9 lbs over the summer with consistent exercise and dietary modifications. - Discussed dietary changes to increase protein intake and reduce carbohydrates. - Referred to CHRIS Solorzano for weight management and potential medication options. - Ordered home sleep study to evaluate for sleep apnea. # Excessive daytime sleepiness (G47.19) - Ordered home sleep study to evaluate for sleep apnea. - Discussed potential impact of sleep quality on weight management and overall health. # Primary hypertension (I10) - Blood pressure readings at home range from 110-120 mmHg; office readings slightly elevated at 130s mmHg. - Discussed potential white coat syndrome. - Advised to continue monitoring blood pressure at home. # Encounter for immunization (Z23) - Administered flu shot. # Screening for depression (Z13.31) - Screening completed; no signs of depression noted. # Encounter for screening examination for other mental health and behavioral disorders (Z13.39) - Discussed anxiety and stress related to family health issues. - Consideration of medication for anxiety if symptoms persist. Encounter Diagnosis ICD-10-CM 1. Routine medical exam Z00.00 2. Dysfunction of left eustachian tube H69.92 3. Atypical chest pain R07.89 4. Class 3 severe obesity due to excess calories with body mass index (BMI) of 45.0 to 49.9 in adult, unspecified whether serious comorbidity present (HCC) E66.01 HOME SLEEP APNEA TEST (HSAT) Z68.42 COMPREHENSIVE METABOLIC PANEL HEMOGLOBIN A1C COMPLETE BLOOD COUNT LIPID PANEL BASIC 5. Excessive daytime sleepiness G47.19 HOME SLEEP APNEA TEST (HSAT) 6. White coat syndrome with ?HTN I10 HOME SLEEP APNEA TEST (HSAT) COMPREHENSIVE METABOLIC PANEL COMPLETE BLOOD COUNT LIPID PANEL BASIC With white coat syndrome. Home BPs 110 to 120s. 7. Encounter for immunization Z23 INFLUENZA VACCINE, AGE 6MO-64YR, TRIVALENT (AFLURIA, FLULAVAL, FLUVIRIN, FLUZONE) 8. Screening for depression Z13.31 DEPRESSION SCREENING 9. Encounter for screening examination for other mental health and behavioral disorders Z13.39 ANXIETY SCREENING Bronson Medrano MD documented in this encounter [facility] 08-13-2024 Note HNO ID: [id number] Author: BRONSON MEDRANO MD Service: ? Author Type: Physician Type: Progress Notes Filed: 09/22/2024 18:12 Note Text: This note was created using NoteWriter. Subjective Bee Church is a 39 year old female. HISTORY Bee Church is a 39 year old lady here for yearly exam and follow up appointment. She follows with [facility]. The patient is a 39-year-old female with a history of PCOS, presenting with concerns about ear pressure, weight management, and anxiety. The patient reports experiencing ear pressure and discomfort since March, described as a painful, twingy, poppy sensation, similar to the feeling of being on an airplane. This sensation has evolved into a constant tinny sound, which has improved but not completely resolved. She was evaluated in March and was advised that the symptoms would resolve on their own. She was prescribed a steroid, which she did not use due to concerns about potential side effects on blood pressure and blood glucose levels. She did use Flonase, which alleviated some symptoms. She denies current nasal congestion but reports occasional pressure changes related to weather and allergies. She expresses concern about an upcoming flight on Monday. The patient also reports a history of chest pain in February, for which she was evaluated in the ER. She was told the chest pain was likely due to stress and was advised to de-stress. She continues to experience occasional chest pain when feeling overwhelmed. The patient has a significant family history of cancer, including two sisters with breast cancer (one with metastasis to the liver and bones), a maternal aunt with breast cancer, and a grandmother with pancreatic cancer. She is concerned about her own risk and has been advised to update her medical records accordingly. The patient has been diagnosed with PCOS and reports symptoms of hair loss and hirsutism. She has been unable to lose weight despite regular aerobic exercise (30-45 minutes, 5-6 days a week) and a healthy diet. She has been trying to lose weight for three years without success. She reports a weight plateau at 280 lbs, despite losing 9 lbs over the summer. She follows a diet low in processed foods, high in fruits, vegetables, and whole grains, and avoids sugary drinks. She monitors her blood glucose levels and reports morning readings of 120 mg/dL, with postprandial readings never exceeding 140 mg/dL. She also monitors her blood pressure, which she reports as occasionally reaching 135/80 mmHg, but usually around 120/80 mmHg. The patient has been using a Mirena IUD for contraception and reports irregular spotting. She expresses a desire to have the IUD removed due to concerns about weight gain and anxiety, which she attributes to the IUD. She reports gaining 90 lbs in one year after the IUD was placed. The patient reports poor sleep quality, which she attributes to stress and anxiety, as well as her [id number]-spt daughter's separation anxiety at night. She denies symptoms of sleep apnea, such as snoring or observed apneas. She reports daytime fatigue and low energy levels. The patient reports high levels of stress and anxiety, which she attributes to her sister's cancer diagnosis and her own health concerns. She denies feelings of depression but reports feeling overwhelmed. She has not been on medication for anxiety or depression but is considering it. She reports drinking alcohol socially, with no more than 1-2 drinks per occasion, and denies ever consuming six or more drinks on one occasion. No past medical history on file. Current Outpatient Medications Medication Sig fluticasone (FLONASE) 50 mcg/actuation nasal spray Use 2 Sprays in each nostril once daily. Rinse mouth after use. levonorgestrel (MIRENA) 20 mcg/24 hours (7 yrs) 52 mg IUD 1 Each by INTRAUTERINE route one time only. No current facility-administered medications for this visit. ALLERGIES Allergen Reactions Seasonal Allergies Other: See Comments Shellfish Containin* Vomiting FAMILY HISTORY Problem Relation Age of Onset other (brain tumor) Mother other (heart murmur) Sister Drug abuse Sister other (lung ca) Sister Social History Tobacco Use Smoking status: Never Smokeless tobacco: Never Vaping Use Vaping status: Never Used Substance Use Topics Alcohol use: Not Currently Comment: socially Drug use: Never Review of Systems Objective BP 138/104 Pulse 89 Temp 37 ?C (98.6 ?F) Resp 16 Ht 162 cm (5' 3.78) Wt 127.8 kg (281 lb 12 oz) LMP (LMP Unknown) SpO2 97% BMI 48.70 kg/m? Last 5 Encounter Wt Readings: Date: Wt: 08/13/2024 127.8 kg (281 lb 12 oz) 04/16/2024 131.3 kg (289 lb 7.4 oz) 01/26/2024 131.7 kg (290 lb 6.4 oz) 07/14/2023 127.9 kg (282 lb) 06/13/2023 129.3 kg (285 lb) No waist measurement recorded Estimated body mass index is 48.7 kg/m? as calculated from the following: Height as (more content not included)... [facility] 06-07-2024 Note HNO ID: [id number] Author: TERE LEMA APRN.AKANKSHA Service: ? Author Type: Nurse Practitioner Type: Progress Notes Filed: 06/07/2024 11:32 Note Text: Telemedicine Visit - Distance Health Virtual Visit Note Patient seen on [employer] Video Visit platform. Location of patient: [place] I have communicated my name and active licensure. The patient's identity and physical location were verified at the time of this visit. Either the patient or their legal customer sales representative has been informed of the risks and benefits of -- and alternatives to -- treatment through a remote evaluation and consents to proceed with the evaluation remotely. Cc: infected earring spot History of Present Illness Bee Church is a 39 year old year old female who presents for the past 1 day(s) with symptoms that are: Constant Reports pain and swelling and drainage at earring spot right ear cartilage of pinna. Symptoms started yesterday. Ear piercing is at least a year old. She intends to let the hole close up. Review of Systems Constitutional: Negative for chills and fever. HENT: Positive for ear pain (right pinna near remote ear piercing). Negative for congestion, sinus pain and sore throat. Respiratory: Negative for cough, shortness of breath and wheezing. Skin: See hpi No past medical history on file. PAST SURGICAL HISTORY Procedure Laterality Date D AND C MIRENA IUD 02/2018 FAMILY HISTORY Problem Relation Age of Onset other (brain tumor) Mother other (heart murmur) Sister Drug abuse Sister other (lung ca) Sister Social History Tobacco Use Smoking status: Never Smokeless tobacco: Never Vaping Use Vaping Use: Never used Substance Use Topics Alcohol use: Not Currently Comment: socially Drug use: Never Current Outpatient Medications Medication Sig mupirocin (BACTROBAN) 2 % ointment Apply to affected area three times a day for 5 days. amoxicillin-clavulanate potassium (AUGMENTIN) 875-125 mg per tablet Take 1 tablet by mouth two times a day for 5 days. Take with food fluticasone (FLONASE) 50 mcg/actuation nasal spray Use 2 Sprays in each nostril once daily. Rinse mouth after use. levonorgestrel (MIRENA) 20 mcg/24 hours (7 yrs) 52 mg IUD 1 Each by INTRAUTERINE route one time only. No current facility-administered medications for this visit. ALLERGIES Allergen Reactions Seasonal Allergies Other: See Comments Shellfish Containin* Vomiting Video Exam (Examination performed via Video enabled technology) Patient reported VS: none Physical Exam Constitutional: General: She is not in acute distress. Appearance: Normal appearance. She is not ill-appearing, toxic-appearing or diaphoretic. HENT: Ears: Comments: There is tenderness with self palpation right ear cartilage of pinna There is erythema and mild swelling Scant amt. Dried drainage present. No active bleeding. Mouth/Throat: Mouth: Mucous membranes are moist. Eyes: Conjunctiva/sclera: Conjunctivae normal. Pulmonary: Effort: Pulmonary effort is normal. No respiratory distress. Neurological: Mental Status: She is alert and oriented to person, place, and time. ASSESSMENT/PLAN: 1. Pierced ear infection, right, initial encounter - ICD9: 958.3, ICD10: S01.331A, L08.9 - Begin treatment with augmentin and mupirocing -Wound care -follow up prn - Red flags discussed for need for in person care - All questions answered Pt. Instructions: Remove the earring. Tylenol and/or ibuprofen for pain /fever Gently cleanse skin twice daily with mild soap and water. Then apply topical antibiotic ointment (mupirocin) Augmentin as prescribed. Observe for fever, chills, increased redness, red streaks leading away from the area, increaed swelling or more fluid beneath the skin. If this happens go to urgent care or ED. Follow up with your doctor as needed Tere Lema APRN.BEVERAGE HOST If you let us know who your primary care provider is, we will send them a notification of today's visit through our electronic medical records system. Since not all providers have access to our notifications, we strongly encourage you to share the following record of today's visit with your primary care provider at your next visit. This will help in providing you the best care. If you do not have an established Primary Care physician and would like to continue care with a [facility] Virtual Primary Care physician, please ask your provider to place a Establish Primary Care order. Use [employer] to manage your care, wherever you are, 19/06, on your mobile device or computer. [employer] connects you to MyChart? so you can access all your health information in one place and also schedule and request virtual appointments with primary care providers. [facility] 06-07-2024 History of Present illness Narrative Telemedicine Visit - Distance Health Virtual Visit Note Patient seen on [employer] Z[employer] Video Visit platform. Location of patient: [place] I have communicated my name and active licensure. The patient's identity and physical location were verified at the time of this visit. Either the patient or their legal customer sales representative has been informed of the risks and benefits of -- and alternatives to -- treatment through a remote evaluation and consents to proceed with the evaluation remotely. Cc: infected earring spot History of Present Illness Bee Church is a 39 year old year old female who presents for the past 1 day(s) with symptoms that are: Constant Reports pain and swelling and drainage at earring spot right ear cartilage of pinna. Symptoms started yesterday. Ear piercing is at least a year old. She intends to let the hole close up. Review of Systems Constitutional: Negative for chills and fever. HENT: Positive for ear pain (right pinna near remote ear piercing). Negative for congestion, sinus pain and sore throat. Respiratory: Negative for cough, shortness of breath and wheezing. Skin: See hpi No past medical history on file. PAST SURGICAL HISTORY Procedure Laterality Date D AND C MIRENA IUD 02/2018 FAMILY HISTORY Problem Relation Age of Onset other (brain tumor) Mother other (heart murmur) Sister Drug abuse Sister other (lung ca) Sister Social History Tobacco Use Smoking status: Never Smokeless tobacco: Never Vaping Use Vaping Use: Never used Substance Use Topics Alcohol use: Not Currently Comment: socially Drug use: Never Current Outpatient Medications Medication Sig mupirocin (BACTROBAN) 2 % ointment Apply to affected area three times a day for 5 days. amoxicillin-clavulanate potassium (AUGMENTIN) 875-125 mg per tablet Take 1 tablet by mouth two times a day for 5 days. Take with food fluticasone (FLONASE) 50 mcg/actuation nasal spray Use 2 Sprays in each nostril once daily. Rinse mouth after use. levonorgestrel (MIRENA) 20 mcg/24 hours (7 yrs) 52 mg IUD 1 Each by INTRAUTERINE route one time only. No current facility-administered medications for this visit. ALLERGIES Allergen Reactions Seasonal Allergies Other: See Comments Shellfish Containin* Vomiting Video Exam (Examination performed via Video enabled technology) Patient reported VS: none Physical Exam Constitutional: General: She is not in acute distress. Appearance: Normal appearance. She is not ill-appearing, toxic-appearing or diaphoretic. HENT: Ears: Comments: There is tenderness with self palpation right ear cartilage of pinna There is erythema and mild swelling Scant amt. Dried drainage present. No active bleeding. Mouth/Throat: Mouth: Mucous membranes are moist. Eyes: Conjunctiva/sclera: Conjunctivae normal. Pulmonary: Effort: Pulmonary effort is normal. No respiratory distress. Neurological: Mental Status: She is alert and oriented to person, place, and time. ASSESSMENT/PLAN: 1. Pierced ear infection, right, initial encounter - ICD9: 958.3, ICD10: S01.331A, L08.9 - Begin treatment with augmentin and mupirocing -Wound care -follow up prn - Red flags discussed for need for in person care - All questions answered Pt. Instructions: Remove the earring. Tylenol and/or ibuprofen for pain /fever Gently cleanse skin twice daily with mild soap and water. Then apply topical antibiotic ointment (mupirocin) Augmentin as prescribed. Observe for fever, chills, increased redness, red streaks leading away from the area, increaed swelling or more fluid beneath the skin. If this happens go to urgent care or ED. Follow up with your doctor as needed Tere Lema APRN.BEVERAGE HOST If you let us know who your primary care provider is, we will send them a notification of today's visit through our electronic medical records system. Since not all providers have access to our notifications, we strongly encourage you to share the following record of today's visit with your primary care provider at your next visit. This will help in providing you the best care. If you do not have an established Primary Care physician and would like to continue care with a [facility] Primary Care physician, please ask your provider to place a Establish Primary Care order. Use [employer] to manage your care, wherever you are, 19/06, on your mobile device or computer. [facility] connects you to [employer] so you can access all your health information in one place and also schedule and request virtual appointments with primary care providers. documented in this encounter [facility] 06-07-2024 Instructions Tere Lema APRN.CNP - 06/07/2024 11:23 AM EDT Remove the earring. Tylenol and/or ibuprofen for pain /fever Gently cleanse skin twice daily with mild soap and water. Then apply topical antibiotic ointment (mupirocin) Augmentin as prescribed. Observe for fever, chills, increased redness, red streaks leading away from the area, increaed swelling or more fluid beneath the skin. If this happens go to urgent care or ED. Follow up with your doctor as needed documented in this encounter [facility] 04-16-2024 History of Present illness Narrative Subjective HPI HPI Bee Church is a 39 year old female who presents today for CC of left ear pain/pressure, decrease in hearing. This started 3 weeks ago after a cold. Has tried otc medication for relief. Symptoms are worsened by nothing. Nonsmoker. Denies possibility of being . .Patient presents with: Ear Problem: left ear muffled and pain x 3 weeks off and on No past medical history on file. PAST SURGICAL HISTORY Procedure Laterality Date D AND C MIRENA IUD 02/2018 ALLERGIES Seasonal Allergies and Shellfish Containing Products MEDICATIONS levonorgestrel (MIRENA) 20 mcg/24 hours (7 yrs) 52 mg IUD 1 Each by INTRAUTERINE route one time only. fluticasone (FLONASE) 50 mcg/actuation nasal spray Use 2 Sprays in each nostril once daily. Rinse mouth after use. predniSONE (DELTASONE) 10 mg tablet Take 4 tabs daily x 3 days, then 3 tabs x 3 days, 2 tabs x 3 days, then 1 tab x3 days with food. FAMILY HISTORY Problem Relation Age of Onset other (brain tumor) Mother other (heart murmur) Sister Drug abuse Sister other (lung ca) Sister Social History Tobacco Use Smoking status: Never Smokeless tobacco: Never Vaping Use Vaping Use: Never used Substance Use Topics Alcohol use: Not Currently Comment: socially Drug use: Never ROS Objective Blood pressure 132/80, pulse 98, temperature 36.7 C (98 F), resp. rate 16, weight 131.3 kg (289 lb 7.4 oz), SpO2 98%. Physical Exam Constitutional: General: She is not in acute distress. Appearance: She is not toxic-appearing or diaphoretic. HENT: Head: Normocephalic and atraumatic. Right Ear: Hearing, tympanic membrane, ear canal and external ear normal. Left Ear: Hearing, tympanic membrane, ear canal and external ear normal. Nose: Nose normal. Mouth/Throat: Lips: [place]. Mouth: Mucous membranes are moist. Pulmonary: Effort: Pulmonary effort is normal. No accessory muscle usage or respiratory distress. Lymphadenopathy: Cervical: No cervical adenopathy. Right cervical: No superficial cervical adenopathy. Left cervical: No superficial cervical adenopathy. Neurological: Mental Status: She is alert and oriented to person, place, and time. ASSESSMENT/PLAN: 1. ETD (Eustachian tube dysfunction), left - ICD9: 381.81, ICD10: H69.92 -use medication as prescribed -follow up if symptoms persist, worsen, change - with ENT - FLUTICASONE PROPIONATE 50 MCG/ACTUATION NASAL SPRAY,SUSPENSION - PREDNISONE 10 MG TABLET Maurice Dodge APRN.BEVERAGE HOST documented in this encounter [facility] 03-06-2024 Discharge summary Note Date/Time March 06, 2024 3:11pm [facility] Medical Records Department [address] [place] [address] Emergency Department Summary 03/06/24 MR#: [id number] Acct: [id number] Name: BEE CHURCH Rep #:[id number] : 1985 39 From: Tod Boyd MD PCP: Dr. Bronson Medrano MD Status:RE G ER Location: ED HPI History of Present Illness Chief Complaint: Chest Pain Narrative Narrative: 39-year-old female who denies significant past medical history presents with left-sided chest pain that she has had since yesterday evening around 10 PM. She does state that she believes she has a diagnosis of irritable bowel syndrome, and may have had indigestion previously, but it never affects her chest. She states her pain which is hard for her to describe, is on the left side underneath her breast. She denies any fevers or chills, no cough, no nausea or vomiting, no diaphoresis. Pain is not pleuritic. No real exacerbating or alleviating factors. She denies any leg swelling. Of note, shedoes have a Mirena in place is a form of control. She states that lasted for few hours yesterday evening, then went away, and then when she woke up this morning, it had returned. Currently, she states she does not really feel any pain or pressure. [facility] Medical History (Updated 03/06/24 @ 17:57 by Tod Boyd MD) Miscarriage Home Medications hydrocodone-acetaminophen 5-325mg 5mg-325mg 1 tab PO Q6H PRN PRN Pain 5 days #15tabs 06/14/18 [Rx Last Taken Unknown] Allergy/AdvReac Type Severity Reaction Status Date / Time shellfish derived Allergy Vomiting Verified 03/06/24 14:19 Family History Grandmother Diabetes Mother Cancer Brain Tumor Surgical History (Updated 03/06/24 @ 15:17 by Essie Jc) History of cholecystectomy Social History Smoking Status: Never smoker alcohol intake: never substance use type: does not use caffeine: Yes frequency: 3-4 times per week seatbelt use: always do you feel safe at home: Yes additional social history: Brian- ROS ROS ED ROS Narrative Constitutional: No fever, no chills. HEENT: No sore throat. No neck pain. No loss of vision. No rhinorrhea. Cardiovascular: Left-sided chest pain. No palpitations. No pedal edema. Respiratory: No cough, no shortness of breath. Abdominal: No abdominal pain. No nausea. No vomiting. Genitourinary: No dysuria. No hematuria. Musculoskeletal: No myalgias. No arthralgias. Neurologic: No headaches. No dizziness. No lightheadedness. Skin: No rash. No change in color. Psychiatric: No depression. No anxiety. EXAM Physical Exam Narrative Exam Narrative: Afebrile. Vital signs noted. HEENT: Normocephalic. Atraumatic. PERRL, EOMI. Neck soft and supple. No pointtenderness or step off. Cardiovascular: Regular rate and rhythm. No murmurs, rubs, or gallops appreciated. Respiratory: No tachypnea. Lungs clear to auscultation bilaterally. Gastrointestinal: Abdomen soft, nontender, with normoactive bowel sounds. No rebound or guarding. Neurological: Awake. Alert. Nonfocal, nonlateralizing. Skin: No rash. Normal color. No pallor. Musculoskeletal: No pedal edema. Full range of motion extremities. Const Vital Signs: 03/06/24 14:17 03/06/24 15:15 03/06/24 15:15 Temperature 96.9 F L Temperature Source Temporal Pulse Rate 82 Respiratory Rate 18 Respiratory Pattern Normal Blood Pressure 152/94 H Blood Pressure Mean 113 Pulse Ox 96 Oxygen Delivery Method Room Air Room Air 03/06/24 15:17 03/06/24 16:00 03/06/24 17:00 Temperature Temperature Source Pulse Rate 77 81 79 Respiratory Rate 14 17 16 Respiratory Pattern Blood Pressure 166/69 H 154/85 H 138/84 H Blood Pressure Mean 101 104 102 Pulse Ox 97 94 98 Oxygen Delivery Method Room Air Room Air 03/06/24 18:00 03/06/24 18:00 Temperature 98.7 F Temperature Source Pulse Rate 79 79 Respiratory Rate 6 L 16 Respiratory Pattern Blood Pressure 128/80 H 128/80 H Blood Pressure Mean 96 96 Pulse Ox 97 97 Oxygen Delivery Method Room Air Heart Score History: Slightly/Non-Suspicious ECG: Normal Age: </= 45 years Risk Factors: No Risk Factors Score: 0 MDM MDM MDM Narrative Medical decision making narrative: In the differential diagnosis is ACS versus pneumonia versus pneumothorax versuspulmonary embolism. History and physical does not support pneumonia as she is not febrile. Additionally, does not support pneumothorax. EKG was obtained andinterpreted by myself independently as normal sinus rhythm at 75 bpm without ectopy or acute ST changes. No STEMI. I reviewed her laboratory work and she has an elevated white count of 14.7 which I think is nonspecific, but appears chronic when compared to prior laboratories. Hemoglobin hemoconcentrated at 16.2. Hematocrit is 47.7 with normal platelet count of 280. D-dimer is negative at 0.32, I do not feel that she has a pulmonary embolism. I reviewed her basic metabolic panel and she has a chloride of 108 and elevated which I think is nonspecific, glucose appropriately elevated at 129 with anion gap low at 4 so I have low suspicion for diabetic ketoacidosis. Troponin initially is 14 with repeat being 13. I feel she has been ruled out with biomarkers for acute coronary syndrome/ischemia. Chest x-ray in 1 view interpreted by myself independently shows no evidence of pneumothorax or pneumonia. I reviewed the radiology report which confirms my independent interpretation. At this point intime I do not feel that she requires observation. I feel she can be discharged safely home with follow-up to her primary care provider. Return instructions tothe emergency department were reviewed. There may be some anxiety component to her chest discomfort as well. Disposition is discharged home in stable condition. History & Record Review Discussion w/independent historian: Patient and Family Additional record(s) reviewed:: Prior labs Lab Data Attestation: I reviewed the patient's lab results. Labs: Laboratory Results - last 24 hr 03/06/24 03/06/24 03/06/24 14:45 15:20 17:10 WBC 14.7 H RBC 5.29 Hgb 16.2 H Hct 47.7 H MCV 90.2 MCH 30.6 MCHC 34.0 RDW Std Deviation 40.8 RDW Coeff of Richard 12.5 Plt Count 280 MPV 10.3 Immature Gran % (Auto) 1.000 H Neut % (Auto) 69.3 Lymph % (Auto) 21.6 Woodruff % (Auto) 5.1 Eos % (Auto) 2.3 Baso % (Auto) 0.7 Absolute Neuts (auto) 10.2 H Absolute Lymphs (auto) 3.17 Nucleated RBC % 0 D-Dimer Quant (PE/DVT) 0.32 Sodium 137 Potassium 3.7 Chloride 108 H Carbon Dioxide 25.0 Anion Gap 4 L BUN 9 Creatinine 0.86 Estim Creat Clear Calc 114.23 Est GFR (MDRD) Af Amer 94 Est GFR (MDRD) Non-Af 78 BUN/Creatinine Ratio 10.5 Glucose 129 H Calcium 8.8 Troponin I High Sens 14 13 Radiography Diagnostic Testing: Clinical Impression(s) from Imaging Studies Chest X-Ray 03/06/24 15:25 IMPRESSION: Normal x-ray examination of the chest. Electronically Signed: Carlos Stahl MD at 15:40 EDT , Discharge Plan Triage Chief Complaint: Chest Pain ED Provider: Tod Boyd Dx/Rx/DC Orders Clinical Impression: Chest pain Instructions: ED Chest Pain, Uncertain Cause Prescriptions: No Action hydrocodone-acetaminophen 1 TABLET tablet 1 tab PO Q6H PRN PRN (Reason: Pain) 5 Days Qty: 15 0RF Primary Care Provider: Bronson Medrano Referrals: Bronson Medrano MD [Primary Care Provider] - 3-5 Days if not improving Disposition Disposition: Home, Self Care What to do if you have Problems For any increased pain, shortness of breath, bleeding, nausea or vomiting, chestpain, or any unexpected problems, contact your Primary Care Provider. Call [facility] ([phone]) or report to the closest Emergency Room. Call 911 if necessary. 03/06/24 1820 <Electronically signed by Tod Boyd MD> Cosigner Signature (if applicable): CC: Dr. Bronson Medrano MD ~ Signed [facility] Work Phone: 1(361) 315-576203-02-2024 Miscellaneous Notes* Letter - Coordinator, Mammography - 01/27/2024 9:30 AM EST January 29, 2024 PID: [id number] Bee Church [address] [place] [address] Dear Ms. Church, We are pleased to inform you that the results of your recent breast imaging exam on 01/26/2024 are normal. Early detection of cancer is very important. We also understand recommendations regarding breast cancer screening are controversial. Please discuss with your primary care provider which strategy is best for you and whether a mammogram is right for you. Your imaging studies and report will be kept on file at [facility] as part of your permanent medical record and are available for your continuing care. Thank you for allowing us to help in meeting your health care needs. Sincerely, Dr. Reyes Interpreting Radiologist [facility] (Normal over 40) documented in this encounterParma [facility]03-01-[facility]24 History of Present illness Narrative* Johnson Lane MD - 01/26/2024 2:03 PM EST Grain I Farmworker offered: Patient declines. Bee is a 39 year old who presents for an annual gynecologic exam without complaints. Menses: no menses but irregular spotting - Mirena IUD. Contraception: IUD HPV vaccine: No Last Pap: 08/25/2022 normal HPV: 08/20/2022 negative History of abnormal pap: No Last mammogram: today OB History T0 L0 SAB1 IAB0 Ectopic0 Multiple0 Live Births3 Comment: 3 vaginal deliveries 3 daughters Bean Dumper History LMP: LMP Unknown, IUD Age at Menarche: Age at First : Age at Menopause: Bean Dumper History Comments: Sexual Activity: Yes; Male Contraception: I.U.D. No past medical history on file. PAST SURGICAL HISTORY Procedure Laterality Date D AND C FAMILY HISTORY Problem Relation Age of Onset other (brain tumor) Mother other (heart murmur) Sister Drug abuse Sister other (lung ca) Sister SOCIAL HISTORY Social History Tobacco Use Smoking status: Never Smokeless tobacco: Never Vaping Use Vaping Use: Never used Substance Use Topics Alcohol use: Yes Comment: socially Drug use: No REVIEW OF SYSTEMS Abdomen: No abdominal pain, nausea, vomiting, diarrhea, or constipation. No bloating, early satiety, indigestion, or increased flatulence. Bladder: No dysuria, gross hematuria, urinary frequency, urinary urgency, or incontinence. Breast: No breast lumps, overlying skin changes, redness or skin retraction. She reports breast discharge that has been intermittent since 2021. Currently it is more from the right nipple and can be dark. Allergies and current medication updated:Yes EXAM: There were no vitals taken for this visit. GENERAL: pleasant, female in no apparent distress BREAST: soft, non-tender, symmetric, no dominant mass, normal nipple-areolar complex, no lymphadenopathy, and no nipple discharge CHEST: Normal inspiratory effort ABDOMEN: soft, non-tender, and no masses PELVIC: external genitalia normal, normal Bartholin's glands, urethra, [place]'s glands, no vulvar lesions, no cervical lesions, good vaginal support, physiologic discharge present, normal appearing perineal body and perianal region; IUD strings extruding from cervix BIMANUAL: uterus normal size, shape and consistency, no adnexal masses, and non- tender; exam limited by obesity RECTOVAGINAL: deferred. NEURO: alert and oriented x3,exam grossly non-focal EXTREMITIES: normal ASSESSMENT/PLAN: 1) Health maintenance: Pap/HPV up to date. Mammogram today. Nutrition, exercise and routine health maintenance exams reviewed. 2) Contraception: IUD. Contraceptive options reviewed and information provided. Follow up for IUD removal & new IUD placemet d/t increased spotting. 3) Breast discharge - bilateral & intermittent since 2021. Prior imaging negative. Consult to general surgery 4) Follow up one year or sooner as needed 5) Obesity - schedule with weight management 6) Elevated BP - patient reports BP's at home normal & will monitor Johnson Lane MD documented in this encounterPar[facility]03-[facility] History of Present illness Narrative* Ni Jara RT(R) - 01/26/2024 12:50 PM EST Radiology Service Progress Note PATIENT NAME: Bee Church DATE OF SERVICE: January 26, 2024 TIME: 12:54 PM PATIENT IDENTITY VERIFICATION COMPLETED USING TWO (2) IDENTIFIERS: Name and Date of confirmedby patient verbally. FALL SCREENING: Has the patient had 2 falls in the last year or 1 fall with injury or currently using an Ambulatory Assistive Device (Walker, Cane, Wheelchair, Crutches, etc.)? No PATIENT GENDER DATA: Female. status: : No status: NO. PATIENT RELEVANT IMPLANT DATA REVIEWED: Yes PATIENT PRESENTS WITH AN IMPLANTABLE OR ATTACHED TABLE LEVER OPERATOR: No RADIOLOGY DEPARTMENT: Mammography PERIPHERAL IV DATA: Not applicable SIGNED BY: RT Som(R) January 26, 2024 12:54 PM documented in this encounterParma [facility]08-17-2023 Miscellaneous Notes* Telephone Encounter - Johnson Lane MD - 07/13/2023 11:42 AM EDT Please schedule a problem visit. BEVERAGE HOST visit if possible. Johnson Lane MD documented in this encounterParma [facility]07-20-2023 Miscellaneous Notes* Telephone Encounter - Hui Rizzo LPN - 06/15/2023 3:24 PM EDT Patient notified of providers message and verbalized understanding. * Telephone Encounter - Yasmin Syed APRN.CNS - 06/15/2023 3:18 PM EDT No need to change antibiotic. Mixed kim only on culture. If feeling improved on Bactrim take until gone. * Telephone Encounter - Shreya Starr LPN - 06/15/2023 1:01 PM EDT Patient calling she can see urine culture results on her my chart and wanted to know if she needed to change her antibiotic rx? She is currently taking generic bactrim rx. Patient uses [facility] for her pharmacy if needed. Please advise Contains abnormal data URINE CULTURE Order: [id number] Status: Final result Visible to patient: Yes (seen) Dx: Dysuria Specimen Information: URINE-MIDSTREAM CLEAN CATCH; Urine Random 0 Result Notes Culture 10,000 -<50,000 CFU/ml Mixed microbiota Abnormal No further workup. Mixed microbiota can be due to urine contamination with skin bacteria at time ofcollection or presence of a long-term urinary catheter. If a new culture is needed, please considerre-education of the patient on proper midstream collection technique or straight catheterization for urine collection. Streptococcus agalactiae (Group B streptococcus) was identified in this specimen, which is clinically relevant if the individual is . This test was developed and its performance characteristics determined by the [facility]'s [facility] [place] ([facility]). It has not been cleared or approved by the FDA. [facility] is regulated under CLIA as qualified to perform high-complexity testing. This test is used for clinical purposes. It should not be regarded as investigational or for research. Resulting Agency: [facility] documented in this encounterParma Community [facility] Hospital07-18-2023 Miscellaneous Notes* Addendum Note - Yasmin Syed APRN.CNS - 06/13/2023 12:49 PM EDTAddended by: YASMIN SYED on: 06/13/2023 12:49 PM Modules accepted: Orders * Result Encounter Note - Yasmin Syed APRN.CNS - 06/13/2023 12:49 PM EDT Repeat urinalysis 1 month documented in this encounterParma Community [facility] Hospital07-18-2023 History of Present illness Narrative* Yasmin Syed APRN.CNS - 06/13/2023 10:06 AM EDT Patient presents with: Urinary Frequency 38 year old female presents with 1 day(s) of dysuria, frequency, urgency, hematuria, and lower abdominal fullness/pressure. Without report of fever , flank pain located , sweats, nausea, and vomiting. PMH:rare. Review of Systems Constitutional: Negative. Genitourinary: Positive for dysuria, frequency, hematuria and urgency. Physical Exam ASSESSMENT: Uncomplicated UTI PLAN: 1. Dysuria - ICD9: 788.1, ICD10: R30.0 acute - Send urine for culture - Begin treatment with Bactrim DS BID for 3 days; may refill script if not resolved in 3 days for atotal of 6 days treatment - Patient education for prevention given - UA DIP B/O - URINE CULTURE - SULFAMETHOXAZOLE 800 MG-TRIMETHOPRIM 160 MG TABLET Yasmin Syed APRN.CNS Medical Decision Making: Problems: Low: Acute, uncomplicated illness or injury Data: Unique test(s) ordered: 2 Risk: Moderate: Drug management Medical Decision Making Level: 3 - Low documented in this encounterParma [facility] Hospital07-18-2023 Instructions* Patient Instructions* Yasmin Syed APRN.CNS - 06/13/2023 10:06 AM EDT Images from the original note were not included. Urinary Problem-When to Seek Help? Symptoms of a urinary problem may lead to a bladder infection. Women are at greater risk of a urinary tract infection than are men. Most urinary tract infections in women are caused by bacteria and involve the lower urinary tract including the bladder and urethra. Symptoms: Pain or burning when passing urine, urgency, frequency, blood in the urine, difficult emptying your bladder, and lower abdominal fullness or pressure. Common Causes: Sexual intercourse, menopause, constipation, uncontrolled diabetes, dehydration and feminine products such as tampons, and kidney stones. When to Get Help: Seek medical attention if you get frequent bladder infections, urinary concerns such as leakage, blood in the urine or frequent need to urinate. You may be recommended to get help from a specialist, such as a urologist. Diagnosis & Treatment: Lab testing may include: urinalysis, and urine culture that can be collected in the lab or walk-in clinic. Most bladder infections can easily be treated. A physician, nurse practitioner or physician human resources benefits assistant may treat with a short course of an antibiotic. Delaying treatment can lead to worsening symptoms, like a kidney infection. Self-Care: Avoid a full bladder, bubble baths, bath oils, food and beverages that may irritate the bladder such as caffeine. Avoid spermicide foam and diaphragms Void before and after sexual intercourse Wipe front to back after using the bathroom. Stay hydrated Stop Smoking Follow-up Care: Follow up testing is not needed in healthy young women if symptoms resolve. documented in this encounterParma [facility] Hospital07-14-2023 Miscellaneous Notes* Telephone Encounter - Ni Chan RN - 06/09/2023 9:57 AM EDT SpinalMotionhart message was also sent. documented in this encounterParma Community [facility] Hospital05-10-2023 Miscellaneous Notes* Telephone Encounter - Jeanine Muñoz APRN.CNP - 04/05/2023 12:37 PM EDT Please fax referral to Antony Demarco. Thanks * Telephone Encounter - Bronson Medrano MD - 03/29/2023 8:20 PM EDT See Arius Researchhart reply Check with patient tomorrow if needs an appointment. documented in this encounterParma [facility] Hospital05-02-2023 History of Present illness Narrative* Johnson Lane MD - 03/28/2023 10:17 AM EDT Bee Church is a 38 year old female who presents for problem visit. HPI: Patient reports that she is still having bilateral nipple discharge. It is much less than before but still she is having more from the right than the left. It only occurs when she expresses it & even then she has to work to get some out. Denies spontaneous breast discharge. Discharge is clear to white. Denies breast lumps or other breast concerns. Also she reports increased hair loss on her head. She has increased facial hair growth. Patient reports trouble losing weight. She has been walking for 2 years. She has no or light menses with the Mirena IUD. OB History T0 L0 SAB1 IAB0 Ectopic0 Multiple0 Live Births3 Comment: 3 vaginal deliveries 3 daughters Bean Dumper History LMP: 03/04/2023 (Exact Date), IUD Age at Menarche: Age at First : Age at Menopause: Bean Dumper History Comments: Sexual Activity: Yes; Male Contraception: I.U.D. History reviewed. No pertinent past medical history. PAST SURGICAL HISTORY Procedure Laterality Date D AND C FAMILY HISTORY Problem Relation Age of Onset other (brain tumor) Mother other (heart murmur) Sister Drug abuse Sister other (lung ca) Sister Social History Tobacco Use Smoking status: Never Smokeless tobacco: Never Vaping Use Vaping Use: Never used Substance Use Topics Alcohol use: Yes Comment: socially Drug use: No Current Outpatient Medications Medication Sig levonorgestrel (MIRENA) 20 mcg/24 hours (7 yrs) 52 mg IUD 1 Each by INTRAUTERINE route one time only. albuterol HFA (VENTOLIN HFA) 90 mcg/actuation inhaler Inhale 2 Puffs as instructed every 4 hours asneeded for wheezing/shortness of breath. (Patient not taking: Reported on 03/28/2023) fluticasone-salmeterol (ADVAIR DISKUS) 250-50 mcg/dose inhaler Inhale 1 Puff as instructed twice daily. As directed (Patient not taking: Reported on 03/28/2023) scopolamine (TRANSDERM-SCOP) patch 1.5 mg/72 hr (delivers 1 mg over 3 days) Apply 1 Patch as directed every 72 hours. Apply patch to skin behind ear 4hrs prior to travel. (Patient not taking: Reported on 03/28/2023) No current facility-administered medications for this visit. Allergies As of Date: 03/28/2023 Allergen Noted Reaction SEASONAL ALLERGIES 09/21/2021 Other: See Comments SHELLFISH CONTAINING PRODUCTS 06/01/2018 Vomiting Fully Assessed 03/28/2023 RAllergies and current medication updated:Yes EXAM: BP 146/90 Wt 288 lb 3.2 oz (130.7kg) LMP 03/04/2023 GENERAL: pleasant, female in no apparent distress BREAST: soft, non-tender, symmetric, no dominant mass, normal nipple-areolar complex, no lymphadenopathy, and no nipple discharge ASSESSMENT AND PLAN: 38yo female with hirsutism, hair loss, weight gain & nipple discharge Labs & pelvic US ordered Advised on 300 minutes exercise per week and healthy diet. Refer to obesity medicine. Nipple discharge is slowly improving. She has a benign breast exam & negative imaging 08/18. Discussed R/B/A of continued observation vs referral to general surgery. Will proceed with continued observation. If discharge worsens or patient develops other breast concerns will refer her to general surgery. Medical Decision Making: Problems: Moderate: New problem with uncertain prognosis Data: Unique test(s) ordered: 3+ Risk: Low: Low risk from testing/treatment Medical Decision Making Level: 4 - Moderate Johnson Lane MD documented in this encounterParma [facility]12-06-2022 History of Present illness Narrative* Bronson Medrano MD - 11/01/2022 10:21 AM EST This note was created using [email or web address]. Subjective Bee Church is a 37 year old female. HISTORY Bee Church is a 37 year old lady here for yearly exam and follow up appointment. BP at home is fine. Usually 120s over 70s. Occasionally 135 but goes back down. Had COVID last and recently about 2 months ago. Everyone did fine. Walking 3 t0 5 days a week, 35 to 40 minutes. Feeling better. Anxiety really better. Bowels more normal. Probably IBS by history--never constipation since had gallbladder removed. Still with mild cough. Mostly over URI symptoms of COVID. OTC cough meds not effective:robitussin, mucinex. Leaving on cruise this Monday or Monday for anniversary. No past medical history on file. Current Outpatient Medications Medication Sig levonorgestrel (MIRENA) 20 mcg/24 hours (7 yrs) 52 mg IUD 1 Each by INTRAUTERINE route one time only. albuterol HFA (VENTOLIN HFA) 90 mcg/actuation inhaler Inhale 2 Puffs as instructed every 4 hours asneeded for wheezing/shortness of breath. fluticasone-salmeterol (ADVAIR DISKUS) 250-50 mcg/dose inhaler Inhale 1 Puff as instructed twice daily. As directed scopolamine (TRANSDERM-SCOP) patch 1.5 mg/72 hr (delivers 1 mg over 3 days) Apply 1 Patch as directed every 72 hours. Apply patch to skin behind ear 4hrs prior to travel. No current facility-administered medications for this visit. ALLERGIES Allergen Reactions Seasonal Allergies Other: See Comments Shellfish Containin* Vomiting FAMILY HISTORY Problem Relation Age of Onset other (brain tumor) Mother other (heart murmur) Sister Drug abuse Sister other (lung ca) Sister Social History Tobacco Use Smoking status: Never Smokeless tobacco: Never Vaping Use Vaping Use: Never used Substance Use Topics Alcohol use: Yes Comment: socially Drug use: No Review of Systems Objective BP 146/86 Pulse 93 Ht 161.5 cm (5' 3.58) Wt 126.6 kg (279 lb) LMP 08/05/2022 (Exact Date) SpO2 97% BMI 48.52 kg/m Last 5 Encounter Wt Readings: Date: Wt: 10/05/2022 126.6 kg (279 lb) 08/16/2022 127.9 kg (282 lb) 08/08/2022 128.5 kg (283 lb 3.2 oz) 06/21/2022 129.7 kg (286 lb) 03/04/2022 134.6 kg (296 lb 12.8 oz) No waist measurement recorded Estimated body mass index is 48.52 kg/m as calculated from the following: Height as of this encounter: 161.5 cm (5' 3.58). Weight as of this encounter: 126.6 kg (279 lb). Last 5 Encounter BP Readings: Date: BP: 10/05/2022 146/86 08/16/2022 144/92 08/08/2022 138/96 06/21/2022 128/80 03/04/2022 124/88 .vitalsm Physical Exam Vitals reviewed. Constitutional: Appearance: Normal appearance. She is well-developed. She is obese. HENT: Head: Normocephalic and atraumatic. Right Ear: External ear normal. Left Ear: External ear normal. Nose: Nose normal. Eyes: Conjunctiva/sclera: Conjunctivae normal. Neck: Thyroid: No thyromegaly. Cardiovascular: Rate and Rhythm: Normal rate and regular rhythm. Pulses: Normal pulses. Heart sounds: Normal heart sounds. No murmur heard. No friction rub. No gallop. Pulmonary: Effort: Pulmonary effort is normal. Breath sounds: Normal breath sounds. Abdominal: General: Bowel sounds are normal. There is no distension. Palpations: Abdomen is soft. There is no mass. Tenderness: There is no abdominal tenderness. Musculoskeletal: General: No deformity. Normal range of motion. Lymphadenopathy: Cervical: No cervical adenopathy. Skin: General: Skin is warm and dry. Coloration: Skin is not jaundiced or pale. Findings: No rash. Neurological: General: No focal deficit present. Mental Status: She is alert and oriented to person, place, and time. Cranial Nerves: No cranial nerve deficit. Sensory: No sensory deficit. Motor: No abnormal muscle tone. Coordination: Coordination normal. Deep Tendon Reflexes: Reflexes normal. Psychiatric: Attention and Perception: Attention and perception normal. Mood and Affect: Mood and affect normal. Speech: Speech normal. Behavior: Behavior normal. Thought Content: Thought content normal. Cognition and Memory: Cognition and memory normal. Judgment: Judgment normal. Component Latest Ref Rng & Units 09/21/2021 08/08/2022 10/03/2022 WBC 3.70 - 11.00 k/uL 12.32 (H) 11.39 (H) RBC 3.90 - 5.20 m/uL 4.90 4.90 Hemoglobin 11.5 - 15.5 g/dL 14.9 14.8 Hematocrit 36.0 - 46.0 % 47.0 (H) 44.6 MCV 80.0 - 100.0 fL 95.9 91.0 MCH 26.0 - 34.0 pg 30.4 30.2 MCHC 30.5 - 36.0 g/dL 31.7 33.2 RDW-CV 11.5 - 15.0 % 13.0 12.5 Platelet Count 150 - 400 k/uL 265 292 MPV 9.0 - 12.7 fL 10.2 10.6 Neut% % 65.6 Abs Neut (ANC) 1.45 - 7.50 k/uL 7.47 Lymph% % 23.4 Abs Lymph 1.00 - 4.00 k/uL 2.66 Woodruff% % 6.1 Abs Woodruff <0.87 k/uL 0.70 Eosin% % 3.7 Abs Eosin <0.46 k/uL 0.42 Baso% % 0.8 Abs Baso <0.11 k/uL 0.09 Immature Gran % % 0.4 IMMATURE GRANS (ABS) <0.10 k/uL 0.05 NRBC /100 WBC 0.0 Absolute nRBC <0.01 k/uL <0.01 <0.01 DTYPE Auto Protein, Total 6.3 - 8.0 g/dL 7.1 7.3 7.2 Albumin 3.9 - 4.9 g/dL 4.0 4.3 4.1 Calcium 8.5 - 10.2 mg/dL 9.4 9.4 9.2 Bilirubin, Total 0.2 - 1.3 mg/dL 0.5 0.9 0.7 Alkaline Phosphatase 34 - 123 U/L 101 102 87 AST 13 - 35 U/L 31 22 26 Glucose 74 - 99 mg/dL 114 (H) 138 (H) 91 BUN 7 - 21 mg/dL 6 (L) 7 7 Creatinine 0.58 - 0.96 mg/dL 0.74 0.82 0.69 Sodium 136 - 144 mmol/L 138 138 139 Potassium 3.7 - 5.1 mmol/L 3.7 3.9 3.8 Chloride 97 - 105 mmol/L 104 101 106 (H) CO2 22 - 30 mmol/L 21 (L) 22 22 Anion Gap 9 - 18 mmol/L 13 15 11 ALT 7 - 38 U/L 34 25 25 eGFR- >60 eGFR-All Other Races . >60 eGFR >=60 mL/min/1.73m 93 113 Total Cholesterol, Nonfasting <200 mg/dL 189 180 Triglycerides, Nonfasting <150 mg/dL 161 (H) 113 HDL Cholesterol, Nonfasting >39 mg/dL 41 42 LDL Cholesterol, Nonfasting <100 mg/dL 116 (H) 115 (H) Non HDL Cholesterol, Nonfasting <130 mg/dL 148 (H) 138 (H) VLDL Cholesterol, Nonfasting <30 mg/dL 32 (H) 23 Total Chol/HDL Ratio, Nonfasting <5.10 mg/dL 4.61 4.29 LDL/HDL Ratio, Nonfasting <2.54 mg/dL 2.83 (H) 2.74 (H) TSH 0.270 - 4.200 mIU/L 1.720 Assessment and Plan Encounter Diagnosis ICD-10-CM 1. Routine medical exam Z00.00 2. Need for immunization against influenza Z23 INFLUENZA VACCINE QUADRIVALENT 6 MO - 64 YRS IM 3. 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 Class 3 severe obesity due to excess calories without serious comorbidity with body mass index (BMI) of 45.0 to 49.9 in adult ([facility]) E66.01 Z68.42 Above issues addressed with patient. Patient involved in shared decision making for management of medical issues. History and medications reviewed. Epic updated as needed Refills and/or prescriptions taken care of and meds adjusted as indicated after reviewed history, exam and labs. Health Maintenance reviewed. Updated record and/or ordered tests as recorded. Encouraged on efforts at healthy diet and regular exercise and adequate sleep. Needs to keep working on diet and exercise with lifestyle changes for effective weight loss as wellas prevention of DM, and control of BP and lipids. Weight is going down. Monitor BP since SBP >140s. Treat as indicated. Bronson Medrano MD * Bronson Medrano MD - 10/05/2022 5:05 PM EST This note was created using Aspyrater. Subjective Bee Church is a 37 year old female. HISTORY Bee Church is a 37 year old lady here for yearly exam and follow up appointment. BP at home is fine. Usually 120s over 70s. Occasionally 135 but goes back down. Had COVID last and recently about 2 months ago. Everyone did fine. Walking 3 t0 5 days a week, 35 to 40 minutes. Feeling better. Anxiety really better. Bowels more normal. Probably IBS by history--never constipation since had gallbladder removed. Still with mild cough. Mostly over URI symptoms of COVID. OTC cough meds not effective:robitussin, mucinex. Leaving on cruise this Monday or Monday for anniversary. No past medical history on file. Current Outpatient Medications Medication Sig levonorgestrel (MIRENA) 20 mcg/24 hours (7 yrs) 52 mg IUD 1 Each by INTRAUTERINE route one time only. No current facility-administered medications for this visit. ALLERGIES Allergen Reactions Seasonal Allergies Other: See Comments Shellfish Containin* Vomiting FAMILY HISTORY Problem Relation Age of Onset other (brain tumor) Mother other (heart murmur) Sister Drug abuse Sister other (lung ca) Sister Social History Tobacco Use Smoking status: Never Smokeless tobacco: Never Vaping Use Vaping Use: Never used Substance Use Topics Alcohol use: Yes Comment: socially Drug use: No Review of Systems Objective BP 146/86 Pulse 93 Ht 161.5 cm (5' 3.58) Wt 126.6 kg (279 lb) LMP 08/05/2022 (Exact Date) SpO2 97% BMI 48.52 kg/m Last 5 Encounter Wt Readings: Date: Wt: 10/05/2022 126.6 kg (279 lb) 08/16/2022 127.9 kg (282 lb) 08/08/2022 128.5 kg (283 lb 3.2 oz) 06/21/2022 129.7 kg (286 lb) 03/04/2022 134.6 kg (296 lb 12.8 oz) No waist measurement recorded Estimated body mass index is 48.52 kg/m as calculated from the following: Height as of this encounter: 161.5 cm (5' 3.58). Weight as of this encounter: 126.6 kg (279 lb). Last 5 Encounter BP Readings: Date: BP: 10/05/2022 146/86 08/16/2022 144/92 08/08/2022 138/96 06/21/2022 128/80 03/04/2022 124/88 .vitalsm Physical Exam Vitals reviewed. Constitutional: Appearance: Normal appearance. She is well-developed. She is obese. HENT: Head: Normocephalic and atraumatic. Right Ear: External ear normal. Left Ear: External ear normal. Nose: Nose normal. Eyes: Conjunctiva/sclera: Conjunctivae normal. Neck: Thyroid: No thyromegaly. Cardiovascular: Rate and Rhythm: Normal rate and regular rhythm. Pulses: Normal pulses. Heart sounds: Normal heart sounds. No murmur heard. No friction rub. No gallop. Pulmonary: Effort: Pulmonary effort is normal. Breath sounds: Normal breath sounds. Abdominal: General: Bowel sounds are normal. There is no distension. Palpations: Abdomen is soft. There is no mass. Tenderness: There is no abdominal tenderness. Musculoskeletal: General: No deformity. Normal range of motion. Lymphadenopathy: Cervical: No cervical adenopathy. Skin: General: Skin is warm and dry. Coloration: Skin is not jaundiced or pale. Findings: No rash. Neurological: General: No focal deficit present. Mental Status: She is alert and oriented to person, place, and time. Cranial Nerves: No cranial nerve deficit. Sensory: No sensory deficit. Motor: No abnormal muscle tone. Coordination: Coordination normal. Deep Tendon Reflexes: Reflexes normal. Psychiatric: Attention and Perception: Attention and perception normal. Mood and Affect: Mood and affect normal. Speech: Speech normal. Behavior: Behavior normal. Thought Content: Thought content normal. Cognition and Memory: Cognition and memory normal. Judgment: Judgment normal. Component Latest Ref Rng & Units 09/21/2021 08/08/2022 10/03/2022 WBC 3.70 - 11.00 k/uL 12.32 (H) 11.39 (H) RBC 3.90 - 5.20 m/uL 4.90 4.90 Hemoglobin 11.5 - 15.5 g/dL 14.9 14.8 Hematocrit 36.0 - 46.0 % 47.0 (H) 44.6 MCV 80.0 - 100.0 fL 95.9 91.0 MCH 26.0 - 34.0 pg 30.4 30.2 MCHC 30.5 - 36.0 g/dL 31.7 33.2 RDW-CV 11.5 - 15.0 % 13.0 12.5 Platelet Count 150 - 400 k/uL 265 292 MPV 9.0 - 12.7 fL 10.2 10.6 Neut% % 65.6 Abs Neut (ANC) 1.45 - 7.50 k/uL 7.47 Lymph% % 23.4 Abs Lymph 1.00 - 4.00 k/uL 2.66 Woodruff% % 6.1 Abs Woodruff <0.87 k/uL 0.70 Eosin% % 3.7 Abs Eosin <0.46 k/uL 0.42 Baso% % 0.8 Abs Baso <0.11 k/uL 0.09 Immature Gran % % 0.4 IMMATURE GRANS (ABS) <0.10 k/uL 0.05 NRBC /100 WBC 0.0 Absolute nRBC <0.01 k/uL <0.01 <0.01 DTYPE Auto Protein, Total 6.3 - 8.0 g/dL 7.1 7.3 7.2 Albumin 3.9 - 4.9 g/dL 4.0 4.3 4.1 Calcium 8.5 - 10.2 mg/dL 9.4 9.4 9.2 Bilirubin, Total 0.2 - 1.3 mg/dL 0.5 0.9 0.7 Alkaline Phosphatase 34 - 123 U/L 101 102 87 AST 13 - 35 U/L 31 22 26 Glucose 74 - 99 mg/dL 114 (H) 138 (H) 91 BUN 7 - 21 mg/dL 6 (L) 7 7 Creatinine 0.58 - 0.96 mg/dL 0.74 0.82 0.69 Sodium 136 - 144 mmol/L 138 138 139 Potassium 3.7 - 5.1 mmol/L 3.7 3.9 3.8 Chloride 97 - 105 mmol/L 104 101 106 (H) CO2 22 - 30 mmol/L 21 (L) 22 22 Anion Gap 9 - 18 mmol/L 13 15 11 ALT 7 - 38 U/L 34 25 25 eGFR- >60 eGFR-All Other Races . >60 eGFR >=60 mL/min/1.73m 93 113 Total Cholesterol, Nonfasting <200 mg/dL 189 180 Triglycerides, Nonfasting <150 mg/dL 161 (H) 113 HDL Cholesterol, Nonfasting >39 mg/dL 41 42 LDL Cholesterol, Nonfasting <100 mg/dL 116 (H) 115 (H) Non HDL Cholesterol, Nonfasting <130 mg/dL 148 (H) 138 (H) VLDL Cholesterol, Nonfasting <30 mg/dL 32 (H) 23 Total Chol/HDL Ratio, Nonfasting <5.10 mg/dL 4.61 4.29 LDL/HDL Ratio, Nonfasting <2.54 mg/dL 2.83 (H) 2.74 (H) TSH 0.270 - 4.200 mIU/L 1.720 Assessment and Plan Encounter Diagnosis ICD-10-CM 1. Routine medical exam Z00.00 2. Need for immunization against influenza Z23 INFLUENZA VACCINE QUADRIVALENT 6 MO - 64 YRS IM 3. 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 Class 3 severe obesity due to excess calories without serious comorbidity with body mass index (BMI) of 45.0 to 49.9 in adult ([facility]) E66.01 Z68.42 Above issues addressed with patient. Patient involved in shared decision making for management of medical issues. History and medications reviewed. Epic updated as needed Refills and/or prescriptions taken care of and meds adjusted as indicated after reviewed history, exam and labs. Health Maintenance reviewed. Updated record and/or ordered tests as recorded. Encouraged on efforts at healthy diet and regular exercise and adequate sleep. Needs to keep working on diet and exercise with lifestyle changes for effective weight loss as wellas prevention of DM, and control of BP and lipids. Weight is going down. Monitor BP since SBP >140s. Treat as indicated. Bronson Medrano MD documented in [facility]22 Miscellaneous Notes* Telephone Encounter - Yasmin Syed APRN.CNS - 09/29/2022 4:59 PM EDT ok * Telephone Encounter - Brea Payne RN - 09/29/2022 10:59 AM EDT Patient calls to report that she is unable to make it in for fasting labs prior to her 10/05/[address] Medrano. Patient asking if she could have a non-fasting lipid panel done instead? Pended with diagnosis from non-fasting order for review. Call patient at [phone] with provider response. Brea Payne RN documented in this encounterPar[facility]10-26-2022 Miscellaneous Notes* Telephone Encounter - Olivia Abarca Ma - 09/21/2022 12:19 PM EDT Can you order so patient can have done prior to October 05 appointment ? documented in this encounterPar[facility]09-21-2022 Miscellaneous Notes* Telephone Encounter - Dayana Herron LPN - 08/17/2022 10:32 AM EDT Patient notified of results, verbalizes understanding of instructions. Dayana Herron LPN * Telephone Encounter - Maren Kemp APRN.CNP - 08/17/2022 7:43 AM EDT Please call patient and let her know her ultrasound shows there is 5 mm focal asymmetry in the right breast is consistent with a cyst and is benign. There is no abnormality seen in either breast to correspond with the discharge from the nipple. With normal labs no further testing at this time. If persists follow-up with PCP or SENIOR ACCOUNTING ASSOCIATE. Maren Kemp APRN.AKANKSHA documented in this encounterParma [facility]09-20-2022 Instructions* Patient Instructions* Johnson Lane MD - 08/16/2022 2:59 PM EDT Minimizing irritation of the vulva (area around the vagina) Wear white cotton underwear. Avoid synthetic fabrics and tight clothing. Sleep wearing shorts or pajama bottoms without underwear. Shower as soon as possible after exercise. Avoid clothing detergents and soaps with perfumes or dyes. Use warm (not hot) water to wash the vulva and if you use soap use a product designed for sensitive skin (like Dove or Cetaphil). Do not douche or use creams/powders in the vulvar area unless instructed by your physician. If you must douche, use only plain warm water. Make sure the vulva is dry before dressing by patting dry with a towel. Avoid vigorous rubbing withthe towel. You may want to use the blow dryer (on the cool setting only!) on the vulva. The most important way to let your body heal is by avoiding scratching. Many patients find it difficult to avoid scratching at night when they are most aware of the itchiness. You can try taking Benadryl just before bedtime. Some women find it helpful to wear cotton gloves to bed to avoid scratching at night. documented in this encounterPar[facility]09-20-2022 History of Present illness Narrative* Cecily Plunkett RDMS - 08/16/2022 2:00 PM EDT Radiology Service Progress Note PATIENT NAME: Bee Church DATE OF SERVICE: August 16, 2022 TIME: 2:35 PM PATIENT IDENTITY VERIFICATION COMPLETED USING TWO (2) IDENTIFIERS: Name and Date of confirmedby patient verbally. FALL SCREENING: Has the patient had 2 falls in the last year or 1 fall with injury or currently using an Ambulatory Assistive Device (Walker, Cane, Wheelchair, Crutches, etc.)? No PATIENT GENDER DATA: Female. status: : No status: NO. PATIENT RELEVANT IMPLANT DATA REVIEWED: Not Applicable RADIOLOGY DEPARTMENT: Ultrasound PERIPHERAL IV DATA: Not applicable SIGNED BY: Cecily Plunkett RDMS RVT August 16, 2022 2:35 PM documented in this encounterParma [facility]09-20-2022 History of Present illness Narrative* Johnson Lane MD - 08/16/2022 1:39 PM EDT Bee is a 37 year old who presents for an annual gynecologic exam. Menses: no menses - Mirena IUD. Contraception: IUD HPV vaccine: No Last Pap: 2-3 years ago at [place] History of abnormal pap: No Last mammogram: today OB History T0 L3 - all daughters SAB1 IAB0 Ectopic0 Multiple0 Live Births3 Bean Dumper History LMP: 08/05/2022 (Exact Date), IUD Age at Menarche: Age at First : Age at Menopause: Bean Dumper History Comments: Sexual Activity: Yes; Male Contraception: I.U.D. History reviewed. No pertinent past medical history. PAST SURGICAL HISTORY Procedure Laterality Date D AND C FAMILY HISTORY Problem Relation Age of Onset other (brain tumor) Mother other (heart murmur) Sister Drug abuse Sister other (lung ca) Sister SOCIAL HISTORY Social History Tobacco Use Smoking status: Never Smokeless tobacco: Never Vaping Use Vaping Use: Never used Substance Use Topics Alcohol use: Yes Comment: socially Drug use: No REVIEW OF SYSTEMS Abdomen: No abdominal pain, nausea, vomiting, diarrhea, or constipation. No bloating, early satiety, indigestion, or increased flatulence. Bladder: No dysuria, gross hematuria, urinary frequency, urinary urgency, or incontinence. Breast: No breast lumps, , overlying skin changes, redness or skin retraction and Nipple discharge -it is decreasing in amount per patient. It is right mostly from the right nipple but a little from left nipple- had diagnostic imaging today. Allergies and current medication updated:Yes EXAM: BP 144/92 Ht 5' 3.583 (1.62m) Wt 282 lb (127.9kg) LMP 08/05/2022 BMI 49.04 kg/(m^2). GENERAL: pleasant, female in no apparent distress BREAST: soft, non-tender, symmetric, no dominant mass, normal nipple-areolar complex, no lymphadenopathy, and no nipple discharge (patient attempted to express discharge) Erythema under bilateral breasts c/w yeast CHEST: Normal inspiratory effort ABDOMEN: soft, non-tender, and no masses PELVIC: external genitalia normal, normal Bartholin's glands, urethra, [place]'s glands, no vulvar lesions, no cervical lesions, good vaginal support, physiologic discharge present, normal appearing perineal body and perianal region BIMANUAL: uterus normal size, shape and consistency, no adnexal masses, and non-tender RECTOVAGINAL: deferred. NEURO: alert and oriented x3,exam grossly non-focal EXTREMITIES: normal ASSESSMENT/PLAN: 1) Health maintenance: Pap done with HPV. Nutrition, exercise and routine health maintenance exams reviewed. 2) Contraception: IUD. Reviewed non contraceptive benefits of Mirena IUD. 3) Nipple discharge - seems to be resolving & had negative imaging today. If doesn't complete resolve or worsens at any time patient to contact the office and would refer to general surgery at that time. 4) Follow up one year or sooner as needed 5) Skin yeast infection - rx nystatin ointment Johnson Lane MD documented in this encounterPar[facility]09-20-2022 History of Present illness Narrative* RT Miguel Angel(R) - 08/16/2022 1:30 PM EDT Radiology Service Progress Note PATIENT NAME: Bee Church DATE OF SERVICE: August 16, 2022 TIME: 1:14 PM PATIENT IDENTITY VERIFICATION COMPLETED USING TWO (2) IDENTIFIERS: Name and Date of confirmedby patient verbally. FALL SCREENING: Has the patient had 2 falls in the last year or 1 fall with injury or currently using an Ambulatory Assistive Device (Walker, Cane, Wheelchair, Crutches, etc.)? No PATIENT GENDER DATA: Female. status: : No status: NO. PATIENT RELEVANT IMPLANT DATA REVIEWED: Not Applicable RADIOLOGY DEPARTMENT: Mammography PERIPHERAL IV DATA: Not applicable SIGNED BY: RT Miguel Angel(R) August 16, 2022 1:14 PM documented in this encounterPar[facility]09-13-2022 Miscellaneous Notes* Telephone Encounter - Manuela Parikh LPN - 08/09/2022 9:54 AM EDT Pt notified of response & verbalizes understanding. Manuela Parikh LPN * Telephone Encounter - Dayana Herron LPN - 08/09/2022 8:27 AM EDT Message left to call back for update. Dayana Herron LPN * Telephone Encounter - Maren Kemp APRN.CNP - 08/09/2022 7:44 AM EDT There than blood sugar being mildly elevated which is probably due to non fasting status her blood work is normal. Maren Kemp APRN.CNP documented in this encounterPar[facility]09-12-2022 History of Present illness Narrative* Maren Kemp APRN.BEVERAGE HOST - 08/08/2022 10:27 AM EDT 08/08/2022 Patient presents with: Breathing Problem: Discharge (yellow/green) from right breast x1 day SUBJECTIVE: This is a 37 year old that is here today for Above Complaints. Had an incident of nipple discharge from right breast yesterday. Patient reports her shirt felt wetso she looked down and saw discharge. She reports she was also able to manually express some discharge which was yellowish/green in color. Admits both breasts feeling hanks but according to her chart she should be on her period at this time. Reports she has the mirena in so she does not mensurate.Is not currently or . Denies fevers, chills, medications changes, breast pain, breast skin/nipple changes, excessive warmth to breast, or breast/axillary lumps No past medical history on file. ALLERGIES Seasonal Allergies and Shellfish Containing Products MEDICATIONS Current Outpatient Medications Medication Sig levonorgestrel (MIRENA) 20 mcg/24 hours (7 yrs) 52 mg IUD 1 Each by INTRAUTERINE route one time only. No current facility-administered medications for this visit. Medications and allergies reviewed by this provider. SOCIAL HISTORY Social History Tobacco Use Smoking status: Never Smokeless tobacco: Never Substance Use Topics Alcohol use: Yes Comment: socially Drug use: No REVIEW OF SYSTEMS All other reviewed and negative other than HPI. OBJECTIVE: BP 138/96 Pulse 102 Temp 37.1 C (98.8 F) Resp 18 Wt 128.5 kg (283 lb 3.2 oz) LMP 08/05/2022 (Exact Date) SpO2 97% BMI 48.61 kg/m . Vital signs reviewed by this provider. APPEARANCE Well appearing, alert, in no acute distress, well-hydrated, well nourished. and Overweight BREAST FEMALE Symmetrical, normal consistency without masses., No dimpling or skin changes, Normal nipples without discharge, and no axillary lymphadenopathy HIV SCREENING Never done PAP TESTING Never done HPV TESTING Never done COVID-19 VACCINE(2 - Booster for Andrey series) due on 08/19/2021 INFLUENZA(1) due on 07/28/2022 DEPRESSION SCREENING due on 09/15/2022 DTAP,TDAP,TD(2 - Td or Tdap) due on 12/06/2027 HEPATITIS C SCREENING Completed ASSESSMENT/PLAN: 1. Nipple discharge - ICD9: 611.79, ICD10: N64.52 - consider papilloma vs duct ectasia vs hyperprolactinemia vs less likely cancerous process - DIANE DIAGNOSTIC RT - US BREAST LTD RT - HCG QUAL UR B/O - PROLACTIN BLD - COMP METABOLIC PANEL - TSH BLD - follow-up pending testing, to ER with red flag symptoms Maren Kemp APRN.AKANKSHA Prescription instructions reviewed with patient as applicable. Patient advised if symptoms do not improve or if symptoms worsen sooner, to contact their primary care physician. Potential red flag symptoms discussed with the patient. Reviewed appropriate action plan to take if red flag symptoms occur. Patient agreeable to treatment plan. I spent a total of 35 minutes on the date of the service which included preparing to see the patient, [id number] patient care, completing clinical documentation, obtaining and/or reviewing separately obtained history, performing a medically appropriate examination, counseling and educating the pat ient/family/caregiver, and ordering medications, tests, or procedures. documented in this encounterPar[facility]07-29-2022 Miscellaneous Notes* Telephone Encounter - Katherine Chiang Ma - 06/24/2022 11:46 AM EDT Pt notified of results via [employer] under result note. If questions pt to contact the office. Katherine Chiang Ma * Telephone Encounter - Katherine Chiang Ma - 06/24/2022 11:45 AM EDT ----- Message from Napoleon Johnson MD sent at 06/24/2022 8:53 AM EDT ----- Urine culture shows contamination without clear infection. If symptoms are improved with bactrim, would have her finish the 3 day course. Recommend she continue to push PO fluids and call with worsening symptoms. documented in this encounterParma [facility]07-26-2022 History of Present illness Narrative* Napoleon Johnson MD - 06/21/2022 4:09 PM EDT Chief Complaint Patient presents with: UTI: C/O s/sx HPI Bee Church is a 37 year old female who presents here today for Above Complaints.. Patient c/o urinary frequency, dysuria, lower abdominal pain which started this morning. Denies fever/chills, nausea/vomiting, flank pain. Not taking anything OTC for symptoms, but is drinking more water. Admits to spotting today. Past medical history, appointments, medications, allergies reviewed. Previous Medical History No past medical history on file. Previous Surgical History PAST SURGICAL HISTORY Procedure Laterality Date D AND C Family History FAMILY HISTORY Problem Relation Age of Onset other (brain tumor) Mother other (heart murmur) Sister Drug abuse Sister other (lung ca) Sister Patient Allergies ALLERGIES Allergen Reactions Seasonal Allergies Other: See Comments Shellfish Containin* Vomiting Current Medications Current Outpatient Medications on File Prior to Visit Medication Sig levonorgestrel (MIRENA) 20 mcg/24 hours (7 yrs) 52 mg IUD 1 Each by INTRAUTERINE route one time only. scopolamine (TRANSDERM-SCOP) patch 1.5 mg/72 hr (1 mg over 3 days) Apply 1 Patch as directed every 72 hours. (Patient not taking: Reported on 06/21/2022 ) No current facility-administered medications on file prior to visit. Social History Social History Tobacco Use Smoking status: Never Smoker Smokeless tobacco: Never Used Substance Use Topics Alcohol use: Yes Comment: socially Drug use: No Review of Symptoms REVIEW OF SYSTEMS See HPI EXAM: BP 128/80 Pulse 93 Temp 37 C (98.6 F) Resp 16 Wt 129.7 kg (286 lb) LMP 06/14/2022 (Exact Date) SpO2 97% BMI 49.09 kg/m General Appearance: Well appearing, alert, in no acute distress, well-hydrated, well nourished. Abdomen: Normal abdominal exam, Abdomen soft, non-tender. Bowel sounds normal. No masses, organomegaly. Health Maintenance List HIV SCREENING Never done PAP TESTING Never done HPV TESTING Never done COVID-19 VACCINE(2 - Booster for Andrey series) due on 08/19/2021 INFLUENZA(1) due on 07/28/2022 DEPRESSION SCREENING due on 09/15/2022 DTAP,TDAP,TD(2 - Td or Tdap) due on 12/06/2027 HEPATITIS C SCREENING Completed ASSESSMENT/PLAN: 1. Dysuria - ICD9: 788.1, ICD10: R30.0 acute - UA positive for kevin esterase and hematuria - Send urine for culture - Begin treatment with Bactrim DS BID for 3 days - Patient education for prevention given - UA DIP, URINE (POC) - URINE CULTURE - SULFAMETHOXAZOLE 800 MG-TRIMETHOPRIM 160 MG TABLET Napoleon Johnson MD documented in this [facility]04-30-2022 Miscellaneous Notes* Telephone Encounter - Bronson Medrano MD - 03/26/2022 3:13 PM EDT See MyChart reply documented [facility] this [facility] Miscellaneous Notes* Telephone Encounter - Olivia Estrada LPN - 03/06/2022 12:45 PM EDT Spoke with patient on the phone. Gave results from SALES RESEARCH ANALYST in urgent care. Verbalized understanding. documented in this [facility]04-10-2022 Miscellaneous Notes* Telephone Encounter - Olivia Estrada LPN - 03/06/2022 12:44 PM EDT Spoke with patient on phone. Let her know results from urgent care. She verbalized understanding. documented in this [address]10-2022 Miscellaneous Notes* Telephone Encounter - Iliana Villela LPN - 03/06/2022 12:30 PM EDT Transferred patient to [facility] for test results. Iliana Villela LPN documented in this encounterPar[facility]04-10-2022 Miscellaneous Notes* Telephone Encounter - Deidre Willis RN - 03/06/2022 12:23 PM EDT Images from the original note were not included. Patient states that she received her urine culture results and calling to see if antibiotic that was prescribed will work for infection. Provided information from telephone encounter dated 03/06, Cecily Negro APRN.BEVERAGE HOST 03/06/22 11:33 AM Note Urine culture was negative. No indication to start the antibiotic. Follow up with PCP if symptoms continue. Patient has further questions. Conferenced to [facility] for further assistance. documented in this encounterPar[facility]04-10-2022 Miscellaneous Notes* Telephone Encounter - Abi Perez RN - 03/06/2022 12:18 PM EDT Patient calling for health information. Patient denies any new or worsening symptoms of which a provider is not aware: Yes. Complains of same belly pain. Since symptoms persistent, advised her mention to express care today and make a EC follow up appt [facility]. Appt center open 24 hours. She seen urine labs on MyChart and wondering if taking correct antibiotic. Conferenced her to [facility]. She was seen there on 03/04. See visit note NOC closing was given as per below GO TO THE EMERGENCY ROOM OR CALL 911 IF: * You develop any new symptoms * Your condition worsens * You are concerned or anxious about your condition for any other reason. If you have any questions, you can call Nurse communication analyst back. documented in this encounterPar[facility]04-08-2022 History of Present illness Narrative* Estefani Jarrett APRN.AKANKSHA - 03/04/2022 4:39 PM EDT Subjective The history is provided by the patient. No language pathologist was used. HPI Bee Church is a 37 year old female who presents today for CC of vaginal discharge and itching, as well as cloudy urine, and generalized abdominal pain Positive for Vaginal itch or discharge, Negative for Dysuria, Increase in frequency of urination, Urgency, Sense of incomplete void, Fevers, Vomiting, Diarrhea, Abdominal pain , Back/Flank pain and Blood in urine Chance of : No Last intercourse: n/a Any self-treatment attempted: Yes Number of previous UTI's in last 6 months:0 Number of previous UTI's in last 12 months: 1 Aggravating Factors: none Alleviating Factors include tried monostat with minimal relief in symptoms. BP 124/88 Pulse 99 Temp 36.4 C (97.6 F) Resp 20 Wt 134.6 kg (296 lb 12.8 oz) SpO2 99% BMI 50.95 kg/m Social History Tobacco Use Smoking status: Never Smoker Smokeless tobacco: Never Used Substance Use Topics Alcohol use: Yes Comment: socially Drug use: No No past medical history on file. I have confirmed and edited as necessary, the [facility] Review of Systems Constitutional: Negative for chills and fever. Gastrointestinal: Negative for abdominal pain. Genitourinary: Positive for dysuria. Negative for flank pain, frequency, hematuria and urgency. Vaginal discharge and itching Objective Physical Exam Vitals and nursing note reviewed. Constitutional: Appearance: Normal appearance. Abdominal: General: Bowel sounds are normal. There is no abdominal bruit. Palpations: Abdomen is not rigid. There is no mass or pulsatile mass. Tenderness: There is no abdominal tenderness. There is no guarding or rebound. Negative signs include Cano's sign and McBurney's sign. Genitourinary: Comments: Declined vaginal exam will self swab Neurological: Mental Status: She is alert and oriented to person, place, and time. Psychiatric: Mood and Affect: Affect normal. ASSESSMENT/PLAN: 1. Cloudy urine - ICD9: 791.9, ICD10: R82.90 (primary diagnosis) Will send urine for culture Patient will be on cruise, given rx for macrobid, will start if culture positive - UA DIP, URINE (POC) - URINE CULTURE 2. Vaginal discharge - ICD9: 623.5, ICD10: N89.8 Will treat for yeast infection with fluconazole if other treatment needed will need to send to pharmacy. - KIA / TRICHOMONAS AMPLIFICATION - BACTERIAL VAGINOSIS AMPLIFICATION Diagnosis and treatment plan were discussed and questions were answered to the patient's satisfaction. Pt acknowledged understanding of concepts and follow up plan. Specific signs and symptoms that would indicate the need for higher level of care were discussed indetail warranting prompt ER evaluation. Estefani Jarrett APRN.CNP [facility] Instructions* Patient Instructions* Estefani Jarrett APRN.CNP - 03/04/2022 4:39 PM EDT ASSESSMENT/PLAN: 1. Cloudy urine - ICD9: 791.9, ICD10: R82.90 (primary diagnosis) Will send urine for culture Patient will be on cruise, given rx for macrobid, will start if culture positive - UA DIP, URINE (POC) - URINE CULTURE 2. Vaginal discharge - ICD9: 623.5, ICD10: N89.8 Will treat for yeast infection with fluconazole if other treatment needed will need to send to pharmacy. - KIA / TRICHOMONAS AMPLIFICATION - BACTERIAL VAGINOSIS AMPLIFICATION -Follow up with PCP or return to clinic if symptoms not improving in 3 days or if you develop any new (or worsening) symptoms such as fever, chills or back pain go to ER. [facility] Miscellaneous Notes* Telephone Encounter - Niki Garcia RN - 02/25/2022 3:48 PM EDT Patient called and notified that provider had sent in prescription. Patient voices understanding. Niki Garcia RN * Telephone Encounter - Yasmin Syed APRN.CNS - 02/25/2022 3:33 PM EDT ok * Telephone Encounter - Niki Garcia RN - 02/25/2022 3:14 PM EDT Patient calls and states that she is set to go on a cruise. Patient asking if there is any way provider can write a prescription for patch that helps with motion sickness? Patient's pharmacy is [facility]. Please review and advise, Niki Garcia RN [facility]* Diagnosis Cloudy urine- Primary Other nonspecific finding on examination of urine Vaginal discharge Leukorrhea, not specified as infective [facility] Diagnosis Dysuria- Primary [facility]* Diagnosis Nipple discharge- Primary Other sign and symptom in breast [facility]* Diagnosis Encounter for gynecological examination without abnormal finding- Primary Routine gynecological examination Encounter for screening for malignant neoplasm of cervix Screening for malignant neoplasm of the cervix Special screening examination for human papillomavirus (HPV) Encounter for screening mammogram for malignant neoplasm of breast Other screening mammogram [facility] Diagnosis Nipple discharge Other sign and symptom in breast [facility]* Diagnosis Nipple discharge Other sign and symptom in breast [facility]* Diagnosis Routine medical exam- Primary Routine general medical examination at a health care facility Screening, lipid Screening for lipoid disorders [facility] Diagnosis Routine general medical examination at a health care facility- Primary Screening, lipid Screening for lipoid disorders [facility]* Diagnosis Routine medical exam- Primary Routine general medical examination at a health care facility Need for immunization against influenza Need for prophylactic vaccination and inoculation against influenza Post-COVID chronic cough Class 3 severe obesity due to excess calories without serious comorbidity with body mass index (BMI) of 45.0 to 49.9 in adult (HCC) [facility]* Diagnosis Hirsutism- Primary Hair loss Alopecia, unspecified Unintended weight gain Abnormal weight gain Nipple discharge Other sign and symptom in breast [facility]* Diagnosis Skin lesion- Primary Unspecified disorder of skin and subcutaneous tissue [facility] Diagnosis Dysuria- Primary Gross hematuria [facility] Diagnosis Encounter for screening mammogram for breast cancer [facility] Diagnosis Encounter for gynecological examination (general) (routine) without abnormal findings- Primary Screening for cervical cancer Screening for malignant neoplasm of the cervix Encounter for screening for human papillomavirus (HPV) Special screening examination for human papillomavirus (HPV) Encounter for screening mammogram for breast cancer Dense breast tissue Breast discharge Other sign and symptom in breast Counseling for control regarding intrauterine device (IUD) Encounter for removal of intrauterine contraceptive device [facility] Diagnosis Encounter for screening mammogram for breast cancer documented [facility] this encounter [facility] noteNo assessment information availableWTuscarawas Hospital Work Phone: Evaluation note* Diagnosis ETD (Eustachian tube dysfunction), left- Primary [facility]* Diagnosis Pierced ear infection, right, initial encounter- Primary documented [facility] this [facility]* Diagnosis Routine medical exam- Primary Routine general medical examination at a health care facility Dysfunction of left eustachian tube Dysfunction of Eustachian tube Atypical chest pain Other chest pain Class 3 severe obesity due to excess calories with body mass index (BMI) of 45.0 to 49.9 in adult, unspecified whether serious comorbidity present (HCC) Excessive daytime sleepiness White coat syndrome with ?HTN Unspecified essential hypertension Encounter for immunization Need for other specified prophylactic vaccination against single bacterial disease Screening for depression Encounter for screening examination for other mental health and behavioral disorders [facility]* Diagnosis Acute non-recurrent maxillary sinusitis- Primary documented [facility] this encounter [facility]* Diagnosis Dysfunction of left eustachian tube- Primary Dysfunction of Eustachian tube documented in this encounter [facility] for referral (narrative)* Diagnostic Procedure Only (Routine) - Authorized Specialty Diagnoses / Procedures Referred By Norma norman Referred To Contact [facility] Diagnoses Nipple discharge Procedures US BREAST LTD RT US BREAST UNI REAL TIME WITH IMAGE LIMITED PodlogMaren wood APRN.BEVERAGE HOST [address] [place] [address] [facility] [address] [place] [address] Referral ID Status Reason Start Date Expiration Date Visits Requested Visits Authorized [id number] Authorized Auto-Generat ed Referral 08/08/2022 09/07/2023 1 1 * Diagnostic Procedure Only (Routine) - Authorized Specialty Diagnoses / Procedures Referred By Briceac t Referred To Contact [facility] Diagnoses Nipple discharge Procedures DIANE DIAGNOSTIC RT DIAGNOSTIC MAMMOGRAPHY COMPUTER-AIDED DETCJ UNI PodlogMaren wood APRN.BEVERAGE HOST [address] [place] [address] [facility] [address] [place] [address] Referral ID Status Reason Start Date Expiration Date Visits Requested Visits Authorized [id number] Authorized Auto-Generat ed Referral 08/08/2022 09/07/2023 1 1 [facility] for referral (narrative)* Diagnostic Procedure Only (Routine) - Authorized Specialty Diagnoses / Procedures Referred By Norma t Referred To Contact [facility] Diagnoses Encounter for screening mammogram for malignant neoplasm of breast Procedures DIANE SCREENING SCREENING MAMMOGRAPHY BI 2-VIEW BREAST INC CAD Johnson Lane MD [address] [place] [address] [facility] [address] [place] [address] Referral ID Status Reason Start Date Expiration Date Visits Requested Visits Authorized [id number] Authorized Auto-Generat ed Referral 08/16/2022 09/15/2023 1 1 [facility] for referral (narrative)* Diagnostic Procedure Only (Routine) - Closed Specialty Diagnoses / Procedures Referred By Norma t Referred To Contact [facility] Diagnoses Nipple discharge Procedures US BREAST LTD RT US BREAST UNI REAL TIME WITH IMAGE LIMITED Maren Kemp APRN.BEVERAGE HOST [address] [place] [address] [facility] [address] [place] [address] Referral ID Status Reason Start Date Expiration Date V isits Requested Visits Authorized [id number] Closed Auto-Generate d Referral 08/08/2022 09/07/2023 1 1 [facility] for referral (narrative)* Diagnostic Procedure Only (Routine) - Authorized Specialty Diagnoses / Procedures Referred By Contac t Referred To Contact [facility] Diagnoses Hirsutism Unintended weight gain Procedures PELVIC US I US PELVIC NONOBSTETRIC REAL-TIME IMAGE COMPLETE Johnson Lane MD [address] [place] [address] [facility] [address] [place] [address] Referral ID Status Reason Start Date Expiration Date Visits Requested Visits Authorized [id number] Authorized Auto-Generat ed Referral 03/28/2023 03/27/2024 1 1 * Diagnostic Procedure Only (Routine) - Pending Review Specialty Diagnoses / Procedures Referred By Contac t Referred To Contact [facility] Diagnoses Hirsutism Hair loss Unintended weight gain Procedures US FEMALE PELVIS TRANSABD LTD US PELVIC NONOBSTETRIC IMAGE DCMTN LIMITED/F/U Johnson [address] MD [address] [place] [address] [facility] Referral ID Status Reason Start Date Expiration Date Visits Requested Visits Authorized [id number] Pending Review Auto-Generat ed Referral 03/28/2023 04/26/2024 1 1 * Diagnostic Procedure Only (Routine) - Pending Review Specialty Diagnoses / Procedures Referred By Contac t Referred To Contact [facility] Diagnoses Hirsutism Hair loss Unintended weight gain Procedures US FEMALE PELVIS TRANSVAG US TRANSVAGINAL Johnson Lane MD [address] [place] [address] [facility] Referral ID Status Reason Start Date Expiration Date Visits Requested Visits Authorized [id number] Pending Review Auto-Generat ed Referral 03/28/2023 04/26/2024 1 1 T [facility] for referral (narrative)* Diagnostic Procedure Only (Routine) - Authorized Specialty Diagnoses / Procedures Referred By Contac t Referred To Contact [facility] Diagnoses Encounter for screening mammogram for breast cancer Procedures DIANE SCREENING W LUISITO SCREENING DIGITAL BREAST TOMOSYNTHESIS BI SCREENING MAMMOGRAPHY BI 2-VIEW BREAST INC CAD Bronson Medrano MD [address] [place] [address] [facility] [address] [place] [address] Referral ID Status Reason Start Date Expiration Date Visits Requested Visits Authorized [id number] Authorized Auto-Generat ed Referral 10/19/2024 1 1 [facility] for referral (narrative)* Outpatient Procedure (Routine) - Pending Review Specialty Diagnoses / Procedures Referred By Contac t Referred To Contact [facility] Diagnoses Counseling for control regarding intrauterine device (IUD) Encounter for removal of intrauterine contraceptive device Procedures INSERT INTRAUTERINE DEVICE LEVONORGESTREL IU 52MG 5 YR INSERT INTRAUTERINE DEVICE Johnson Lane MD [address] [place] [address] [facility] [address] [place] [address] Referral ID Status Reason Start Date Expiration Date Visits Requested Visits Authorized [id number] Pending Review Auto-Generat ed Referral OON/Self Pay Override 01/26/2024 01/25/2025 1 1 * Consult, Test, Treat (Routine) - Pending Review Specialty Diagnoses / Procedures Referred By Contac t Referred To Contact General Surgery / GENERAL SURGERY Diagnoses Breast discharge Procedures CONSULT TO GENERAL SURGERY OFFICE/OUTPATIENT [facility] [address] MD [address] [place] [address] [facility] [address] [place] [address] Referral ID Status Reason Start Date Expiration Date Visits Requested Visits Authorized [id number] Pending Review PCP Requested Referral OON/Self Pay Override 01/26/2024 01/25/2025 1 1 * Diagnostic Procedure Only (Routine) - Authorized Specialty Diagnoses / Procedures Referred By Norma norman Referred To Contact [facility] Diagnoses Encounter for screening mammogram for breast cancer Dense breast tissue Procedures DIANE SCREENING W LUISITO SCREENING DIGITAL BREAST TOMOSYNTHESIS BI SCREENING MAMMOGRAPHY BI 2-VIEW BREAST INC CAD Johnson Lane MD [address] [place] [address] [facility] [address] [place] [address] Referral ID Status Reason Start Date Expiration Date Visits Requested Visits Authorized [id number] Authorized Auto-Generat ed Referral OON/Self Pay Override 01/26/2024 02/24/2025 1 1 [facility] for referral (narrative)* Diagnostic Procedure Only (Routine) - New Request Specialty Diagnoses / Procedures Referred By Norma norman Referred To [facility] Diagnoses Class 3 severe obesity due to excess calories with body mass index (BMI) of 45.0 to 49.9 in adult, unspecified whether serious comorbidity present (HCC) Excessive daytime sleepiness Primary hypertension Procedures HOME SLEEP APNEA TEST (HSAT) SLEEP STD AIRFLOW HRT RATE&O2 SAT EFFORT UNATT Bronson Medrano MD [address] [place] [address] [facility] [address] [place] [address] Referral ID Status Reason Start Date Expiration Date Visits Requested Visits Authorized [id number] New Request Auto-Generat ed Referral OON/Self Pay Override 08/13/2024 08/13/2025 1 1 [facility] for visit Narrative* Diagnostic Procedure Only (Routine) - Closed Specialty Diagnoses / Procedures Referred By Norma norman Referred To Contact [facility] Diagnoses Nipple discharge Procedures DIANE DIAGNOSTIC RT DIAGNOSTIC MAMMOGRAPHY COMPUTER-AIDED DETCJ UNI Maren Kemp APRN.BEVERAGE HOST [address] [place] [address] [facility] [address] [place] [address] Referral ID Status Reason Start Date Expiration Date V isits Requested Visits Authorized [id number] Closed Auto-Generate d Referral 08/08/2022 09/07/2023 1 1 [facility] for visit Narrative* Outpatient Procedure (Routine) - Authorized Specialty Diagnoses / Procedures Referred By Norma norman Referred To Contact [employer] Diagnoses Encounter for screening mammogram for malignant neoplasm of breast annual Procedures OFFICE/OUTPATIENT EST PT MAY NOT REQ PHYS/QHP annual Bronson Medrano MD [address] [place] [address] Risk Adjustment Specialist [facility] [address] [facility] [place] [address] Referral ID Status Reason Start Date Expiration Date Visits Requested Visits Authorized [id number] Authorized OON/Self Pay Override 12/28/2023 11/26/2024 99 99 [facility] Reason for Referral Specialty Diagnoses / Procedures Referred By Norma norman Referred To Contact Dermatology Diagnoses Skin lesion Procedures CONSULT TO DERMATOLOGY Jeanine Muñoz APRN.BEVERAGE HOST [address] [place] [address] Referral ID Status Reason Start Date Expiration Date Visits Requested Visits Authorized [id number] Ref Not Required PCP Requested Referral 04/05/2023 04/04/2024 1 1 Chief Complaint and Reason for Visit Chief Complaint CP Family History Relationship Condition Age at Onset Recorded Date/T beverly grandmother Diabetes mellitus Unknown mother Malignant neoplasm Unknown Advance Directives Advance Directive Response Recorded Date/ Time Living Will No March 06, 2024 3:15pm Power of Otolaryngology Teacher No March 06 3:15pm Summary Purpose Additional Source Comments Source Comments (unrecognize d section and content) In the event this informatio n is protected by the Federal Confidentiality of Alcohol and Drug Abuse Patient Records regulations: The Federal rules restrict any use of the information to criminally investigate or prosecute any alcohol or drug abuse patient.[facility] Hospital[facility] the event this information is protected by the Federal Confidentiality of Alcohol and Drug Abuse Patient Records regulations: The Federal rules restrict any use of the information to criminally investigate or prosecute any alcohol or drug abuse patient.[facility] HospitalIn the event this information is protected by the Federal Confidentiality of Alcohol and Drug Abuse Patient Records regulations: The Federal rules restrict any use of the information to criminally investigate or prosecute any alcohol or drug abuse patient.[facility] HospitalIn the event this information is protected by the Federal Confidentiality of Alcohol and Drug Abuse Patient Records regulations: The Federal rules restrict any use of the information to criminally investigate or prosecute any alcohol or drug abuse patient.[facility] HospitalIn the event this information is protected by the Federal Confidentiality of Alcohol and Drug Abuse Patient Records regulations: The Federal rules restrict any use of the information to criminally investigate or prosecute any alcohol or drug abuse patient.[facility] HospitalIn the event this information is protected by the Federal Confidentiality of Alcohol and Drug Abuse Patient Records regulations: The Federal rules restrict any use of the information to criminally investigate or prosecute any alcohol or drug abuse patient.[facility] HospitalIn the event this information is protected by the Federal Confidentiality of Alcohol and Drug Abuse Patient Records regulations: The Federal rules restrict any use of the information to criminally investigate or prosecute any alcohol or drug abuse patient.[facility] HospitalIn the event this information is protected by the Federal Confidentiality of Alcohol and Drug Abuse Patient Records regulations: The Federal rules restrict any use of the information to criminally investigate or prosecute any alcohol or drug abuse patient.[facility] HospitalIn the event this information is protected by the Federal Confidentiality of Alcohol and Drug Abuse Patient Records regulations: The Federal rules restrict any use of the information to criminally investigate or prosecute any alcohol or drug abuse patient.[facility] HospitalIn the event this information is protected by the Federal Confidentiality of Alcohol and Drug Abuse Patient Records regulations: The Federal rules restrict any use of the information to criminally investigate or prosecute any alcohol or drug abuse patient.[facility] HospitalIn the event this information is protected by the Federal Confidentiality of Alcohol and Drug Abuse Patient Records regulations: The Federal rules restrict any use of the information to criminally investigate or prosecute any alcohol or drug abuse patient.[facility] HospitalIn the event this information is protected by the Federal Confidentiality of Alcohol and Drug Abuse Patient Records regulations: The Federal rules restrict any use of the information to criminally investigate or prosecute any alcohol or drug abuse patient.[facility] HospitalIn the event this information is protected by the Federal Confidentiality of Alcohol and Drug Abuse Patient Records regulations: The Federal rules restrict any use of the information to criminally investigate or prosecute any alcohol or drug abuse patient.[facility] HospitalIn the event this information is protected by the Federal Confidentiality of Alcohol and Drug Abuse Patient Records regulations: The Federal rules restrict any use of the information to criminally investigate or prosecute any alcohol or drug abuse patient.[facility] HospitalIn the event this information is protected by the Federal Confidentiality of Alcohol and Drug Abuse Patient Records regulations: The Federal rules restrict any use of the information to criminally investigate or prosecute any alcohol or drug abuse patient.[facility] HospitalIn the event this information is protected by the Federal Confidentiality of Alcohol and Drug Abuse Patient Records regulations: The Federal rules restrict any use of the information to criminally investigate or prosecute any alcohol or drug abuse patient.[facility] the event this information is protected by the Federal Confidentiality of Alcohol and Drug Abuse Patient Records regulations: The Federal rules restrict any use of the information to criminally investigate or prosecute any alcohol or drug abuse patient.[facility] HospitalIn the event this information is protected by the Federal Confidentiality of Alcohol and Drug Abuse Patient Records regulations: The Federal rules restrict any use of the information to criminally investigate or prosecute any alcohol or drug abuse patient.[facility] HospitalIn the event this information is protected by the Federal Confidentiality of Alcohol and Drug Abuse Patient Records regulations: The Federal rules restrict any use of the information to criminally investigate or prosecute any alcohol or drug abuse patient.[facility] HospitalIn the event this information is protected by the Federal Confidentiality of Alcohol and Drug Abuse Patient Records regulations: The Federal rules restrict any use of the information to criminally investigate or prosecute any alcohol or drug abuse patient.[facility] HospitalIn the event this information is protected by the Federal Confidentiality of Alcohol and Drug Abuse Patient Records regulations: The Federal rules restrict any use of the information to criminally investigate or prosecute any alcohol or drug abuse patient.[facility] HospitalIn the event this information is protected by the Federal Confidentiality of Alcohol and Drug Abuse Patient Records regulations: The Federal rules restrict any use of the information to criminally investigate or prosecute any alcohol or drug abuse patient.[facility] HospitalIn the event this information is protected by the Federal Confidentiality of Alcohol and Drug Abuse Patient Records regulations: The Federal rules restrict any use of the information to criminally investigate or prosecute any alcohol or drug abuse patient.[facility] HospitalIn the event this information is protected by the Federal Confidentiality of Alcohol and Drug Abuse Patient Records regulations: The Federal rules restrict any use of the information to criminally investigate or prosecute any alcohol or drug abuse patient.[facility] HospitalIn the event this information is protected by the Federal Confidentiality of Alcohol and Drug Abuse Patient Records regulations: The Federal rules restrict any use of the information to criminally investigate or prosecute any alcohol or drug abuse patient.[facility] HospitalIn the event this information is protected by the Federal Confidentiality of Alcohol and Drug Abuse Patient Records regulations: The Federal rules restrict any use of the information to criminally investigate or prosecute any alcohol or drug abuse patient.[facility] HospitalIn the event this information is protected by the Federal Confidentiality of Alcohol and Drug Abuse Patient Records regulations: The Federal rules restrict any use of the information to criminally investigate or prosecute any alcohol or drug abuse patient.[facility] HospitalIn the event this information is protected by the Federal Confidentiality of Alcohol and Drug Abuse Patient Records regulations: The Federal rules restrict any use of the information to criminally investigate or prosecute any alcohol or drug abuse patient.[facility] HospitalIn the event this information is protected by the Federal Confidentiality of Alcohol and Drug Abuse Patient Records regulations: The Federal rules restrict any use of the information to criminally investigate or prosecute any alcohol or drug abuse patient.[facility] HospitalIn the event this information is protected by the Federal Confidentiality of Alcohol and Drug Abuse Patient Records regulations: The Federal rules restrict any use of the information to criminally investigate or prosecute any alcohol or drug abuse patient.[facility] Hospital[facility] the event this information is protected by the Federal Confidentiality of Alcohol and Drug Abuse Patient Records regulations: The Federal rules restrict any use of the information to criminally investigate or prosecute any alcohol or drug abuse patient.[facility] Hospital[facility] the event this information is protected by the Federal Confidentiality of Alcohol and Drug Abuse Patient Records regulations: The Federal rules restrict any use of the information to criminally investigate or prosecute any alcohol or drug abuse patient.[facility] Hospital[facility] the event this information is protected by the Federal Confidentiality of Alcohol and Drug Abuse Patient Records regulations: The Federal rules restrict any use of the information to criminally investigate or prosecute any alcohol or drug abuse patient.[facility] Hospital[facility] the event this information is protected by the Federal Confidentiality of Alcohol and Drug Abuse Patient Records regulations: The Federal rules restrict any use of the information to criminally investigate or prosecute any alcohol or drug abuse patient.[facility] Hospital[facility] the event this information is protected by the Federal Confidentiality of Alcohol and Drug Abuse Patient Records regulations: The Federal rules restrict any use of the information to criminally investigate or prosecute any alcohol or drug abuse patient.[facility] Hospital[facility] the event this information is protected by the Federal Confidentiality of Alcohol and Drug Abuse Patient Records regulations: The Federal rules restrict any use of the information to criminally investigate or prosecute any alcohol or drug abuse patient.[facility] Reason for Visit (unrecogniz ed section and content) Reason Comments Patient Question Reason Comments UTI pain, itching, cloud y urine, abd pain x1.5 weeks Specialty Diagnoses / Procedures Referred By Contac t Referred To Contact URGENT CARE CLINIC Diagnoses Possible UTI Procedures Possible UTI Estefani Jarrett, COMMERCIAL INTERNSHIP.BEVERAGE HOST [address] [place] [address] [facility] [address] [place] [address] Referral ID Status Reason Start Date Expiration Date Visits Requested Visits Authorized [id number] Pending Review OON/Self Pay Override 03/04/2022 06/02/2022 1 1 Reason Comments Medication Question Reason Comments Results Reason Onset Date Comments Results 03/06/2022 Reason Comments UTI C/O s/sx Reason Comments Breathing Problem Discharge (yellow/gr een) from right breast x1 day Reason Onset Date Comments Yearly Exam 08/16/2022 Reason Comments Radiology US Specialty Diagnoses / Procedures Referred By Contac t Referred To Contact [facility] Diagnoses Nipple discharge Procedures US BREAST LTD RT US BREAST UNI REAL TIME WITH IMAGE LIMITED Maren Kemp APRN.BEVERAGE HOST [address] [place] [address] [facility] [address] [place] [address] Referral ID Status Reason Start Date Expiration Date V isits Requested Visits Authorized [id number] Closed Auto-Generate d Referral 08/08/2022 09/07/2023 1 1 Reason Comments Orders Reason Comments Yearly Exam Reason Comments Breast Problem Reason Comments Appointment Left message for pat ient to call office. Appt on 06/14 needs cancelled. Patient was rescheduled for 06/16 at 10:20am. Please make sure patient arrives by 10:05am. If this date doesn't workPlease find education spot to reschedule. Thanks Reason Comments Urinary Frequency Reason Comments urine culture results Reason Comments Bean Dumper Exam Specialty Diagnoses / Procedures Referred By Contac t Referred To Contact POWER CRANE OPERATOR Diagnoses Encounter for screening mammogram for malignant neoplasm of breast annual Procedures OFFICE/OUTPATIENT EST PT MAY NOT REQ PHYS/[place] [address] [place] [address] Risk Adjustment Specialist [facility] [address] [place] [address] Referral ID Status Reason Start Date Expiration Date Visits Requested Visits Authorized [id number] Authorized OON/Self Pay Override 12/28/2023 11/26/2024 99 99 Reason Comments Ear Problem left ear muffled and pain x 3 weeks off and on Reason Comments infected earring spot Reason Comments Yearly Exam Reason Comments Head Congestion Chest congestion, he adache,fullness in head, bilat ear pain, throat, tightness in chest with cough x 10 days Reason Comments Ear Pain left ear, sinus drai nage on left side x 2 days Care Teams (unrecognized sec tion and content) Flexo Press Operator Relationship Specialty Start Date End Date Bronson Medrano MD [address] [place], [place] [address] PCP - General Internal Medicine 09/21/21 Flexo Press Operator Relationship Specialty Start Date End Date Bronson Medrano MD [address] [place], [place] [id number] PCP - General Internal Medicine 09/21/21 Flexo Press Operator Relationship Specialty Start Date End Date Bronson Medrano MD [address] [place] [address] PCP - General Internal Medicine 09/21/21 Flexo Press Operator Relationship Specialty Start Date End Date Bronson Medrano MD [address] [facility] [place] [address] PCP - General Internal Medicine 09/21/21 Flexo Press Operator Relationship Specialty Start Date End Date Bronson Medrano MD [address] [facility] [place] [address] PCP - General Internal Medicine 09/21/21 Flexo Press Operator Relationship Specialty [place] [address] [place] [address], [place] [address] PCP - General Internal Medicine 09/21/21 Flexo Press Operator Relationship Specialty Start Date End Date Bronson Medrano MD [address] [place] [address], [place] [address] PCP - General Internal Medicine 09/21/21 Flexo Press Operator Relationship Specialty Start [place] [address] [place] [address], [place] [address] PCP - General Internal Medicine 09/21/21 Flexo Press Operator Relationship Specialty Start [place] [address] [place] [address], [place] [address] PCP - General Internal Medicine 09/21/21 Flexo Press Operator Relationship Specialty Start Date End Date Bronson Medrano MD [address] [facility] [place] [address] PCP - General Internal Medicine 09/21/21 Flexo Press Operator Relationship Specialty Start Date End Date Bronson Medrano MD [address] [place] [address], [place] [address] PCP - General Internal Medicine 09/21/21 Flexo Press Operator Relationship Specialty Start Date End Date Bronson Medrano MD [address] [facility] [place] [address] PCP - General Internal Medicine 09/21/21 Flexo Press Operator Relationship Specialty Start Date End Date Bronson Medrano MD [address] [facility] [place] [address] PCP - General Internal Medicine 09/21/21 Flexo Press Operator Relationship Specialty Start Date End Date Bronson Medrano MD [address] [facility] [place] [address] PCP - General Internal Medicine 09/21/21 Flexo Press Operator Relationship Specialty Start Date End Date Bronson Medrano MD [address] [facility] [place] [address] PCP - General Internal Medicine 09/21/21 Flexo Press Operator Relationship Specialty Start Date End Date Bronson Medrano MD [address] [facility] [place] [address] PCP - General Internal Medicine 09/21/21 Flexo Press Operator Relationship Specialty Start Date End Date Bronson Medrano MD [address] [facility] [place] [address] PCP - General Internal Medicine 09/21/21 Flexo Press Operator Relationship Specialty Start Date End Date Bronson Medrano MD [address] [facility] [place] [address] PCP - General Internal Medicine 09/21/21 Flexo Press Operator Relationship Specialty Start Date End Date Bronson Medrano MD [address] [facility] [place] [address] PCP - General Internal Medicine 09/21/21 Flexo Press Operator Relationship Specialty Start Date End Date Bronson Medrano MD [address] [facility], [place] [address] PCP - General Internal Medicine 09/21/21 Flexo Press Operator Relationship Specialty Start Date End Date Bronson Medrano MD [address] [facility], [place] [address] PCP - General Internal Medicine 09/21/21 Team Status: Active Member Role Status Dates No Primary Care Physician Family Provider Active Dr. Bronson Medrano MD Primary Care Provider Active Team Status: Inactive Member Role Status Dates Dr. Bronson Medrano MD Primary Care Provider Active Tod Boyd MD Emergency Provider Active Flexo Press Operator Relationship Specialty Start Date End Date Bronson Medrano MD [address] [place] [address] PCP - General Internal Medicine 09/21/21 Flexo Press Operator Relationship Specialty Start Date End Date Bronson Medrano MD [address] [place] [address] PCP - General Internal Medicine 09/21/21 Flexo Press Operator Relationship Specialty Start Date End Date Bronson Medrano MD [address] [facility] [place] [address] PCP - General Internal Medicine 09/21/21 Yasmin Syed, COMMERCIAL INTERNSHIP.STOCKKEEPER [address] [facility] [place] [address] Director Of Publications Internal Medicine 11/04/24 Jeanine Muñoz, COMMERCIAL INTERNSHIP.BEVERAGE HOST [address] [facility] [place] [address] Director Of Publications Internal Medicine 11/04/24 Flexo Press Operator Relationship Specialty Start Date End Date Bronson Medrano MD [address] [facility] [place] [address] PCP - General Internal Medicine 09/21/21 Jeanine Muñoz APRN.BEVERAGE HOST [address] [facility] [place] [address] Director Of Publications Internal Medicine 02/18/25 Yasmin Syed, COMMERCIAL INTERNSHIP.STOCKKEEPER [address] [facility] [place] [address] Director Of Publications Internal Medicine 04/16/25 Flexo Press Operator Relationship Specialty Start Date End Date Bronson Medrano MD [address] [facility] [place] [address] PCP - General Internal Medicine 09/21/21 Jeanine Muñoz COMMERCIAL INTERNSHIP.BEVERAGE HOST [address] [facility] [place] [address] Director Of Publications Internal Medicine 02/18/25 Yasmin Syed, COMMERCIAL INTERNSHIP.STOCKKEEPER [address] [place] [address] Director Of Publications Internal Medicine 04/16/25 Flexo Press Operator Relationship Specialty Start Date End Date Bronson Medrano MD [address] [facility] [place] [address] PCP - General Internal Medicine 09/21/21 Jeanine Muñoz APRN.BEVERAGE HOST [address] [facility] [place] [address] Director Of Publications Internal Medicine 02/18/25 Yasmin Syed, COMMERCIAL INTERNSHIP.STOCKKEEPER [address] [facility] [place] [address] Director Of Publications Internal Medicine 04/16/25 Goals (unrecognized section and content) Goals may be documented in a n alternate section INFORMATION SOURCE (unrecogn ized section and content) DATE CREATED AUTHOR 03/13/2024 [facility] DATE CREATED AUTHOR AUTHOR'S BEATRIZ ATION 05/16/2025 [facility] FOR RECORDS PERTAINING TO PATIENTS WHO ARE OR HAVE BEEN ENROLLED IN A CHEMICAL DEPENDENCY/SUBSTANCEABUSE PROGRAM, SOME INFORMATION MAY BE OMITTED. This clinical summary was aggregated from multiple sources. Caution should be exercised in using it in the provision of clinical care. This summary normalizes information from multiple sources, and as a consequence, information in this document may materially change the coding, format and clinical context of patient data. In addition, data may be omitted in some cases. CLINICAL DECISIONS SHOULD BE BASED ON THE PRIMARY CLINICAL RECORDS. [employer] provides no warranty or guarantee of the accuracy or completeness of information in this document.
[2025-05-20] MEDS: Meclizine HCl 25 MG Tablet PO (06:20)
[2025-05-20] MEDS: Ondansetron ODT 4 MG Tablet 8 MG PO (06:20)
[2025-05-20 07:11] VITALS: BP 133/72; PULSE 75; RESP 16; TEMP 36.6; O2SAT 99
== END 2025-05-20 07:11 | disposition home or self-care (01) ==
PROVIDERS: Emergency Provider Emergency Medicine; PCP Internal Medicine; Visit Provider Emergency Medicine
DX: H81.393 Other peripheral vertigo, bilateral (principal); H69.93 Unspecified Eustachian tube disorder, bilateral; H92.03 Otalgia, bilateral; Z90.49 Acquired absence of other specified parts of digestive tract
CPT/HCPCS: 70480; 99283